=== PATIENT | female | born 1940 | race Caucasian/White ===

== ENCOUNTER 2017-12-31 09:00 | Outpatient (RCR) | payer MEDICARE, OTHER, SELFPAY ==
--- NOTE | 2017-12-23 11:29 | HP.PTEVAL ---
Patient's Visit Information LISBET RIVERA is a 77 year old F referred to Physical Therapy by Yung Woodall DPM with a diagnosis of R plantar fascitis. Date of Evaluation: 12/01/17 Physical Therapist: Peng Burdick - Visit Plan Frequency: 2x /Week Duration: 4 Weeks Plan: Start with US to plantar fascia, stretching of G/S complex, graston to plantar fascia and G/S complex. Aggressive stretching of G/S complex. - Subjective Subjective: Pt. is here today for her initial evaluation with diagnosis of R plantar fascitis. Pt. reports having pain on and off for a few years. Pt. was being treated in [place] as well, but was not having much relief. Pt. has trialed injections, and is currently using a CAM boot which has helped. Pt. is also using night splints. She has been doing her stretches x2 daily as indicated. Pt. reprots increased pain in AMs with her initial steps, and increased pain by the end of the day. She reports minimal pain in off loaded positions. She does have two heel spurs, but reports physician does not believe that they are involved with her current issue. Pt. denies N/T in her R foot, but has pain at bottom of her heel and throughout her arch. Pt. is able to sleep without issues. She is hopeful to reduce symptoms in order to get back to recreational walking activities without limitations. - Pain R heel Pain Intensity (Out of 10): 3 Pain Intensity Range: 2, 7 - Objective POSTURE: Pt. has normal posture in stance. Pt. has slight R foot equinus. Pt. has slight increased wt. shift to L side in stance. PALPATION: Pt. has increased tenderness throughotu achilles tendon, plantar surface of calcaneus, and throughout longitudinal arch, only on R side. NEURO- normal all intact. ROM: R ankle- DF 8deg, PF 48deg. INV 22deg, EVR 16deg. Pt. has normal knee ROM. L ankle- DF 15deg, PF 52deg, INV 20deg, EVER 20deg. Normal knee ROM. MMT- Pt. has normal BLE strength in knees and ankles except- R foot intrinsics 4/5 throughout, and post tib 4/5. GAIT: Pt. ambulates with decreased L step length, early heel off with RLE during stance phase. Pt. reports incerased pain with stance and heel off phases of gait and is antalgic during these two phases. Stairs: Pt. has increased difficulty/pain with descending, slight pain with loading phase of RLE with ascending. SPECIAL TESTING- possitive windlass test both when loaded and unloaded. - Goals Goal 1:: Pt. to be I with HEP. Goal Time Frame: 4-6 Weeks Goal 2:: Pt. to have icnerased R foot DF mobility to 15deg reducing stress on plantar fascia with walking and standing. Goal Time Frame: 4-6 Weeks Goal 3:: Pt. to ambulate unlimited distances with 0-2/10 pain in R foot. Goal Time Frame: 4-6 Weeks Goal 4:: Pt. to have increased foot intrinsic and post tib strength by 1/2 grade to increase stability at R ankle/foot. Goal Time Frame: 4-6 Weeks - Rehabilitation Potential Physical Therapy Diagnosis: Pt. has signs and symptoms consistent with R plantar fascitis and foot equinue. Pt. would benefit from PT to increase R ankle DF mobility/stretching, manual techniques to reduce tension on R plantar fascitis and modalities to reduce symptoms. Rehabilitation Potential: Good - Anticipated Interventions Patient/Client Instruction: Educate patient on: Condition, Plan of Care, Risk Factors, Benefits of Fitness Program For the Purpose of:: To improve safety, To improve health and function, To foster healthy habits, To improve decision making, To facilitate caregiver knowledge, To improve self management, To prevent re-injury Therapeutic Exercise to Include: Strength training, Power training, Balance training, Coordination, Body mechanics, Passive ROM, Active ROM For the Purpose of:: To decrease pain, To increase ROM, To improve nutrient delivery to tissue, To increase oxygenation perfusion, To improve muscle performance and motor function, To improve ability to perform ADL's, To improve gait and locomotor functions, To improve health of tissue, To decrease soft tissue restriction, To increase flexibility/ROM Manual Therapy Techniques to Include: Mobilization, Passive ROM, Functional dry needling, Soft tissue mobilization For the Purpose of:: To decrease pain, To increase ROM, To improve nutrient delivery to tissue, To increase oxygenation perfusion, To improve health of tissue, To decrease soft tissue restriction, To increase flexibility/ROM IF ES: Yes Cryotherapy (ice pack, ice massage): Yes Ultrasound (thermal/non thermal): Yes For the Purpose of:: To decrease pain, To decrease swelling/inflammation, To increase ROM, To improve nutrient delivery to tissue, To increase oxygenation perfusion, To improve muscle performance and motor function Thank you for the opportunity to evaluate your patient. For Medicare and Medicare HMO plans, please review the plan of care and approve it. It will need to be FAXED BACK to us at [phone] for Medicare purposes. Please let me know if there are questions or concerns regarding this plan of care. Physician Signature: Date:
--- NOTE | 2018-07-21 08:52 | HP.PT.NRP ---
HP - Discharge Summary (1) - Patient Information LISBET RIVERA was seen in my office for initial evaluation on 12/01/17. The following Plan of Care was established for this patient: Initial Frequency: 2x /Week Initial Duration: 4 Weeks - Anticipated Interventions Patient/Client Instruction: Educate patient on: Condition, Plan of Care, Risk Factors, Benefits of Fitness Program For the Purpose of:: To improve safety, To improve health and function, To foster healthy habits, To improve decision making, To facilitate caregiver knowledge, To improve self management, To prevent re-injury Therapeutic Exercise to Include: Strength training, Power training, Balance training, Coordination, Body mechanics, Passive ROM, Active ROM For the Purpose of:: To decrease pain, To increase ROM, To improve nutrient delivery to tissue, To increase oxygenation perfusion, To improve muscle performance and motor function, To improve ability to perform ADL's, To improve gait and locomotor functions, To improve health of tissue, To decrease soft tissue restriction, To increase flexibility/ROM Manual Therapy Techniques to Include: Mobilization, Passive ROM, Functional dry needling, Soft tissue mobilization For the Purpose of:: To decrease pain, To increase ROM, To improve nutrient delivery to tissue, To increase oxygenation perfusion, To improve health of tissue, To decrease soft tissue restriction, To increase flexibility/ROM IF ES: Yes Cryotherapy (ice pack, ice massage): Yes Ultrasound (thermal/non thermal): Yes For the Purpose of:: To decrease pain, To decrease swelling/inflammation, To increase ROM, To improve nutrient delivery to tissue, To increase oxygenation perfusion, To improve muscle performance and motor function This patient was last seen in our office 12/29/17. Pertinent comments regarding their Physical therapy will appear below: PT. was seen for her R plantar fasciatis. Pt. has not been seen in several months and will be DC from PT at this point intime. At this point I will be discontinuing this patient from physical therapy. I would be happy to see this patient again in the future if found appropriate by the physician. Thank you! NIKOS YeboahT
== END 2017-12-31 19:00 | disposition home or self-care (01) ==
LOC: PT 09:00
PROVIDERS: Family Provider Family Medicine; PCP Family Medicine; Visit Provider Podiatrist
DX: M72.2 Plantar fascial fibromatosis (principal); M79.671 Pain in right foot
CPT/HCPCS: 97035; 97110; 97161

== ENCOUNTER → 2018-01-26 09:42 | Outpatient (CLI) | payer MEDICARE, OTHER, SELFPAY ==
--- NOTE | 2018-01-26 10:00 | MRI_ITS ---
STUDY: MRI RIGHT REARFOOT WITHOUT CONTRAST REASON FOR EXAM: Female, 77 years old. Pain. Heel spur. Plantar fasciitis. Plantar fascial fibromatosis. TECHNIQUE: Standardized fat and water weighted pulse sequences were obtained in all 3 orthogonal planes. COMPARISON: None. FINDINGS: Normal subcutis adipose space. There is accessory navicular incorporated into the distal posterior tibialis tendon. Normal flexor digitorum longus tendon. Normal flexor hallucis longus tendon. Normal peroneus longus and brevis tendons. Normal tibialis anterior tendon. Normal extensor hallucis longus tendon. Normal extensor digitorum longus tendons. Normal Achilles tendon and teno-osseous insertion. There is a plantar fasciitis with plantar fascial thickening and fascial edema, but without a full-thickness tear. There is a plantar calcaneal spur, but without cancellous marrow edema. Normal intrinsic muscles of the rearfoot. Normal distal tibiofibular syndesmotic ligamentous complex. Normal lateral ligamentous complex. Normal subtalar ligaments and sinus tarsi. Normal deltoid ligamentous complexes. Normal plantar calcaneonavicular (spring) ligament. Normal tibiotalar articulation. Normal talar dome. Normal subtalar articulations. Normal talonavicular articulation. Normal calcaneocuboid articulation. Normal navicular-cuneiform articulations. MRI/Lower Ext/No Jt/w/o IMPRESSION: Plantar fasciitis with heel spur. Electronically Signed: Justin Ma MD at 11:40 EDT , Service support ,
== END ==
PROVIDERS: Family Provider Family Medicine; PCP Family Medicine; Visit Provider Podiatrist
DX: M72.2 Plantar fascial fibromatosis (principal); M77.31 Calcaneal spur, right foot; M79.671 Pain in right foot; M21.6X9 Other acquired deformities of unspecified foot
CPT/HCPCS: 73718

== ENCOUNTER → 2018-05-14 12:12 | Outpatient (CLI) | payer MEDICARE, OTHER, SELFPAY ==
[2014-12-04 18:11] VITALS: BMI 32.5
[2018-05-14 14:32] LABS: ALB/GLOB Ratio 1.1 RATIO (0.9-2.4); AST(SGOT) 63 U/L (15-37); Alanine Aminotransfer ALT/SGPT 119 U/L (13-56); Albumin, Serum 3.5 g/dL (3.2-5.0); Alkaline Phosphatase 252 U/L (45-117); Anion Gap 8 (5-15); BUN 12 mg/dL (7-18); BUN/Creat Ratio 13.1 RATIO (10-20); CPK Total, Creatine Kinase 47 U/L (26-192); CRP 5.79 mg/L (0.0-3.0); Calcium,Total 8.6 mg/dL (8.5-10.1); Chloride 109 mmol/L (98-107); Creatinine, Serum 0.92 mg/dL (0.55-1.02); EST Glomerular Filtration Rate 63 mL/min (>60); Est Glom Filt Rate - Afr Amer 76 mL/min (>60); Globulin 3.3 g/dL (2.2-4.2); Glucose 73 mg/dL (74-106); Potassium 3.9 mmol/L (3.5-5.1); Protein, Total 6.8 g/dL (6.4-8.2); Sodium Level 143 mmol/L (136-145); T4 Free Direct 1.09 ng/dL (0.76-1.46); Thyroid Stim Hormone (TSH) 0.85 uIU/mL (0.358-3.74)
[2018-05-14 14:35] LABS: Erythrocyte Sedimentation Rate 8 mm/hr (0-30)
== END ==
PROVIDERS: Family Provider Family Medicine; PCP Family Medicine; Referring Provider Family Medicine; Visit Provider Family Medicine
DX: R25.2 Cramp and spasm (principal); E03.9 Hypothyroidism, unspecified
CPT/HCPCS: 36415; 80053; 82550; 84439; 84443; 85652; 86140

== ENCOUNTER → 2018-11-24 11:38 | Outpatient (CLI) | payer MEDICARE, OTHER, SELFPAY ==
[2014-12-04 18:11] VITALS: BMI 32.5
[2018-11-24 15:45] LABS: Cholesterol 144 mg/dL (200); High Density Lipoprotein 36 mg/dL; Triglycerides 147 mg/dL; Very Low Density Lipoprotein 29 mg/dL (5-40)
== END ==
PROVIDERS: Family Provider Family Medicine; PCP Family Medicine; Visit Provider Family Medicine
DX: E78.5 Hyperlipidemia, unspecified (principal)
CPT/HCPCS: 36415; 80061

== ENCOUNTER → 2018-12-07 13:10 | Outpatient (CLI) | payer MEDICARE, OTHER, SELFPAY ==
[2014-12-04 18:11] VITALS: BMI 32.5
[2018-12-07 15:52] LABS: ALB/GLOB Ratio 1.1 RATIO (0.9-2.4); AST(SGOT) 33 U/L (15-37); Alanine Aminotransfer ALT/SGPT 64 U/L (13-56); Albumin, Serum 3.6 g/dL (3.2-5.0); Alkaline Phosphatase 78 U/L (45-117); Anion Gap 5 (5-15); BUN 21 mg/dL (7-18); BUN/Creat Ratio 19.4 RATIO (10-20); CPK Total, Creatine Kinase 34 U/L (26-192); Calcium,Total 8.9 mg/dL (8.5-10.1); Chloride 108 mmol/L (98-107); Creatinine, Serum 1.08 mg/dL (0.55-1.02); EST Glomerular Filtration Rate 52 mL/min (>60); Est Glom Filt Rate - Afr Amer 63 mL/min (>60); GGTP 36 U/L (5-55); Globulin 3.2 g/dL (2.2-4.2); Glucose 88 mg/dL (74-106); Potassium 4.6 mmol/L (3.5-5.1); Protein, Total 6.8 g/dL (6.4-8.2); Sodium Level 142 mmol/L (136-145)
[2018-12-08 09:41] LABS: Hepatitis C Antibody Non-Reactive (Nonreactive)
== END ==
PROVIDERS: Family Provider Family Medicine; PCP Family Medicine; Visit Provider Family Medicine
DX: R74.8 Abnormal levels of other serum enzymes (principal); M79.10 Myalgia, unspecified site; Z51.81 Encounter for therapeutic drug level monitoring
CPT/HCPCS: 36415; 80053; 82550; 82977; 86803

== ENCOUNTER → 2019-12-07 10:16 | Outpatient (CLI) | payer MEDICARE, OTHER, SELFPAY ==
[2019-12-07 09:45] VITALS: BMI 36.0
[2019-12-07 12:39] LABS: Absolute Lymphocyte Count 1.94 X10^3/uL (0.83-4.51); Absolute Neutrophil Count 3.5 X10^3/uL (2.0-7.7); Basophil# 0.03 X10^3/uL; Basophil% 0.5 % (0-1); Eosinophil# 0.14 X10^3/uL; Eosinophils% 2.3 % (0-5); Hematocrit 39.3 % (37-47); Hemoglobin 12.6 g/dL (12.0-15.0); Lymphocyte # 1.94 X10^3/ul (4.0); Lymphocyte % 31.5 % (19-41); Mean Corp Hgb Conc 32.1 g/dL (32-36); Mean Corpuscular Hgb 31.3 pg (27.0-32.0); Mean Corpuscular Volume 97.5 fL (81-99); Monocyte# 0.58 X10^3/uL; Monocyte% 9.4 % (0-10); NRBC Flagged by Analyzer 0 % (0-5); Neutrophil # 3.46 X10^3/uL (2.7-7.7); Neutrophil % 56.1 % (47-70); Platelet Count 224 K/mm3 (150-450); RBC Distribution Width CV 12.4 % (11.6-14.6); RBC Distribution Width SD 44.3 fl (35.1-43.9); Red Blood Count 4.03 M/mm3 (4.2-5.4); White Blood Count 6.2 K/mm3 (4.4-11.0)
[2019-12-07 12:48] LABS: ALB/GLOB Ratio 1.1 RATIO (0.9-2.4); AST(SGOT) 17 U/L (15-37); Alanine Aminotransfer ALT/SGPT 26 U/L (13-56); Albumin, Serum 3.3 g/dL (3.2-5.0); Alkaline Phosphatase 70 U/L (45-117); BUN 11 mg/dL (7-18); BUN/Creat Ratio 11.9 RATIO (10-20); Calcium,Total 8.3 mg/dL (8.5-10.1); Cholesterol 174 mg/dL (200); Creatinine, Serum 0.93 mg/dL (0.55-1.02); EST Glomerular Filtration Rate 62 mL/min (>60); Est Glom Filt Rate - Afr Amer 75 mL/min (>60); Glucose 74 mg/dL (74-106); Protein, Total 6.3 g/dL (6.4-8.2); Triglycerides 200 mg/dL
[2019-12-07 12:49] LABS: Anion Gap 3 (5-15); Chloride 113 mmol/L (98-107); High Density Lipoprotein 28 mg/dL; Potassium 3.9 mmol/L (3.5-5.1); Sodium Level 144 mmol/L (136-145); Very Low Density Lipoprotein 40 mg/dL (5-40)
== END ==
PROVIDERS: PCP Internal Medicine; Visit Provider Internal Medicine
DX: G47.10 Hypersomnia, unspecified (principal); E03.9 Hypothyroidism, unspecified; K21.9 Gastro-esophageal reflux disease without esophagitis; E78.5 Hyperlipidemia, unspecified
CPT/HCPCS: 36415; 80053; 80061; 85025

== ENCOUNTER → 2019-12-14 17:02 | Outpatient (CLI) | payer MEDICARE, OTHER, SELFPAY ==
[2019-12-07 09:45] VITALS: BMI 36.0
--- NOTE | 2019-12-14 17:08 | MRI_ITS ---
STUDY: MRI RIGHT REARFOOT WITHOUT CONTRAST REASON FOR EXAM: Female, 79 years old. RT FOOT PLANTAR FACIITIS, HEEL SPUR -- chronic arch pain, now has knee pain also, no recent injury, same sx as 2018 mri foot TECHNIQUE: Standardized fat and water weighted pulse sequences were obtained in all 3 orthogonal planes. COMPARISON: MRI of the right ankle dated January 26 2018. FINDINGS: Normal subcutis adipose space. Normal posterior tibialis tendon. Normal flexor digitorum longus tendon. Normal flexor hallucis longus tendon. Normal peroneus longus and brevis tendons. Normal tibialis anterior tendon. Normal extensor hallucis longus tendon. Normal extensor digitorum longus tendons. Normal Achilles tendon and teno-osseous insertion. Normal plantar fascia. A small plantar calcaneal spur is present and associated with minimal thickening of the medial band of plantar fascia immediately below the spur. The remaining aspects of the plantar fascia are normal. Normal intrinsic muscles of the rearfoot. Normal distal tibiofibular syndesmotic ligamentous complex. Normal lateral ligamentous complex. Normal subtalar ligaments and sinus tarsi. Normal deltoid ligamentous complexes. Normal plantar calcaneonavicular (spring) ligament. Normal tibiotalar articulation. Normal talar dome. Normal subtalar articulations. Normal talonavicular articulation. Normal calcaneocuboid articulation. Normal navicular-cuneiform articulations. MRI/Lower Ext/No Jt/w/o IMPRESSION: 1. Small plantar calcaneal spur associated with minimal thickening of the medial band of plantar fascia immediately below the spur. The remaining aspects of the plantar fascia are normal. Electronically Signed: Erwin Denson MD at 22:33 EDT , Service support ,
== END ==
PROVIDERS: PCP Internal Medicine; Referring Provider Podiatrist; Visit Provider Podiatrist
DX: M72.2 Plantar fascial fibromatosis (principal)
CPT/HCPCS: 73718

== ENCOUNTER → 2019-12-15 13:00 | Outpatient (CLI) | payer MEDICARE, OTHER, SELFPAY ==
[2019-12-07 09:45] VITALS: BMI 36.0
== END ==
PROVIDERS: PCP Internal Medicine; Referring Provider Internal Medicine; Visit Provider Internal Medicine
DX: G47.10 Hypersomnia, unspecified (principal)
CPT/HCPCS: 95806

== ENCOUNTER → 2020-01-10 20:29 | Outpatient (CLI) | payer MEDICARE, OTHER, SELFPAY ==
[2020-01-02 08:18] VITALS: BMI 36.0
[2020-01-05 16:29] VITALS: BMI 36.0
== END ==
PROVIDERS: PCP Internal Medicine; Visit Provider Nurse Practitioner Acute Care
DX: G47.33 Obstructive sleep apnea (adult) (pediatric) (principal)
CPT/HCPCS: 95811

== ENCOUNTER → 2020-02-02 09:00 | Outpatient (CLI) | payer MEDICARE, OTHER, SELFPAY ==
[2020-02-01 09:00] VITALS: BMI 34.9
== END ==
PROVIDERS: PCP Internal Medicine; Visit Provider Nurse Practitioner Acute Care
DX: G47.33 Obstructive sleep apnea (adult) (pediatric) (principal)
CPT/HCPCS: 98960; G0463

== ENCOUNTER → 2020-11-27 11:05 | Outpatient (CLI) | payer MEDICARE, OTHER, SELFPAY ==
[2020-11-07 05:48] VITALS: BMI 36.6
[2020-11-27 12:41] LABS: Anion Gap 6 (5-15); BNP,B-Type NATRIURETIC PEPTIDE 67.7 pg/mL (0-100); BUN 10 mg/dL (7-18); BUN/Creat Ratio 10.7 RATIO (10-20); Calcium,Total 8.3 mg/dL (8.5-10.1); Chloride 109 mmol/L (98-107); Creatinine, Serum 0.93 mg/dL (0.55-1.02); EST Glomerular Filtration Rate 61 mL/min (>60); Est Glom Filt Rate - Afr Amer 74 mL/min (>60); Glucose 85 mg/dL (74-106); Sodium Level 142 mmol/L (136-145)
== END ==
PROVIDERS: PCP Internal Medicine; Referring Provider Nurse Practitioner Acute Care; Visit Provider Nurse Practitioner Acute Care
DX: R06.00 Dyspnea, unspecified (principal)
CPT/HCPCS: 36415; 80048; 83880

== ENCOUNTER → 2020-12-03 10:37 | Outpatient (CLI) | payer MEDICARE, OTHER, SELFPAY ==
[2020-12-03 10:06] VITALS: BMI 36.2
--- NOTE | 2020-12-03 10:41 | RAD_ITS ---
STUDY: X-RAY - LEFT SHOULDER REASON FOR EXAM: Female, 80 years old. Left shoulder pain. TECHNIQUE: 2 view(s) of the shoulder on 4 images. COMPARISON: None. FINDINGS: Osteopenia. Mild arthrosis of the glenohumeral joint. Mild arthrosis of the AC joint. Normal acromion. Normal humeral head and visualized proximal humerus. The soft tissue structures are unremarkable. Normal visualized pulmonary apex. RAD/Shoulder min 2 Views IMPRESSION: Osteopenia with mild arthrosis of the humeral and acromioclavicular joints. No acute abnormality. Electronically Signed: Nick Dhillon MD at 12:54 EDT , Service support ,
== END ==
PROVIDERS: PCP Internal Medicine; Referring Provider Internal Medicine; Visit Provider Internal Medicine
DX: M19.012 Primary osteoarthritis, left shoulder (principal)
CPT/HCPCS: 73030

== ENCOUNTER → 2021-01-09 | Outpatient (CLI) | payer MEDICARE, OTHER, SELFPAY | END | disposition home or self-care (01) | LOC: LABSPEC 16:10 | PROVIDERS: PCP Internal Medicine; Referring Provider Nurse Practitioner Acute Care; Visit Provider Nurse Practitioner Acute Care | DX: J02.9 Acute pharyngitis, unspecified (principal) | CPT/HCPCS: 87635; U0005; U0003 ==

== ENCOUNTER 2021-01-10 12:58 | Observation (INO) | payer MEDICARE, OTHER, SELFPAY ==
[2021-01-10] VITALS (8 sets, daily range): BP systolic 152–154; BP diastolic 66–72; PULSE 68–87; RESP 12–18; TEMP 36.6–36.9; O2SAT 94–97; BMI 36.1
--- NOTE | 2021-01-10 12:58 | PCS.PANDOC ---
PANDEMIC DOCUMENTATION INITIATED: Date: 12/24/2020 Time: 190
[2021-01-10] MEDS: dexAMETHasone 4 MG/ML Vial 8 MG IV ×2 (14:39→21:42)
--- NOTE | 2021-01-10 17:15 | PCM.HP.STD ---
HPI - General General Date of Admission: 01/10/21 HPI Narrative LISBET RIVERA, is a 80 F who presents to ENT with sore throat. She had gone to an urgent care and was tested for Covid which was negative however she continued to have a sore throat and a fullness in her throat. Her ENT did a scope and noticed epiglottitis and recommended her to be admitted to the hospital. She denies any significant shortness of breath, she does feel like her voice is a little bit raspy and in the back of her throat is little bit full but denies any lightheadedness or dizziness. No fevers or chills at home. [facility] Medical History (Updated 01/10/21 @ 17:[address] Paul Muñiz MD) Arthritis Bilateral carotid artery stenosis Carpal tunnel syndrome Depression Dizziness Encounter for screening for COVID-19 Essential hypertension Gallstones GERD (gastroesophageal reflux disease) Hearing problem Hormone deficiency Hypothyroidism IBS (irritable bowel syndrome) Left shoulder pain Menieres disease Mixed hyperlipidemia Paroxysmal atrial fibrillation Paroxysmal supraventricular tachycardia Rosacea Seasonal allergies Sinus bradycardia URI (upper respiratory infection) Vertigo Home Medications calcium carbonate-vitamin D3 1 ea PO DAILY 12/04/14 [History Last Taken 01/09/21] estradiol 0.5 mg PO DAILY 12/04/14 [History Last Taken 01/09/21] lactase 1 tab PO PRN PRN 12/04/14 [History Last Taken Unknown] clindamycin phosphate 1 % topical gel 1 applic TOPICAL BID 11/29/19 [History Last Taken Unknown] meclizine 25 mg tablet 25 mg PO TID PRN 11/29/19 [History Last Taken 01/09/21] mometasone 0.1 % topical cream 1 applic TOPICAL BID PRN g 11/29/19 [History Last Taken Unknown] rabeprazole 20 mg tablet,delayed release 20 mg PO DAILY 11/29/19 [History Last Taken 01/09/21] albuterol sulfate 90 mcg/actuation aerosol inhaler 1 puff INHALATION Q6H PRN g 01/25/20 [History Last Taken Unknown] cholecalciferol (vitamin D3) 50 mcg (2,000 unit) tablet 50 mcg PO DAILY 01/25/20 [History Last Taken 01/09/21] metoprolol succinate 25 mg tablet,extended release 24 hr 25 mg PO DAILY #1 tab 01/25/20 [Rx Last Taken 01/09/21] azelastine 205.5 mcg (0.15 %) nasal spray 2 spray INTRANASAL DAILY PRN 04/17/20 [History Last Taken Unknown] levothyroxine 75 mcg tablet 88 mcg PO DAILY tab 10/11/20 [History Last Taken 01/09/21] montelukast 10 mg tablet 10 mg PO DAILY 10/11/20 [History Last Taken 01/09/21] rosuvastatin 20 mg tablet 20 mg PO DAILY 10/11/20 [History Last Taken 01/09/21] cetirizine 10 mg tablet 10 mg PO DAILY PRN 12/05/20 [History Last Taken 01/09/21] sertraline 100 mg tablet 100 mg PO DAILY tab 12/05/20 [History Last Taken Unknown] budesonide 1 mg/2 mL suspension for nebulization 1 mg INHALATION BID #60 ml 01/09/21 [Rx Last Taken Unknown] formoterol fumarate [Perforomist] 20 mcg INHALATION BID 01/10/21 [History Last Taken 01/09/21] Allergy/AdvReac Type Severity Reaction Status Date / Time adhesive tape Allergy Unknown unknown Verified 01/09/21 11:10 influenza virus vaccine, Allergy Unknown unknown Verified 01/09/21 11:10 specific neomycin Allergy Unknown unknown Verified 01/09/21 11:10 [From Neosporin ([id number])] bacitracin Allergy Rash Verified 01/09/21 11:10 [From Neosporin ([id number])] bacitracin zinc Allergy Rash Verified 01/09/21 11:10 [From Neosporin ([id number])] neomycin sulfate Allergy Rash Verified 01/09/21 11:10 [From Neosporin ([id number])] polymyxin B Allergy Rash Verified 01/09/21 11:10 [From Neosporin ([id number])] aspirin AdvReac Other Verified 01/09/21 11:10 codeine AdvReac Other Verified 01/09/21 11:10 feathers AdvReac swelling, Verified 01/09/21 11:11 itching morphine AdvReac Other Verified 01/09/21 11:10 Family History Father Alcoholism CVA (cerebral vascular accident) Mother CVA (cerebral vascular accident) Brother CVA (cerebral vascular accident) Sister CVA (cerebral vascular accident) Thyroid disorder Kidney disease Surgical History H/O: hysterectomy History of bunionectomy History of cardiac catheterization (~07/08/19) History of cholecystectomy History of laminectomy Social History Smoking Status: Never smoker alcohol intake: current Alcohol type: beer and hard liquor substance use type: does not use caffeine: No what type of physical activity do you participate in: none ROS Constitutional Constitutional: Denies chills, fatigue, fever(s) or malaise Eyes Eyes: Denies blurry vision ENT HEENT: Reports sore throat; Denies headache(s) or nasal discharge Cardiovascular Cardiovascular: Denies chest pain, dyspnea on exertion or syncope Respiratory/Chest Respiratory/Chest: Denies cough, shortness of breath at rest or shortness of breath with exertion Gastrointestinal Gastrointestinal: Denies constipation, diarrhea, nausea or vomiting Genitourinary Genitourinary: Denies dysuria Neurologic Neurologic: Denies focal weakness, numbness or tremor(s) Psychiatric Psychiatric: Denies anxiety or depression Vital Signs Vital Signs Vital Signs: 01/10/21 12:58 01/10/21 13:28 01/10/21 13:34 Temperature 98.4 F Temperature Source Oral Pulse Rate 72 73 Respiratory Rate 12 Respiratory Effort Normal Non-Labored Short of Breath Respiratory Depth Normal Respiratory Pattern Normal Blood Pressure 153/66 H Blood Pressure Mean 95 Blood Pressure Source Monitor Blood Pressure Position Semi-Fowlers Blood Pressure Location Right Forearm Pulse Ox 96 Oxygen Delivery Method Nasal Cannula Room Air 01/10/21 14:52 01/10/21 15:44 Temperature 98.5 F Temperature Source Oral Pulse Rate 68 72 Respiratory Rate 18 Respiratory Effort Respiratory Depth Respiratory Pattern Blood Pressure 152/72 H Blood Pressure Mean 98 Blood Pressure Source Blood Pressure Position Blood Pressure Location Pulse Ox 97 Oxygen Delivery Method Room Air Weight Weight: 191 lb 2 oz Body Mass Index (BMI) 36.1 Physical Exam Const alert, oriented x3 and no apparent distress General Appearance: cooperative HEENT normocephalic and moist oral mucous membranes Eyes PERRL, EOMs intact bilaterally and conjunctivae normal Neck supple and no JVD Resp normal respiratory effort, no retractions, no use of accessory muscles and clear to auscultation bilaterally Auscultation: Negative for crackles, rales, rhonchi or wheezes Cardio regular rate, regular rhythm, S1 normal heart sound, S2 normal heart sound and no murmurs GI soft to palpation, non-tender and non-distended; Negative for hepatosplenomegaly Extremity no clubbing, cyanosis or edema Skin no rashes or lesions noted Neuro no focal motor deficits and no sensory deficits noted Psych affect normal Appearance: appropriate Assessment & Plan Assessment/Plan (1) Epiglottitis: PLAN: 1. Epiglottitis -We will continue with Unasyn and Decadron -We will need to do 3 doses of the Decadron, and then hopefully will be able to discharge on p.o. antibiotics -Continue monitoring oxygen saturations and if she does worsen we will need to consult ENT for intubation 2. Paroxysmal A. fib/HLD/hypothyroidism/GERD/anxiety/depression -These are chronic medical problems which do complicate her care. -Once her medications are finalized, can restart her home meds DVT: Ambulation Charges/Coding Visit Charges OBSV E&M: [id number] Initial observation care L2
[2021-01-10] MEDS: 0.9% Saline Lock 10 ML Syringe IV ×2 (21:43→23:36)
[2021-01-11 02:53] VITALS: BP 127/57; PULSE 77; RESP 16; TEMP 36.1; O2SAT 97
[2021-01-11 03:57] VITALS: PULSE 78
[2021-01-11] MEDS: dexAMETHasone 4 MG/ML Vial 8 MG IV (05:11)
[2021-01-11] MEDS: 0.9% Saline Lock 10 ML Syringe IV (05:12)
[2021-01-11 05:29] LABS: Absolute Lymphocyte Count 0.92 X10^3/uL (0.83-4.51); Absolute Neutrophil Count 15.1 X10^3/uL (2.0-7.7); Basophil# 0.01 X10^3/uL; Basophil% 0.1 % (0-1); Hematocrit 38.4 % (37-47); Hemoglobin 12.7 g/dL (12.0-15.0); Lymphocyte # 0.92 X10^3/ul (0.83-4.51); Lymphocyte % 5.6 % (19-41); Mean Corp Hgb Conc 33.1 g/dL (32-36); Mean Corpuscular Volume 93.7 fL (81-99); Mean Platelet Vol. 9.7 fl (6.2-12.0); Monocyte# 0.15 X10^3/uL; Monocyte% 0.9 % (0-10); NRBC Flagged by Analyzer 0 % (0-5); Neutrophil # 15.05 X10^3/uL (2.7-7.7); Neutrophil % 92.4 % (47-70); Platelet Count 199 K/mm3 (150-450); RBC Distribution Width CV 12.3 % (11.6-14.6); RBC Distribution Width SD 42.7 fl (35.1-43.9); White Blood Count 16.3 K/mm3 (4.4-11.0)
[2021-01-11 06:05] LABS: Anion Gap 8 (5-15); BUN 11 mg/dL (7-18); BUN/Creat Ratio 14.4 RATIO (10-20); Calcium,Total 8.6 mg/dL (8.5-10.1); Chloride 107 mmol/L (98-107); Creatinine, Serum 0.76 mg/dL (0.55-1.02); EST Glomerular Filtration Rate 77 mL/min (>60); Est Glom Filt Rate - Afr Amer 93 mL/min (>60); Estimated Creatinine Clearance 33.29 ml/min; Glucose 153 mg/dL (74-106); Potassium 3.8 mmol/L (3.5-5.1); Sodium Level 139 mmol/L (136-145)
[2021-01-11 07:20] VITALS: PULSE 77
[2021-01-11 09:35] VITALS: BP 144/71; PULSE 88; RESP 16; TEMP 36.6; O2SAT 97
--- NOTE | 2021-01-11 09:58 | PCM.DC ---
Discharge Instructions Diet Discharge Diet: Low fat / Low cholesterol Activity Discharge Activity: Return to Normal Activity Dressing / Incision Call your doctor if you observe: Fever of 101 or Higher, Shortness of breath, Dizziness, Swelling in the ankles, Chest pain and Increased palpitations (irregular heartbeat) Follow Up Care Test Results: Test results from this visit will be discussed in further detail at your follow-up appointment, if applicable. Discharge Plan Admission Admit Date/Time: 01/10/21 12:26 Attending Provider: Paul Muñiz Primary Care Provider: Lindy Fonseca Discharge Orders/Prescriptions Prescriptions: New amoxicillin-pot clavulanate [Augmentin] 875-125 mg tablet 1 tab PO Q12H Qty: 14 RF: 0 Continued albuterol sulfate [Ventolin HFA] 90 mcg/actuation HFA aerosol inhaler 1 puff INHALATION Q6H PRN (Reason: breathing) RF: 0 meclizine 25 mg tablet 25 mg PO TID PRN (Reason: dizziness) RF: 0 rabeprazole 20 mg tablet,delayed release (DR/EC) 20 mg PO DAILY RF: 0 mometasone 0.1 % cream 1 applic TOPICAL BID PRN (Reason: rosacea) RF: 0 clindamycin phosphate 1 % gel 1 applic TOPICAL BID RF: 0 levothyroxine [Synthroid] 75 mcg tablet 88 mcg PO DAILY RF: 0 sertraline 100 mg tablet 100 mg PO DAILY RF: 0 cholecalciferol (vitamin D3) 50 mcg (2,000 unit) tablet 50 mcg PO DAILY RF: 0 metoprolol succinate 25 mg tablet extended release 24 hr 25 mg PO DAILY Qty: 1 RF: 0 Hold Instructions: Order Changed azelastine 0.15 % (205.5 mcg) spray,non-aerosol 2 spray INTRANASAL DAILY PRN (Reason: breathing) RF: 0 cetirizine 10 mg tablet 10 mg PO DAILY PRN (Reason: allergies\) RF: 0 rosuvastatin 20 mg tablet 20 mg PO DAILY RF: 0 montelukast [Singulair] 10 mg tablet 10 mg PO DAILY RF: 0 budesonide 1 mg/2 mL suspension for nebulization 1 mg inhalation BID Qty: 60 RF: 6 lactase 3,000 UNIT tablet 1 tab PO PRN PRN (Reason: unk) RF: 0 estradiol 0.5 MG tablet 0.5 mg PO DAILY RF: 0 calcium carbonate-vitamin D3 1 EACH tablet 1 ea PO DAILY RF: 0 formoterol fumarate [Perforomist] 20 mcg/2 mL solution for nebulization 20 mcg INHALATION BID RF: 0 Referrals / Follow Up: Lindy Fonseca MD [Primary Care Provider] - Within 1 Week Shiva Cunningham MD [STAFF PHYSICIAN] - Within 1 Week Disposition Disposition (needs filled in before D/C Order can be placed): Home, Self Care
--- NOTE | 2021-01-11 13:11 | PCM.DC.SUM ---
Providers Date of Admission: 01/10/21 Primary Care Physician: Dr. Lindy Fonseca MD Reason For Visit: EPIGLOTTITIS Diagnosis Discharge Diagnosis (1) Epiglottitis: Status: Acute Code(s): J05.10 - Acute epiglottitis without obstruction Medications at Discharge Home Medications calcium carbonate-vitamin D3 1 ea PO DAILY 12/04/14 estradiol 0.5 mg PO DAILY 12/04/14 lactase 1 tab PO PRN PRN 12/04/14 clindamycin phosphate 1 % topical gel 1 applic TOPICAL BID 11/29/19 meclizine 25 mg tablet 25 mg PO TID PRN 11/29/19 mometasone 0.1 % topical cream 1 applic TOPICAL BID PRN g 11/29/19 rabeprazole 20 mg tablet,delayed release 20 mg PO DAILY 11/29/19 albuterol sulfate 90 mcg/actuation aerosol inhaler 1 puff INHALATION Q6H PRN g 01/25/20 cholecalciferol (vitamin D3) 50 mcg (2,000 unit) tablet 50 mcg PO DAILY 01/25/20 metoprolol succinate 25 mg tablet,extended release 24 hr 25 mg PO DAILY #1 tab 01/25/20 azelastine 205.5 mcg (0.15 %) nasal spray 2 spray INTRANASAL DAILY PRN 04/17/20 levothyroxine 75 mcg tablet 88 mcg PO DAILY tab 10/11/20 montelukast 10 mg tablet 10 mg PO DAILY 10/11/20 rosuvastatin 20 mg tablet 20 mg PO DAILY 10/11/20 cetirizine 10 mg tablet 10 mg PO DAILY PRN 12/05/20 sertraline 100 mg tablet 100 mg PO DAILY tab 12/05/20 budesonide 1 mg/2 mL suspension for nebulization 1 mg INHALATION BID #60 ml 01/09/21 formoterol fumarate [Perforomist] 20 mcg INHALATION BID 01/10/21 amoxicillin-pot clavulanate [Augmentin] 1 tab PO Q12H #14 tab 01/11/21 Hospital Course Operations None Procedures None Summary of Care Provided Minutes Spent on Discharge: 37 Hospital Course: Per HPI: LISBET RIVERA, is a 80 F who presents to ENT with sore throat. She had gone to an urgent care and was tested for Covid which was negative however she continued to have a sore throat and a fullness in her throat. Her ENT did a scope and noticed epiglottitis and recommended her to be admitted to the hospital. She denies any significant shortness of breath, she does feel like her voice is a little bit raspy and in the back of her throat is little bit full but denies any lightheadedness or dizziness. No fevers or chills at home. Hospital Course: 1. [id number] female who presented from her ENTs office with epiglottitis. There is no significant concern for airway collapse however he wanted to get her treated quickly. She was given Decadron 8 mg IV for 3 doses and also started on IV Unasyn. Today she says that her swelling feels less and that she is breathing a little bit better and she still has a sore throat but swallows little bit easier as well. I discussed with her the possibility of staying if she felt like she needed to or going home with oral antibiotics and outpatient follow-up. She decided she would like to go home today. I did discuss with her the risk and benefits of discharge today and she expressed understanding. She did have an elevated white count today which is likely going to be partially reactive and secondary to epiglottitis. She will follow up with her PCP in 3 to 5 days as well. 2. Paroxysmal A. fib, hyperlipidemia, hypothyroidism, GERD, anxiety, depression all chronic medical conditions which complicate her care. Her home medications were continued were appropriate Physical Exam Const alert, oriented x3 and no apparent distress General Appearance: cooperative HEENT normocephalic and moist oral mucous membranes Eyes PERRL, EOMs intact bilaterally and conjunctivae normal Neck supple and no JVD Resp normal respiratory effort, no retractions, no use of accessory muscles and clear to auscultation bilaterally Auscultation: Negative for crackles, rales, rhonchi or wheezes Cardio regular rate, regular rhythm, S1 normal heart sound, S2 normal heart sound and no murmurs GI soft to palpation, non-tender and non-distended; Negative for hepatosplenomegaly Extremity no clubbing, cyanosis or edema Skin no rashes or lesions noted Neuro no focal motor deficits and no sensory deficits noted Psych affect normal Appearance: appropriate Weight / BMI Weight Weight: 191 lb 2 oz Body Mass Index (BMI) 36.1 ABG / Lab / Microbiology Data Result Diagrams: 01/11/21 04:50 01/11/21 04:50 Laboratory: Laboratory Results - last 24 hr 01/11/21 04:50: WBC 16.3 H, RBC 4.10 L, Hgb 12.7, Hct 38.4, MCV 93.7, MCH 31.0, MCHC 33.1, RDW Std Deviation 42.7, RDW Coeff of María 12.3, Plt Count 199, MPV 9.7, Immature Gran % (Auto) 1.000 H, Neut % (Auto) 92.4 H, Lymph % (Auto) 5.6 L, [place] % (Auto) 0.9, Eos % (Auto) 0.0, Baso % (Auto) 0.1, Absolute Neuts (auto) 15.1 H, Absolute Lymphs (auto) 0.92, Nucleated RBC % 0 01/11/21 04:50: Sodium 139, Potassium 3.8, Chloride 107, Carbon Dioxide 24.0, Anion Gap 8, BUN 11, Creatinine 0.76, Estim Creat Clear Calc 33.29, Est GFR (MDRD) Af Amer 93, Est GFR (MDRD) Non-Af 77, BUN/Creatinine Ratio 14.4, Glucose 153 H, Calcium 8.6 D/C Instructions Discharge Diet: Low fat / Low cholesterol Call your doctor if you observe: Fever of 101 or Higher, Shortness of breath, Dizziness, Swelling in the ankles, Chest pain and Increased palpitations (irregular heartbeat) Meaningful Use Info Meaningful Use Diagnoses (Choose all that apply): None applicable Discharge Plan Admission Admit Date/Time: 01/10/21 12:26 Attending Provider: Paul Muñiz Primary Care Provider: Lindy Fonseca Discharge Orders/Prescriptions Prescriptions: New amoxicillin-pot clavulanate [Augmentin] 875-125 mg tablet 1 tab PO Q12H Qty: 14 RF: 0 Continued albuterol sulfate [Ventolin HFA] 90 mcg/actuation HFA aerosol inhaler 1 puff INHALATION Q6H PRN (Reason: breathing) RF: 0 meclizine 25 mg tablet 25 mg PO TID PRN (Reason: dizziness) RF: 0 rabeprazole 20 mg tablet,delayed release (DR/EC) 20 mg PO DAILY RF: 0 mometasone 0.1 % cream 1 applic TOPICAL BID PRN (Reason: rosacea) RF: 0 clindamycin phosphate 1 % gel 1 applic TOPICAL BID RF: 0 levothyroxine [Synthroid] 75 mcg tablet 88 mcg PO DAILY RF: 0 sertraline 100 mg tablet 100 mg PO DAILY RF: 0 cholecalciferol (vitamin D3) 50 mcg (2,000 unit) tablet 50 mcg PO DAILY RF: 0 metoprolol succinate 25 mg tablet extended release 24 hr 25 mg PO DAILY Qty: 1 RF: 0 Hold Instructions: Order Changed azelastine 0.15 % (205.5 mcg) spray,non-aerosol 2 spray INTRANASAL DAILY PRN (Reason: breathing) RF: 0 cetirizine 10 mg tablet 10 mg PO DAILY PRN (Reason: allergies\) RF: 0 rosuvastatin 20 mg tablet 20 mg PO DAILY RF: 0 montelukast [Singulair] 10 mg tablet 10 mg PO DAILY RF: 0 budesonide 1 mg/2 mL suspension for nebulization 1 mg inhalation BID Qty: 60 RF: 6 lactase 3,000 UNIT tablet 1 tab PO PRN PRN (Reason: unk) RF: 0 estradiol 0.5 MG tablet 0.5 mg PO DAILY RF: 0 calcium carbonate-vitamin D3 1 EACH tablet 1 ea PO DAILY RF: 0 formoterol fumarate [Perforomist] 20 mcg/2 mL solution for nebulization 20 mcg INHALATION BID RF: 0 Referrals / Follow Up: Lindy Fonseca MD [Primary Care Provider] - Within 1 Week Shiva Cunningham MD [STAFF PHYSICIAN] - Within 1 Week Disposition Disposition (needs filled in before D/C Order can be placed): Home, Self Care Charges/Coding Visit Charges OBSV E&M: 54694 Observation care discharge
== END 2021-01-11 10:11 | disposition home or self-care (01) ==
PROVIDERS: Admitting Provider Family Medicine; PCP Internal Medicine; Visit Provider Family Medicine
DX: J05.10 Acute epiglottitis without obstruction (principal); M19.90 Unspecified osteoarthritis, unspecified site; F32.9 Major depressive disorder, single episode, unspecified; I10 Essential (primary) hypertension; K21.9 Gastro-esophageal reflux disease without esophagitis; E03.9 Hypothyroidism, unspecified; E78.2 Mixed hyperlipidemia; I48.0 Paroxysmal atrial fibrillation; K58.9 Irritable bowel syndrome, unspecified; I47.1 Supraventricular tachycardia; F41.9 Anxiety disorder, unspecified
CPT/HCPCS: 36415; 80048; 85025; 96365; 96366; 96375; 96376; 99218; J7050; A4216; G0378; G0379; J0295

== ENCOUNTER 2021-01-13 11:34 | Emergency (ER) | payer MEDICARE, OTHER, SELFPAY ==
[2021-01-13 11:35] VITALS: BP 130/45; PULSE 71; RESP 19; TEMP 35.7; O2SAT 97; BMI 36.2
--- NOTE | 2021-01-13 12:59 | EX.ED.DYSGE1 ---
HPI History of Present Illness Chief Complaint: Sore Throat Informant: patient Narrative Narrative: Patient is an 80-year-old female that was really discharged from the hospital for epiglottitis. She is on a course of steroids and antibiotics. She is currently still on Augmentin. She is presenting with worsening throat pain. She states she has painful swallowing and it feels like a burning sensation. She denies any drooling or difficulty breathing. She notes her neck does feel a little bit irritated and swollen. She spoke to her ENT doctor, Dr. Gonzalez, who thought she had thrush and recommend she come to the emergency room to be evaluated further. Patient has a history of thrush. She denies any other complaints at this time. [facility] Medical History Arthritis Bilateral carotid artery stenosis Carpal tunnel syndrome Depression Dizziness Encounter for screening for COVID-19 Essential hypertension Gallstones GERD (gastroesophageal reflux disease) Hearing problem Hormone deficiency Hypothyroidism IBS (irritable bowel syndrome) Left shoulder pain Menieres disease Mixed hyperlipidemia Paroxysmal atrial fibrillation Paroxysmal supraventricular tachycardia Rosacea Seasonal allergies Sinus bradycardia URI (upper respiratory infection) Vertigo Home Medications calcium carbonate-vitamin D3 1 ea PO DAILY 12/04/14 [History Last Taken 01/09/21] estradiol 0.5 mg PO DAILY 12/04/14 [History Last Taken 01/09/21] lactase 1 tab PO PRN PRN 12/04/14 [History Last Taken Unknown] clindamycin phosphate 1 % topical gel 1 applic TOPICAL BID 11/29/19 [History Last Taken Unknown] meclizine 25 mg tablet 25 mg PO TID PRN 11/29/19 [History Last Taken 01/09/21] mometasone 0.1 % topical cream 1 applic TOPICAL BID PRN g 11/29/19 [History Last Taken Unknown] rabeprazole 20 mg tablet,delayed release 20 mg PO DAILY 11/29/19 [History Last Taken 01/09/21] albuterol sulfate 90 mcg/actuation aerosol inhaler 1 puff INHALATION Q6H PRN g 01/25/20 [History Last Taken Unknown] cholecalciferol (vitamin D3) 50 mcg (2,000 unit) tablet 50 mcg PO DAILY 01/25/20 [History Last Taken 01/09/21] azelastine 205.5 mcg (0.15 %) nasal spray 2 spray INTRANASAL DAILY PRN 04/17/20 [History Last Taken Unknown] levothyroxine 75 mcg tablet 88 mcg PO DAILY tab 10/11/20 [History Last Taken 01/09/21] montelukast 10 mg tablet 10 mg PO DAILY 10/11/20 [History Last Taken 01/09/21] rosuvastatin 20 mg tablet 20 mg PO DAILY 10/11/20 [History Last Taken 01/09/21] cetirizine 10 mg tablet 10 mg PO DAILY PRN 12/05/20 [History Last Taken 01/09/21] sertraline 100 mg tablet 100 mg PO DAILY tab 12/05/20 [History Last Taken Unknown] budesonide 1 mg/2 mL suspension for nebulization 1 mg INHALATION BID #60 ml 01/09/21 [Rx Last Taken Unknown] formoterol fumarate [Perforomist] 20 mcg INHALATION BID 01/10/21 [History Last Taken 01/09/21] amoxicillin-pot clavulanate [Augmentin] 1 tab PO Q12H #14 tab 01/11/21 [Rx Last Taken Unknown] lidocaine HCl [Lidocaine Viscous] 5 ml MUCOUS MEMBRANE Q6H PRN #100 ml 01/13/21 [Rx Last Taken Unknown] nystatin 500,000 unit PO Q6H 7 Days #140 ml 01/13/21 [Rx Last Taken Unknown] Allergy/AdvReac Type Severity Reaction Status Date / Time adhesive tape Allergy Unknown unknown Verified 01/13/21 11:38 influenza virus vaccine, Allergy Unknown unknown Verified 01/13/21 11:38 specific neomycin Allergy Unknown unknown Verified 01/13/21 11:38 [From Neosporin ([id number])] bacitracin Allergy Rash Verified 01/13/21 11:38 [From Neosporin ([id number])] bacitracin zinc Allergy Rash Verified 01/13/21 11:38 [From Neosporin ([id number])] neomycin sulfate Allergy Rash Verified 01/13/21 11:38 [From Neosporin ([id number])] polymyxin B Allergy Rash Verified 01/13/21 11:38 [From Neosporin ([id number])] aspirin AdvReac Other Verified 01/13/21 11:38 codeine AdvReac Other Verified 01/13/21 11:38 feathers AdvReac swelling, Verified 01/13/21 11:38 itching morphine AdvReac Other Verified 01/13/21 11:38 Family History Father Alcoholism CVA (cerebral vascular accident) Mother CVA (cerebral vascular accident) Brother CVA (cerebral vascular accident) Sister CVA (cerebral vascular accident) Thyroid disorder Kidney disease Surgical History H/O: hysterectomy History of bunionectomy History of cardiac catheterization (~07/08/19) History of cholecystectomy History of laminectomy Social History Smoking Status: Never smoker alcohol intake: current Alcohol type: beer and hard liquor substance use type: does not use caffeine: No what type of physical activity do you participate in: none ROS ROS ED Constitutional Constitutional ED: Denies chills or fever(s) Eyes Eyes: Denies blurry vision or change in vision ENT ENT ED: Reports sore throat; Denies ear pain or rhinorrhea Cardiovascular Cardiovascular: Denies chest pain Respiratory/Chest Respiratory/Chest: Denies cough or dyspnea Gastrointestinal Gastrointestinal: Denies abdominal pain, nausea or vomiting Musculoskeletal Musculoskeletal: Denies myalgias Integumentary Denies rash Neurologic Neurologic: Denies headache(s) EXAM Physical Exam Const Vital Signs: 01/13/21 11:35 Temperature 96.2 F L Temperature Source Temporal Pulse Rate 71 Respiratory Rate 19 H Blood Pressure 130/45 H Blood Pressure Mean 73 Pulse Ox 97 Oxygen Delivery Method Room Air Positive well nourished and well developed General Appearance ED: well developed HEENT Reports TM's clear and moist mucous membranes HEENT Narrative: Erythema of the hard palate and pharynx with white spots present. No edema of the oropharynx appreciated. Uvula is midline. Normal phonation. Tympanic Membrane ED: Yes TM's clear Eyes PERRL and EOMs intact bilaterally Neck no lymphadenopathy and supple General: Negative for tenderness Chest Wall inspection of chest normal Resp normal respiratory effort and clear to auscultation bilaterally Cardio regular rate and regular rhythm Extremity normal to inspection Neuro oriented x3 and CN's II-XII intact bilaterally Sensorium / Orientation: alert Psych mental status grossly normal Skin no rashes or lesions noted MDM MDM MDM Narrative Medical decision making narrative: Patient is presenting with sore throat. Physical exam is consistent with thrush. This is likely caused by recent steroids and antibiotics for epiglottitis. She is given viscous lidocaine in the ER for pain control and a prescription for nystatin as well as viscous lidocaine. She instructed to take ibuprofen as needed for pain. She not appear to have any airway compromise. Will follow up with ENT. Counseled return precautions. Discharge Plan Triage Chief Complaint: Sore Throat Other Complaint: Other, Pain/Inj ED Provider: Lynda Mane Dx/Rx/DC Orders Clinical Impression: Candidiasis of mouth Instructions: Dasha Infection: Thrush Prescriptions: New nystatin 100,000 unit/mL suspension 500,000 unit PO Q6H 7 Days Qty: 140 RF: 0 lidocaine HCl [Lidocaine Viscous] 2 % solution 5 ml mucous membrane Q6H PRN (Reason: pain) Qty: 100 RF: 0 No Action albuterol sulfate [Ventolin HFA] 90 mcg/actuation HFA aerosol inhaler 1 puff INHALATION Q6H PRN (Reason: breathing) RF: 0 meclizine 25 mg tablet 25 mg PO TID PRN (Reason: dizziness) RF: 0 rabeprazole 20 mg tablet,delayed release (DR/EC) 20 mg PO DAILY RF: 0 mometasone 0.1 % cream 1 applic TOPICAL BID PRN (Reason: rosacea) RF: 0 clindamycin phosphate 1 % gel 1 applic TOPICAL BID RF: 0 levothyroxine [Synthroid] 75 mcg tablet 88 mcg PO DAILY RF: 0 sertraline 100 mg tablet 100 mg PO DAILY RF: 0 cholecalciferol (vitamin D3) 50 mcg (2,000 unit) tablet 50 mcg PO DAILY RF: 0 azelastine 0.15 % (205.5 mcg) spray,non-aerosol 2 spray INTRANASAL DAILY PRN (Reason: breathing) RF: 0 cetirizine 10 mg tablet 10 mg PO DAILY PRN (Reason: allergies\) RF: 0 rosuvastatin 20 mg tablet 20 mg PO DAILY RF: 0 montelukast [Singulair] 10 mg tablet 10 mg PO DAILY RF: 0 budesonide 1 mg/2 mL suspension for nebulization 1 mg inhalation BID Qty: 60 RF: 6 lactase 3,000 UNIT tablet 1 tab PO PRN PRN (Reason: unk) RF: 0 estradiol 0.5 MG tablet 0.5 mg PO DAILY RF: 0 calcium carbonate-vitamin D3 1 EACH tablet 1 ea PO DAILY RF: 0 formoterol fumarate [Perforomist] 20 mcg/2 mL solution for nebulization 20 mcg INHALATION BID RF: 0 amoxicillin-pot clavulanate [Augmentin] 875-125 mg tablet 1 tab PO Q12H Qty: 14 RF: 0 Primary Care Provider: Lindy Fonseca Referrals: Lindy Fonseca MD [Primary Care Provider] - Shiva Cunningham MD [STAFF PHYSICIAN] - 1-2 Days if not improving Disposition Disposition: Home, Self Care Discharge Date/Time: 01/13/21 13:17
== END 2021-01-13 13:17 | disposition home or self-care (01) ==
PROVIDERS: Emergency Provider Emergency Medicine; PCP Internal Medicine
DX: B37.0 Candidal stomatitis (principal); E03.9 Hypothyroidism, unspecified; E78.2 Mixed hyperlipidemia; Z79.899 Other long term (current) drug therapy
CPT/HCPCS: 99283

== ENCOUNTER 2021-01-25 13:00 | Outpatient (RCR) | payer MEDICARE, OTHER, SELFPAY ==
[2020-12-03 10:06] VITALS: BMI 36.2
[2020-12-05 15:49] VITALS: BMI 36.1
--- NOTE | 2020-12-18 15:38 | HP.PTEVAL_ITS ---
Patient's Visit Information LISBET RIVERA is a 80 year old F referred to Physical Therapy by Dr. Lindy Fonseca MD with a diagnosis of LEFT SHOULDER PAIN. Date of Evaluation: 12/18/20 Physical Therapist: Adria Cartwright, PT, Cert MDT, OCS - Visit Plan Frequency: 2x /Week Duration: 4 Weeks Plan: PT INTERVENTIIONS RTC/SCAPULAR STRENGTHENING,POSTURAL EX'S .MANUAL THERAP G-H JOINT GR 2-3,PROM,AAROM AND MODALTIES - Subjective This 80 y/o female presents to physical therapy with right shoulder pain. Patient has had shoulder pain ~ 8 weeks . Patient putting up pole for flag caused left shoulder pain. Patient pain described as sharp pain and ache. Location of pain located anterior and lateral deltoid. Aggravating factors lifting, OH with affecting self hygine and function. reaching behind back. Left shoulder pain affects sleeping. Denies paresthesia/tingling. Patient seen massage therapist and chiropractor didn't help. Patient did x-ray-. Patient was provided with flexural and prednisone. Patient pain affects quality of live and function. Pain level increase 9/10. VOCATION: retired. SOCIAL: - Pain Left Shoulder Pain Intensity (Out of 10): 7 Pain Intensity Range: 10 - Objective POSTURE: rounded shoulders head forward. PALAPTION: tender bicep long head. NEURO: intact, denies paresthesia/tingling. AROM: shoulder flexion 110 degrees, abduction 95 ,ER 80 degrees IR L1. PROM: shoulder flexion 140 degrees, abduction 135 degrees, ER 85 degrees. CAPSULAR RESTRICTION: mild tight all planes. MMT: infraspinatus 4-/5,supraspinatous 4-/5,subscapularis 4/5,deltoid 4-/5 mild pain - Special Tests L Shoulder External Rotation Lag Test - RC Tear: Negative L Shoulder Supine Impingement Test - RC Tear: Negative L Shoulder Lift Off Test - Subscapular Tear: Negative L Shoulder Drop Sign - IS Test: Positive L Shoulder Empty Can - SS: Positive L Shoulder Belly Press - SupScap: Negative L Shoulder Neer - Impingement: Positive L Shoulder Maldonado Franki - Impingement: Positive L Shoulder Apprehension/Relocaton - SLAP: Negative L Shoulder Shrug Sign - OA/Adhesive Capsulitis: Negative - Balance/Special Test Scores Quick DASH Score: 52.2725 - Goals Goal 1:: I with HEP Goal 2:: Patient decrease left shoulder pain by 50% or> to improve function and ADLS' Goal Time Frame: 4-6 Weeks Goal 3:: Patient increase AROM shoulder flexion 145 degrees, abduction 140 in scapation, ER 90 to improve vfunction with ADLS Goal Time Frame: 4-6 Weeks Goal 4:: Patient to increase strength RTC 4/5 and deltoid 4/5 to improve function with ADL's Goal Time Frame: 4-6 Weeks Goal 5:: Patient to improve quick dash by 5 points or > to improve function Goal Time Frame: 4-6 Weeks - Rehabilitation Potential Physical Therapy Diagnosis: This left shoulder pain with impingement syndrome with tendinosis along with capsular restriction with decrease ROM ,strength impairs function and houswork tasks thus benefit from skilled PT Rehabilitation Potential: Good - Anticipated Interventions Patient/Client Instruction: Educate patient on: Condition For the Purpose of:: To decrease pain, To increase ROM, To improve muscle performance and motor function, To improve ability to perform ADL's, To increase tolerance to activity/condition/position, To improve performance and independence with ADL's, To improve ability of physical actions for home/community/work/leisure, To improve health of tissue, To decrease soft tissue restriction, To increase flexibility/ROM, To assume or resume ADL's, To reduce risk of recurrence, To improve health and function, To improve tolerance to ADL's Therapeutic Exercise to Include: Strength training, Postural training, Passive ROM, Active ROM, Scapular Strength/Stabilization Comment: RTC For the Purpose of:: To decrease pain, To increase ROM, To improve muscle performance and motor function, To improve ability to perform ADL's, To increase tolerance to activity/condition/position, To improve ability of physical actions for home/community/work/leisure, To improve health of tissue, To decrease soft tissue restriction, To increase flexibility/ROM, To reduce risk of recurrence, To prevent re-injury, To improve ability to perform tasks related to life ma nagement Manual Therapy Techniques to Include: Mobilization, Passive ROM Comment: G-H For the Purpose of:: To decrease pain, To increase ROM, To improve health of tissue, To decrease soft tissue restriction, To increase flexibility/ROM TENS: Yes IF ES: Yes Cryotherapy (ice pack, ice massage): Yes Thermo therapy (hot pack): Yes Ultrasound (thermal/non thermal): Yes For the Purpose of:: To decrease pain, To increase ROM, To improve muscle performance and motor function, To increase tolerance to activity/condition/position, To improve performance and independence with ADL's, To improve ability of physical actions for home/community/work/leisure, To improve health of tissue, To decrease soft tissue restriction, To increase flexibility/ROM, To reduce risk of recurrence, To improve health and function, To improve tolerance to ADL's Thank you for the opportunity to evaluate your patient. For Medicare and Medicare HMO plans, please review the plan of care and approve it. It will need to be FAXED BACK to us at [phone] for Medicare purposes. For Medicare only, by signing this I certify the plan of care. Please let me know if there are questions or concerns regarding this plan of care. Physician Signature: Date:
--- NOTE | 2021-01-25 13:29 | HP.PTDCSUM ---
It has been my pleasure to treat LISBET RIVERA referred by Dr. Lindy Fonseca MD, with the diagnosis of LEFT SHOULDER PAIN for a total of 7 visit(s). Discharge Date: 01/25/21 Please see the following information for a summary of their discharge status. Subjective: Doing well .. no pain Left Shoulder Pain Intensity (Out of 10): 0 % Improvement: 100 Objective/Function: POSTURE: WFL. AROM: FLEXION 150 DEGREES,ABDUCTION 160 DEGRRES,ER 90 IR T9. MMT:4/5 RTC,DELTOID 4/5 Goal 1:: I with HEP Goal Progress: Goal Met Goal 2:: Patient decrease left shoulder pain by 50% or> to improve function and ADLS' Goal Progress: Goal Met Goal 3:: Patient increase AROM shoulder flexion 145 degrees, abduction 140 in scapation, ER 90 to improve vfunction with ADLS Goal Progress: Goal Met Goal 4:: Patient to increase strength RTC 4/5 and deltoid 4/5 to improve function with ADL's Goal Progress: Goal Met Goal 5:: Patient to improve quick dash by 5 points or > to improve function Goal Progress: Goal Met Plan: D/C TO HEP If there are questions or concerns regarding this patient's physical therapy, please feel free to call me at [phone]. Thank you for the referral of this patient. Sincerely, Adria Cartwright PT, Cert MDT, OCS Balance/Gait/Functional tests - Balance/Special Test Scores Quick DASH Score: 2.2725
== END 2021-01-25 19:00 | disposition home or self-care (01) ==
LOC: PT 13:00
PROVIDERS: PCP Internal Medicine; Referring Provider Internal Medicine; Visit Provider Internal Medicine
DX: M25.512 Pain in left shoulder (principal)
CPT/HCPCS: 97110; 97162

== ENCOUNTER 2021-11-28 12:00 | Outpatient (RCR) | payer MEDICARE, OTHER, SELFPAY ==
--- NOTE | 2021-10-31 13:11 | HP.PTEVAL_ITS ---
Patient's Visit Information LISBET RIVERA is a 81 year old F referred to Physical Therapy by FER Weeks with a diagnosis of LOW BACK PAIN RIGHT LEG RADICULOPATHY. Date of Evaluation: 10/31/21 Physical Therapist: Adria Cartwright, PT, Cert MDT, OCS - Visit Plan Frequency: 2x /Week Duration: 6 Weeks Plan: PT INTERVETIONS GRADED DLS ,POSTURAL EX'S, LE FLEXABLITY , ACTIVITY MODIFICATIONAND MODALTIES PRN - Subjective This 81 y/o female presents to physical therapy with low back pain with right leg radiculopathy. Patient has had low back pain several years but back pain has been getting worse . 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 Patient plans to have surgery Feb 2022 in [place]. Patient has tried pain management with 2 injections which did not help. Patient did do therapy with back in [place]. Patient located symmetrical lumbar L > R and lateral leg with sharp /burning pain. Patient c/o paresthesia/tingling . Patient was provided extra strength teylonal. Aggravating standing/walking ~ 5 mins, shopping use riding cart scooter, bending, lifting difficulty . Alleviating teylonal. Coughing/sneezing + Bowel/bladder-. Patient has difficulty sleeping. Patient pain affects QOL and function . Patient lives in [place] Feb -October . Patient cervical surgery August 19 2021. SOCIAL: . VOCATION: retired - Pain Bilateral Back Pain Intensity (Out of 10): 8 Pain Intensity Range: 10 Right Lower Extremity Pain Intensity (Out of 10): 5 Pain Intensity Range: 10 - Objective POSTURE: mild forward posture. SYMMTRIES: symmetries. GAIT: reciprocal pattern. PALPATION: tender SI /LS. NEURO: c/o paresthesia/tingling and burning in leg , reflexes L3-4,L4-L5,L5-S1 1/3. MMT: quads/hams 4/5 ,hip flexion 4- /5,ankle 4/5. LUMBAR ROM: flexion mod loss ,extension mod loss, side glides min/mod - Special Tests L/S Slump test left side: Negative L/S Slump test right side: Negative L/S Left Straight Leg Raise: Negative L/S Right Straight Leg Raise: Negative Lumbar Standing: Flexion - Mechanical Response: No effect Lumbar Standing: Flexion - Symptoms During Testing: Increases Lumbar Standing: Flexion - Symptoms After Testing: No worse Lumbar Standing: Extension - Mechanical Response: No effect Lumbar Standing: Extension - Symptoms During Testing: Increases Lumbar Standing: Extension - Symptoms After Testing: No worse Lumbar Standing: Right Side Glides - Mechanical Response: No effect Lumbar Standing: Right Side [place] - Symptoms During Testing: Increases Lumbar Standing: Right Side [place] - Symptoms After Testing: No worse Lumbar Standing: Left Side [place] - Mechanical Response: No effect Lumbar Standing: Left Side [place] - Symptoms During Testing: Increases Lumbar Standing: Left Side [place] - Symptoms After Testing: No worse - Balance/Special Test Scores Oswestry Low Back Score: 29 - Goals Goal 1:: This patient to be I with HEP Goal Time Frame: 4-6 Weeks Goal 2:: Patient to improve posture for ADLS' Goal Time Frame: 4-6 Weeks Goal 3:: Patient to demonstrate 40% improvement with decrease pain improve function. Goal Time Frame: 4-6 Weeks Goal 4:: Patient to improve lumbar ROM for function of recovery to tie shoes Goal Time Frame: 4-6 Weeks Goal 5:: Patient to improve back oswestry score by 5 points to improve QOL and function Goal Time Frame: 4-6 Weeks - Rehabilitation Potential Physical Therapy Diagnosis: This patient has low back pain with radicular symptoms right leg due to stenosis and HNP per patient with pain with position, motion testing ,. worse with bending and unable to lift due to pain ,patient has some weakness in hip thus will benefit from skilled PT Rehabilitation Potential: Good - Anticipated Interventions Patient/Client Instruction: Educate patient on: Condition, Plan of Care For the Purpose of:: To decrease pain, To increase ROM, To improve muscle performance and motor function, To improve ability to perform ADL's, To increase tolerance to activity/condition/position, To improve ability of physical actions for home/community/work/leisure, To improve health of tissue, To decrease soft tissue restriction, To increase flexibility/ROM, To prevent re-injury, To improve tolerance to ADL's Therapeutic Exercise to Include: Strength training, Body mechanics, Postural training, Flexibilty training, Dynamic Lumbar Stabilization, Ai Exercises For the Purpose of:: To decrease pain, To increase ROM, To improve muscle performance and motor function, To improve ability to perform ADL's, To increase tolerance to activity/condition/position, To improve ability of physical actions for home/community/work/leisure, To improve health of tissue, To prevent re- injury TENS: Yes IF ES: Yes Cryotherapy (ice pack, ice massage): Yes Thermo therapy (hot pack): Yes Ultrasound (thermal/non thermal): Yes For the Purpose of:: To decrease pain, To increase ROM, To improve nutrient delivery to tissue, To increase oxygenation perfusion, To improve health of tissue, To decrease soft tissue restriction Thank you for the opportunity to evaluate your patient. For Medicare and Medicare HMO plans, please review the plan of care and approve it. It will need to be FAXED BACK to us at [phone] for Medicare purposes. For Medicare only, by signing this I certify the plan of care. Please let me know if there are questions or concerns regarding this plan of care. Physician Signature: Date:
--- NOTE | 2021-11-28 12:16 | HP.PTDCSUM ---
It has been my pleasure to treat LISBET RIVERA referred by FER Weeks, with the diagnosis of LOW BACK PAIN RIGHT LEG RADICULOPATHY for a total of 8 visit(s). Discharge Date: 11/28/21 Please see the following information for a summary of their discharge status. Subjective: Patient is doing better ..able to do ex's. Plan to see DR angely Boyd for 2nd opinion. Standing can be aggravating factors ,bending and then lifting. ` Bilateral Back Pain Intensity (Out of 10): 4 Right Lower Extremity Pain Intensity (Out of 10): 4 % Improvement: 70 Objective/Function: POSTURE: mild forward. GAIT: reciprocal pattern mild forward posture. MMT: 4/5 quads/hams ,4-/5 hip flexion and ankle 5/5. LUMBAR ROM: MOD LOSS ,MOD LOSS EXTENSION Goal 1:: This patient to be I with HEP Goal Progress: Goal Met Goal 2:: Patient to improve posture for ADLS' Goal Progress: Goal Met Goal 3:: Patient to demonstrate 40% improvement with decrease pain improve function. Goal 4:: Patient to improve lumbar ROM for function of recovery to tie shoes Goal Progress: Progressing Goal 5:: Patient to improve back oswestry score by 5 points to improve QOL and function Goal Progress: Goal Met Plan: D/C HEP Discharge Comments: HEP If there are questions or concerns regarding this patient's physical therapy, please feel free to call me at [phone]. Thank you for the referral of this patient. Sincerely, Adria Cartwright, PT, Cert MDT, OCS Balance/Gait/Functional tests - Balance/Special Test Scores Oswestry Low Back Score: 16
== END 2021-11-28 19:00 | disposition home or self-care (01) ==
LOC: PT 12:00
PROVIDERS: PCP Internal Medicine; Visit Provider Physician Assistant
DX: M54.50 Low back pain, unspecified (principal); M54.10 Radiculopathy, site unspecified
CPT/HCPCS: 97110; 97162; 97530

== ENCOUNTER → 2022-12-10 | Outpatient (CLI) | payer MEDICARE, SELFPAY | END | disposition home or self-care (01) | PROVIDERS: PCP Internal Medicine; Referring Provider Otolaryngology Otolaryngology/Facial Plastic Surgery; Visit Provider Otolaryngology Otolaryngology/Facial Plastic Surgery | DX: J02.9 Acute pharyngitis, unspecified (principal) | CPT/HCPCS: 87070 ==

== ENCOUNTER → 2023-09-16 | Outpatient (CLI) | payer MEDICARE, SELFPAY ==
[2023-09-16 15:09] LABS: Absolute Lymphocyte Count 2.01 X10^3/uL (0.83-4.51); Absolute Neutrophil Count 7.2 X10^3/uL (2.0-7.7); Basophil# 0.03 X10^3/uL; Basophil% 0.3 % (0-1); Eosinophil# 0.11 X10^3/uL; Eosinophils% 1.1 % (0-5); Hematocrit 41.9 % (37-47); Hemoglobin 13.4 g/dL (12.0-15.0); Lymphocyte # 2.01 X10^3/ul (0.83-4.51); Mean Corpuscular Hgb 29.9 pg (27.0-32.0); Mean Corpuscular Volume 93.5 fL (81-99); Mean Platelet Vol. 9.2 fl (6.2-12.0); Monocyte# 0.61 X10^3/uL; Monocyte% 6.1 % (0-10); NRBC Flagged by Analyzer 0 % (0-5); Neutrophil # 7.24 X10^3/uL (2.7-7.7); Neutrophil % 71.9 % (47-70); Platelet Count 305 K/mm3 (150-450); RBC Distribution Width CV 13.2 % (11.6-14.6); RBC Distribution Width SD 45.4 fl (35.1-43.9); Red Blood Count 4.48 M/mm3 (4.2-5.4); White Blood Count 10.1 K/mm3 (4.4-11.0)
[2023-09-16 15:56] LABS: ALB/GLOB Ratio 1.1 RATIO (0.9-2.4); AST(SGOT) 21 U/L (15-37); Alanine Aminotransfer ALT/SGPT 27 U/L (13-56); Albumin, Serum 3.4 g/dL (3.2-5.0); Alkaline Phosphatase 59 U/L (45-117); Anion Gap 4 (5-15); BUN 21 mg/dL (7-18); BUN/Creat Ratio 18.4 RATIO (10-20); Calcium,Total 9.1 mg/dL (8.5-10.1); Chloride 106 mmol/L (98-107); Creatinine, Serum 1.14 mg/dL (0.55-1.02); EST Glomerular Filtration Rate 48 mL/min (>60); Est Glom Filt Rate - Afr Amer 58 mL/min (>60); Globulin 3.1 g/dL (2.2-4.2); Glucose 116 mg/dL (74-106); Potassium 4.7 mmol/L (3.5-5.1); Protein, Total 6.5 g/dL (6.4-8.2); Sodium Level 138 mmol/L (136-145)
== END | disposition home or self-care (01) ==
LOC: BIMLAB 13:29
PROVIDERS: PCP Internal Medicine; Visit Provider Internal Medicine
DX: I10 Essential (primary) hypertension (principal); E03.9 Hypothyroidism, unspecified
CPT/HCPCS: 36415; 80053; 85025

== ENCOUNTER → 2023-09-17 | Outpatient (CLI) | payer MEDICARE, SELFPAY ==
--- NOTE | 2023-09-17 11:23 | RAD_ITS ---
STUDY: X-RAY CHEST REASON FOR EXAM: Female, 83 years old. Cough. TECHNIQUE: Frontal and lateral views of the chest. COMPARISON: December 04, 2014 FINDINGS: Stable mild hyperinflation. There is no demonstrated pleural abnormality. Normal size heart. Normal mediastinum and lyle. Normal visualized pulmonary arteries. Normal visualized aortic arch and descending thoracic aorta. Thoracic scoliosis unchanged. Normal visualized ribs, clavicles, and shoulders. No abnormality of the visualized soft tissue structures of the upper abdomen. RAD/Chest PA and Lateral IMPRESSION: Stable chest with no acute or active cardiopulmonary disease. Electronically Signed: Nick Dhillon MD at 11:44 EDT ,
== END | disposition home or self-care (01) ==
LOC: MTRAD 11:23
PROVIDERS: PCP Internal Medicine; Referring Provider Internal Medicine; Visit Provider Internal Medicine
DX: R05.9 Cough, unspecified (principal)
CPT/HCPCS: 71046

== ENCOUNTER → 2023-10-08 | Outpatient (CLI) | payer MEDICARE, SELFPAY ==
--- NOTE | 2023-10-08 12:46 | ART_ITS ---
Reason For Study: PAD Procedure A bilateral lower extremity continuous wave Doppler with analog waveform analysis and ankle brachial indexes. Left Segmental Pressures Left brachial= 131mmHg. Left posterior tibial artery = 181mmHg. Left dorsalis pedis artery = 161mmHg. Left digit = 87 mmHg. Right Segmental Pressures Right brachial= 133mmHg. Right posterior tibial artery = 145mmHg. Right dorsalis pedis artery = 153mmHg. Right digit = 92 mmHg. Indices The right ankle brachial index by the posterior tibial artery is 1.09. The right ankle brachial index by the dorsalis pedis is 1.15. The right digital-brachial index is 0.69. The left ankle brachial index by the posterior tibial artery is 1.36. The left ankle brachial index by the dorsalis pedis is 1.21. The left digital-brachial index is 0.65. VL/Ankle Brachial Index Interpretation Summary Right GRIS 1.15, normal. Doppler/PVR waveforms of the right ankle normal at rest . TBI diminished, pedal/digit disease vs spasm. Left GRIS 1.36, normal. Doppler/PVR waveforms of the left ankle normal at rest. TBI diminished, pedal/Digi disease vs spasm. Ordering Physician: Lindy Fonseca Referring Physician: Lindy Fonseca Performed By: Brad Castellanos RVT and Student
== END | disposition home or self-care (01) ==
PROVIDERS: PCP Internal Medicine; Referring Provider Internal Medicine; Visit Provider Internal Medicine
DX: I73.9 Peripheral vascular disease, unspecified (principal)
CPT/HCPCS: 93922

== ENCOUNTER → 2023-10-19 | Outpatient (CLI) | payer MEDICARE, SELFPAY ==
--- NOTE | 2023-10-19 12:30 | MRI_ITS ---
STUDY: MRI LUMBAR SPINE WITHOUT CONTRAST REASON FOR EXAM: Female, 83 years old. Pain, L lower back. TECHNIQUE: Standardized fat and water weighted pulse sequences were obtained in the sagittal and axial planes. COMPARISON: Lumbar spine radiographs 10/08/2023. FINDINGS: T10-T11: (Sagittal only). Normal endplates. Minimal disc space height narrowing. No ventral extradural defect. Normal central canal and bilateral intervertebral neural foramina. T11-T12: Normal endplates. Normal disc height, hydration and morphology. Normal facet joints. Normal central canal and bilateral lateral recesses. Normal bilateral intervertebral neural foramina. T12-L1: Normal endplates. Normal disc height, hydration and morphology. Normal bilateral facet joints. Normal central canal and bilateral lateral recesses. Normal bilateral intervertebral neural foramina. Normal lumbar lordosis. Moderate dextroscoliosis of the lumbar spine. Normal conus medullaris that terminates at the upper L1 vertebral body level. L1-2: Normal endplates. Right metallic rods and right L2 pedicular screw causing signal distortion artifacts. Normal disc height. No ventral extradural defect. No significant facet arthropathy. Mild dorsal epidural lipomatosis. Normal central canal and bilateral lateral recesses. Normal bilateral intervertebral neural foramina. L2-3: Normal endplates. Mild disc space height narrowing. Right metallic rods and right pedicular screws causing signal distortion artifacts. Mild disc space height narrowing. Mild ventral extradural defect is suspicious for small posterior midline and caudal disc protrusion. Normal central canal. Mild stenosis of the left lateral recess. Normal right lateral recess. Normal bilateral intervertebral neural foramina. L3-4: Moderate type II degenerative vertebral marrow fat infiltration underneath the vertebral endplates. Pronounced disc space height narrowing. Right metallic mani and right pedicular screw causing signal distortion artifacts. Metallic rods and L4 pedicular screws causing signal distortion artifacts. Right hemilaminectomy causing posterior bulging of the thecal sac. Normal central canal and bilateral lateral recesses. Mild stenosis of the left intervertebral neural foramen. Normal right intervertebral neural foramen. L4-5: Disc implant inside the disc space. Metallic rods and pedicular screws causing signal distortion artifacts. Postsurgical absence of the spinous processes and lamina. Normal central canal and bilateral lateral recesses. Right intervertebral neural foramen is obscured by signal distortion artifacts. Normal left intervertebral neural foramen. L5-S1: Normal endplates. Normal disc height. Metallic rods and pedicular screws causing signal distortion artifacts. Postsurgical absence of the spinous processes and lamina. Normal central canal and bilateral lateral recesses. Normal bilateral intervertebral neural foramina. Normal visualized sacral ala. Normal visualized paraspinous soft tissue structures. MRI/Spine Lumbar (Routine) IMPRESSION: 1. Midline ventral extradural defect at L2-L3 disc space level is suspicious for small posterior midline and caudal disc protrusion. No associated central canal stenosis or nerve root displacement. 2. No MRI evidence of suspicious lumbar disc protrusion or nerve root displacement. Electronically Signed: Crow Jacobson MD at 13:41 EDT ,
== END | disposition home or self-care (01) ==
PROVIDERS: PCP Internal Medicine; Referring Provider Orthopaedic Surgery Orthopaedic Surgery of the Spine; Visit Provider Orthopaedic Surgery Orthopaedic Surgery of the Spine
DX: M54.50 Low back pain, unspecified (principal)
CPT/HCPCS: 72148

== ENCOUNTER → 2023-11-10 | Outpatient (CLI) | payer MEDICARE, SELFPAY ==
--- NOTE | 2023-11-10 18:36 | CT_ITS ---
INDICATION: Pain EXAMINATION: CT LUMBAR SPINE - CT Spine Lumbar W/O Contrast Injection TECHNIQUE: Helically acquired images were obtained of the lumbar spine. 2D reformats were reviewed. A radiation dose optimization technique was used for this scan. The protocol utilizes one or more of the following dose reduction techniques: automated exposure control, adjustment of mA and/or kV according to patient size,and/or use of iterative reconstruction technique. IV Contrast dosage and agent: None. RADIATION DOSAGE (If Supplied By Facility): CTDIvol = ( 21.19 ) mGy, DLP = ( 764.25 ) mGycm COMPARISON: MR Lumbar Spine, Oct 19 2023 FINDINGS: VERTEBRAE: There is fusion extending from L2 to S1. There is loosening of the right pedicle screw at L2 . Broken screws are seen bilaterally at L5. 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 There is dextroscoliosis of the angle measures 20 degrees. DISCS and SPINAL CANAL: There is mild to moderate spinal canal narrowing at L2-3 and L3-4. There is bilateral laminectomy at L4 and L5. There is moderate narrowing of the neuroforamina bilaterally at L3-4. There is moderate narrowing of the left neural foramen at L2-3 . VISUALIZED ABDOMEN: Visualized abdominal aorta is not dilated. There is no retroperitoneal adenopathy. CT/Spine Lumbar without Contrast IMPRESSION: There is mild to moderate spinal canal narrowing at L2-3 and L3-4. There is loosening of the right pedicle screw at L2. Electronically Signed: Gareth Hernandez MD at 8:20 EDT ,
== END | disposition home or self-care (01) ==
LOC: CT 18:36
PROVIDERS: PCP Internal Medicine; Referring Provider Orthopaedic Surgery Orthopaedic Surgery of the Spine; Visit Provider Orthopaedic Surgery Orthopaedic Surgery of the Spine
DX: S32.009K Unspecified fracture of unspecified lumbar vertebra, subsequent encounter for fracture with nonunion (principal)
CPT/HCPCS: 72131

== ENCOUNTER 2023-11-11 14:00 | Outpatient (RCR) | payer MEDICARE, SELFPAY ==
--- NOTE | 2023-10-14 19:12 | HP.PTEVAL_ITS ---
Patient's Visit Information Visit Information Visit Information: LISBET RIVERA is a 83 year old F referred to Physical Therapy by Dr. Trey Cortez MD with a diagnosis of Lumbar Radic. Date of Evaluation: 10/14/23 Physical Therapist: MIKEL Sepulveda Visit Plan Frequency: 2x /Week Duration: 2 Months Plan: 2X/ week for 4 weeks for neutral spine core stability, trunk stretches, gait training with HEP HEP: gentle RFIS, LTR and PT Subjective Subjective: Pt reports that she has scoliosis and she thinks that it is pinching a nerve. When she moves different ways and she does not know which way she will get pinching pain. She went to pain management yesterday and she had a shot and it is making her sweat. It has helped but has not made it go away. They did x- rays. The MRI is next week. She has pain in her lower back and over to her L side. She has some pain sitting here (5/10) and describes it is an ache and going from standing to sitting makes it worse. This has been over a month now. She us able to sleep ok at night and laying down will help relieve the pain. Standing and sitting are the worst. Once she finds a comfortable position she just wants to sit there. She takes meloxicam for arthritis. She had a fusion L4-S1 in 2001 and then the two above that was fused as well. Pain back pain: Pain Intensity (Out of 10): 5 Objective Objective: Gait: walks with flexed posture with decrease stride length and increase antalgic gait. Had pt walk with a rollator and she was able to walk much better with less pain Trunk AROM: flex 50%, Ext not even to neutral, SB B 20 LE MMT B hip flex, knee ext, knee flex all 4/5 Pt had increase pain with LTR to the R but eased the more we did Pt had increase pain with a bridge but got a little easier the more she did RFIS X 10 felt a good stretch Balance/Special Test Scores Oswestry Low Back Score: 24 Goals Goal 1:: I HEP Goal Time Frame: 6-8 Weeks Goal 2:: Decrease back pain to 2/10 with ADL's Goal Time Frame: 6-8 Weeks Goal 3:: Be able to walk with increase stride and not as much pain Goal Time Frame: 6-8 Weeks Goal 4:: Increase trunk AROM Goal Time Frame: 6-8 Weeks Rehabilitation Potential Rehabilitation Potential: Good Anticipated Interventions Patient/Client Instruction: Educate patient on: Condition and Plan of Care For the Purpose of:: To decrease pain, To increase ROM, To improve nutrient delivery to tissue, To improve muscle performance and motor function, To improve ability to perform ADL's, To increase tolerance to activity/condition/position, To improve performance and independence with ADL's, To decrease level of supervision to perform tasks, To improve ability of physical actions for home/community/work/leisure, To improve gait and locomotor functions, To improve health of tissue, To decrease soft tissue restriction and To increase flexibility/ROM Therapeutic Exercise to Include: Strength training, Body mechanics, Postural training, Flexibilty training, Gait and locomotor training, Neuromotor development, Active ROM, Dynamic Lumbar Stabilization and Scapular Strength/Stabilization For the Purpose of:: To decrease pain, To decrease swelling/inflammation, To increase ROM, To improve nutrient delivery to tissue, To improve muscle performance and motor function, To improve ability to perform ADL's, To improve performance and independence with ADL's, To decrease level of supervision to perform tasks, To improve ability of physical actions for home/community/work/leisure, To improve gait and locomotor functions, To improve health of tissue, To decrease soft tissue restriction and To increase flexibility/ROM Functional Training to Include: Gait training For the Purpose of:: To improve gait and locomotor functions and To improve safety with gait Text: Thank you for the opportunity to evaluate your patient. For Medicare and Medicare HMO plans, please review the plan of care and approve it. It will need to be FAXED BACK to us at [phone] for Medicare purposes. For Medicare only, by signing this I certify the plan of care. Please let me know if there are questions or concerns regarding this plan of care. Physician Signature: Date:
--- NOTE | 2023-11-11 14:19 | HP.PTDCSUM ---
Discharge Summary D/C summary: It has been my pleasure to treat LISBET RIVERA referred by Dr. Trey Cortez MD, with the diagnosis of Lumbar Radic for a total of 6 visit(s). Discharge Date: 11/11/23 Please see the following information for a summary of their discharge status. Subjective Subjective: Pt had a CATSCAN and Dr Cortez is going to operate at some point. Therapy is not helping. She is woozy today and she is on Vicodin and Tylenol. She has a bone density scan Thursday. She sees pain management on the . Pain back pain: Pain Intensity (Out of 10): 7 Overall Improvement % Improvement: 0 Objective Objective/Function: Pt is not able to walk with much longer strides and not able to bend any more than what she was. Goals Goal 1:: I HEP Goal Progress: Goal Met Goal 2:: Decrease back pain to 2/10 with ADL's Goal Progress: Not Progressing Goal 3:: Be able to walk with increase stride and not as much pain Goal Progress: Not Progressing Goal 4:: Increase trunk AROM Goal Progress: Not Progressing Plan Plan: DC PT back to . Pt is not helping much at this point. D/C Information Discharge Comments: DC PT back to d/elroy sentence: If there are questions or concerns regarding this patient's physical therapy, please feel free to call me at [phone]. Thank you for the referral of this patient. Sincerely, Barbara Torres, MPT Balance/Gait/Functional tests Balance/Special Test Scores Oswestry Low Back Score: 28 Improvement % Improvement: 0
== END 2023-11-11 19:00 | disposition home or self-care (01) ==
LOC: PT 14:00
PROVIDERS: PCP Internal Medicine; Referring Provider Orthopaedic Surgery Orthopaedic Surgery of the Spine; Visit Provider Orthopaedic Surgery Orthopaedic Surgery of the Spine
DX: M54.16 Radiculopathy, lumbar region (principal)
CPT/HCPCS: 97110; 97161; 97530

== ENCOUNTER → 2023-11-18 | Outpatient (CLI) | payer MEDICARE, SELFPAY ==
--- NOTE | 2023-11-18 15:57 | BD_ITS ---
STUDY: DUAL ENERGY X-RAY ABSORPTIOMETRY / DXA REASON FOR EXAM: Female, 83 years old. Pain TECHNIQUE: Bone Mineral Density (BMD) measurements of the left forearm and bilateral hips were obtained. COMPARISON: None. FINDINGS: Left Femur Total: g/cm2 (0.956) / T-score (0.1) / Z-score (2.4) Left Femoral Neck: g/cm2 (0.711) / T-score (-1.2) / Z-score (1.3) Right Femur Total: g/cm2 (0.974) / T-score (0.3) / Z-score (2.6) Right Femoral Neck: g/cm2 (0.734) / T-score (-1.0) / Z-score (1.5) Left Forearm: g/cm2 (0.578) / T-score (0.0) / Z-score (3.5) BD/Dexa Bone Density Study IMPRESSION: The patient is considered osteopenic as outlined below according to World [employer] Organization (WHO) criteria with a low fracture risk. Reference Information: The T-score is the number of standard deviations above or below the standard which is normal for young adults at their peak bone mineral density. The World Health Organization (WHO) interprets the T-scores as follows: Above -1 Normal bone density Between -1 and -2.5 Osteopenia Equal to / or below -2.5 Osteoporosis As a practical clinical guideline, osteopenia may be graded as follows: Mild -1 through -1.5 Moderate -1.6 through -2.0 Severe -2.1 through -2.4 The Z-score is the number of standard deviations above or below age-matched controls. A Z-score of less than -1.5 would be considered abnormal. References: 1. NIH Osteoporosis and Related Bone Diseases www osteo.org 2. International Society for Clinical Densitometry www iscd.org 3. National Osteoporosis Foundation www nof.org Electronically Signed: Josias Gamez MD at 14:03 EDT ,
== END | disposition home or self-care (01) ==
PROVIDERS: PCP Internal Medicine; Referring Provider Orthopaedic Surgery Orthopaedic Surgery of the Spine; Visit Provider Orthopaedic Surgery Orthopaedic Surgery of the Spine
DX: M81.0 Age-related osteoporosis without current pathological fracture (principal)
CPT/HCPCS: 77080

== ENCOUNTER → 2023-12-10 | Outpatient (CLI) | payer MEDICARE, SELFPAY ==
[2023-12-10 13:01] LABS: Amphetamine Urine VISTA NEGATIVE (<1000 ng/mL); Barbiturate Urine VISTA NEGATIVE (< 200 ng/mL); Benzodiazepine Urine VISTA POSITIVE (< 200 ng/mL); Cocaine Urine VISTA NEGATIVE (< 300 ng/mL); Ecstacy Urine VISTA NEGATIVE (< 500 ng/mL); Methadone Urine VISTA NEGATIVE (< 300 ng/mL); PCP Urine VISTA NEGATIVE (< 25 ng/mL); THC Urine VISTA NEGATIVE (< 50 ng/mL); Vista UDS pH Range 6
== END | disposition home or self-care (01) ==
PROVIDERS: PCP Internal Medicine; Referring Provider Anesthesiology Pain Medicine; Visit Provider Anesthesiology Pain Medicine
DX: F11.20 Opioid dependence, uncomplicated (principal)
CPT/HCPCS: 80307

== ENCOUNTER → 2023-12-18 | Outpatient (CLI) | payer MEDICARE, SELFPAY ==
[2023-12-18 16:46] LABS: Absolute Neutrophil Count 4.8 X10^3/uL (2.0-7.7); Basophil# 0.03 X10^3/uL; Basophil% 0.4 % (0-1); Eosinophil# 0.05 X10^3/uL; Eosinophils% 0.7 % (0-5); Hematocrit 38.1 % (37-47); Hemoglobin 12.4 g/dL (12.0-15.0); Lymphocyte % 23.8 % (19-41); Mean Corp Hgb Conc 32.5 g/dL (32-36); Mean Corpuscular Hgb 30.8 pg (27.0-32.0); Mean Corpuscular Volume 94.8 fL (81-99); Mean Platelet Vol. 9.5 fl (6.2-12.0); Monocyte# 0.57 X10^3/uL; NRBC Flagged by Analyzer 0 % (0-5); Neutrophil # 4.78 X10^3/uL (2.7-7.7); Neutrophil % 66.8 % (47-70); Platelet Count 221 K/mm3 (150-450); RBC Distribution Width CV 13.9 % (11.6-14.6); RBC Distribution Width SD 48.9 fl (35.1-43.9); Red Blood Count 4.02 M/mm3 (4.2-5.4); White Blood Count 7.2 K/mm3 (4.4-11.0)
[2023-12-18 17:07] LABS: ALB/GLOB Ratio 1.1 RATIO (0.9-2.4); AST(SGOT) 20 U/L (15-37); Alanine Aminotransfer ALT/SGPT 25 U/L (13-56); Albumin, Serum 3.5 g/dL (3.2-5.0); Alkaline Phosphatase 63 U/L (45-117); Anion Gap 5 (5-15); BUN 16 mg/dL (7-18); BUN/Creat Ratio 15.8 RATIO (10-20); Calcium,Total 8.5 mg/dL (8.5-10.1); Chloride 109 mmol/L (98-107); Creatinine, Serum 1.01 mg/dL (0.55-1.02); EST Glomerular Filtration Rate 55 mL/min (>60); Est Glom Filt Rate - Afr Amer 67 mL/min (>60); Globulin 3.1 g/dL (2.2-4.2); Glucose 91 mg/dL (74-106); Potassium 3.9 mmol/L (3.5-5.1); Protein, Total 6.6 g/dL (6.4-8.2); Sodium Level 141 mmol/L (136-145); Thyroid Stim Hormone (TSH) 0.54 uIU/mL (0.358-3.74)
== END | disposition home or self-care (01) ==
LOC: BIMLAB 15:05
PROVIDERS: PCP Internal Medicine; Referring Provider Internal Medicine; Visit Provider Internal Medicine
DX: I10 Essential (primary) hypertension (principal); E03.9 Hypothyroidism, unspecified
CPT/HCPCS: 36415; 80053; 84443; 85025

== ENCOUNTER 2024-01-18 16:39 | Inpatient (IN) | payer MEDICARE, SELFPAY ==
--- NOTE | 2024-01-04 12:08 | EKG12_ITS ---
Test Reason : PRE OP Blood Pressure : / mmHG Vent. Rate : 075 BPM Atrial Rate : 075 BPM P-R Int : 166 ms QRS Dur : 070 ms QT Int : 398 ms P-R-T Axes : 050 045 047 degrees QTc Int : 444 ms Sinus rhythm with Premature atrial complexes Otherwise normal ECG When compared with ECG of 05-DEC-2014 04:51, Premature atrial complexes are now Present Confirmed by Yung Nicole ([id number]), school photograph editor EDWIN GORDON ([id number]) on 01/04/2024 1:53:49 PM Referred By: Trey Cortez Confirmed By:Yung Nicole
[2024-01-04 13:18] LABS: Magnesium 2.1 mg/dL (1.6-2.6)
[2024-01-04 14:01] LABS: HIV - WCH Non-Reactive (Nonreactive); Hepatitis B Surface Antibody Non-Reactive; Hepatitis C Antibody Non-Reactive (Nonreactive)
[2024-01-06 05:07] LABS: Hepatitis A AB, Total Positive (Negative)
[2024-01-18] VITALS (15 sets, daily range): BP systolic 97–179; BP diastolic 35–131; PULSE 65–95; RESP 16–70; TEMP 35.8–36.6; O2SAT 94–100; BMI 32.8
[2024-01-18] MEDS: Lactated Ringers 1,000 ML 15 ML IV (06:07)
[2024-01-18] MEDS: Acetaminophen 500 MG Tablet 1000 MG PO ×2 (06:08→21:34)
[2024-01-18] MEDS: Magnesium 1 GM over 15 mins IV (06:08)
[2024-01-18 06:18] LABS: Bedside Glucose 168 mg/dL (74-106)
--- NOTE | 2024-01-18 06:34 | PCM.PRE.AN2 ---
ASA Classification* ASA Classification ASA Classification: 3 Assessment & Plan Anesthesia* Anesthesia Assessment Anesthesia Assessment: Discussed sedation and/or anesthesia options, risks, benefits, and alternatives with patient/parents/legal guardian/POA. Questions invited. The patient/parents/legal guardian/POA seems to understand and agrees to proceed with anesthesia plan. Reviewed the physical assessment, medical history, allergy history and patient home medications list prior to surgery/procedure/anesthetic and documented any changes. Performed airway and anesthesia risk assessments. Anesthesia Type Anesthesia Type: General (no Morphine due to allergy) Anesthesia Focused Assessment* Temperature: 97 F Pulse Rate: 80 Blood Pressure: 147/77 Respiratory Rate: 18 Pulse Ox: 97 Airway Assessment Mouth opens: >3 cm Mallampati Score: II Focused Labs Anesthesia Preop lab: CBC WBC 7.2 K/mm3 (4.4-11.0) 12/18/23 15:05 RBC 4.02 M/mm3 (4.2-5.4) L 12/18/23 15:05 Hgb 12.4 g/dL (12.0-15.0) 12/18/23 15:05 Hct 38.1 % (37-47) 12/18/23 15:05 Plt Count 221 K/mm3 (150-450) 12/18/23 15:05 CHEMISTRY Potassium 3.9 mmol/L (3.5-5.1) 12/18/23 15:05 Sodium 141 mmol/L (136-145) 12/18/23 15:05 Magnesium 2.1 mg/dL (1.6-2.6) 01/04/24 12:35 Phosphorus 3.0 mg/dL (2.5-4.9) 12/19/15 12:05 BUN 16 mg/dL (7-18) 12/18/23 15:05 Creatinine 1.01 mg/dL (0.55-1.02) 12/18/23 15:05 Glucose 91 mg/dL (74-106) 12/18/23 15:05 POC Glucose 168 mg/dL (74-106) H 01/18/24 05:49 TSH 0.54 uIU/mL (0.358-3.74) 12/18/23 15:05 COAG PT 13.8 SECONDS (11.7-14.9) 12/04/14 15:35 Pre-Assessment Diagnosis/Proposed Procedure Planned Operative Procedure(s): ANTERIOR LUMBAR FUSION L2-3 L3-4 REVISION POSTERIOR FUSION L2-3 L3-4 L4-5 L5-S1 POSS EXTENSION TO L1 AND OR PELVIS REMOVAL OF PREVIOUS HARDWARE Anesthesia History Anesthesia History - medical doctor md: Anesthesia History - medical doctor md Hx Hospitalization No 12/30/23 14:09 Any Problems With Anesthesia No 12/30/23 14:09 Cholinesterase deficiency No 12/30/23 14:09 You/Your Family Experience No 12/30/23 14:09 fever (hyperthermia) with Relationship Recent Exposure to Contagious No 01/18/24 06:09 Disease Does patient have nerve No 12/30/23 14:09 stimulator Patient instructed to have device shut off --Does patient have Pacemaker No 01/18/24 06:09 or ICD? When Was Last Pacemaker Check QUESTION #4 FULL TEXT: You/Your Family Experience fever (hyperthermia) with Anesthesia Last Oral Intake Last Oral intake: Last Oral Intake NPO since 00:00 01/18/24 06:09 Meds taken in AM with sips of Yes 01/18/24 06:09 water? Meds patient instructed to take am of surgery PONV PONV - medical doctor md: PONV - medical doctor md Female Yes 12/30/23 14:09 HX of Motion Sickness No 12/30/23 14:09 HX of N/V After Surgery No 12/30/23 14:09 Non-Smoker Yes 12/30/23 14:09 Duration of Surgery greater Yes 12/30/23 14:09 than 60 minutes Number of Risk Factors 3 12/30/23 14:09 PONV Score Moderate Risk 12/30/23 14:09 Height & Weight Height & Weight: Anesthesia: Height & Weight Height 5 ft 1 in 01/18/24 06:09 Weight: 78.653 kg 01/18/24 06:09 Body Mass Index (BMI) 32.8 01/18/24 06:09 Respiratory Assessment Respiratory Assessment - medical doctor md: Respiratory Tract Infection Hx - medical doctor md Hx Respiratory Tract Infection No 12/30/23 14:09 STOP Sleep Apnea STOP Sleep Apnea - medical doctor md: STOP Sleep Apnea - medical doctor md Hx Hypertension No 12/30/23 14:09 Hx Sleep Apnea Yes 12/30/23 14:09 CPAP Yes 12/30/23 14:09 BIPAP No 12/30/23 14:09 Do you snore loudly (louder than talking or can be heard Do you often feel tired/ fatigued/ sleepy during daytime? Has anyone observed you stop breathing during sleep? STOP Results Positive 12/30/23 14:09 QUESTION #5 FULL TEXT : Do you snore loudly (louder than talking or can be heard through closed doors)? 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 Specify any problems Hx of Preganancy in last 3 No 12/30/23 14:09 Months Nurse Filling Out Transfusion DSCHRIBER 12/30/23 14:09 & Questions: Date: 12/30/23 12/30/23 14:09 Time: 14:11 12/30/23 14:09 Patient unable to answer at this time (ie. confused, unrespo /Reproduction History /Reproductive History - medical doctor md: /Reproductive Hx- medical doctor md Hx Now No 12/30/23 14:09 Gestational Age (in weeks): EDC: Hx Hx Para Hx Section SAB No 12/30/23 14:09 Active Medications Active Medications: Current Medications Generic Name Dose Route Start Last Admin Trade Name Freq PRN Reason Stop Dose Admin Acetaminophen 1,000 mg 01/18/24 07:30 01/18/24 06:08 Acetaminophen 500 Mg Tablet PO 01/18/24 07:31 1,000 mg X1 ONE Administration Cefazolin Sodium 2 gm/ Sodium 110 mls @ 150 mls/hr 01/18/24 07:30 Chloride IV 01/18/24 08:13 PREOP ONE Magnesium Sulfate 1 gm/ 102 mls @ 408 mls/hr 01/18/24 07:30 01/18/24 06:08 Dextrose IV 01/18/24 07:44 408 mls/hr X1 ONE Administration Lactated Ringer's 1,000 mls @ 15 mls/hr 01/18/24 05:45 01/18/24 06:07 IV 15 mls/hr .Q48H GABE Administration Insulin Human Lispro 1 - 6 unit 01/18/24 07:30 Insulin Lispro 100 Unit/Ml Insuln.Pen SC 01/18/24 18:00 Q4H PRN PRN BG>/= 180, SEE PROTOCOL Protocol Sodium Chloride 5 - 15 ml 01/18/24 07:30 0.9% Nacl Peripheral Flush Adult/Peds IV UD PRN SALINE FLUSH PFSH Medical History Wears hearing aid Post-menopausal Alcohol use Arthritis Anemia High cholesterol Restless legs Back pain History of IBS Gastric reflux Non-smoker CPAP (continuous positive airway pressure) dependence Leg cramps History of pain when walking History of stress test Cardiology follow-up encounter Acute otitis externa of left ear Foreign body in right auditory canal Anxiety and depression Preoperative evaluation to rule out surgical contraindication Scabies Peripheral arterial disease Left flank pain Cough Maxillary sinusitis, acute Right shoulder pain Flu vaccine need Right knee pain Encounter for screening for COVID-19 URI (upper respiratory infection) Left shoulder pain Paroxysmal supraventricular tachycardia Sinus bradycardia Mixed hyperlipidemia Bilateral carotid artery stenosis Essential hypertension Paroxysmal atrial fibrillation Vertigo Rosacea Depression Hormone deficiency IBS (irritable bowel syndrome) Arthritis Seasonal allergies GERD (gastroesophageal reflux disease) Hypothyroidism Menieres disease Home Medications ?Medication ?Instructions ?Recorded ?Last Taken ?Type calcium carbonate 600 mg-vitamin 1 ea PO DAILY SUPPELEMENT 12/04/14 01/09/21 History D3 20 mcg (800 unit) tablet estradiol 0.5 mg tablet 0.5 mg PO DAILY HORMONE 12/04/14 01/17/24 History lactase 3,000 unit tablet 1 tab PO PRN PRN unk 12/04/14 Unknown History clindamycin phosphate 1 % topical 1 applic topical BID PRN ROSECA 11/29/19 Unknown History gel cholecalciferol (vitamin D3) 50 50 mcg PO DAILY SUPPLEMENT 01/25/20 01/16/24 History mcg (2,000 unit) tablet azelastine 205.5 mcg (0.15 %) 2 spray intranasal DAILY PRN 04/17/20 01/15/24 History nasal spray breathing levothyroxine 75 mcg tablet 88 mcg PO DAILY THYROID 10/11/20 01/18/24 History (Synthroid) rosuvastatin 20 mg tablet 20 mg PO DAILY CHOLESTEROL 10/11/20 01/16/24 History cetirizine 10 mg tablet 10 mg PO DAILY PRN allergies\ 12/05/20 01/09/21 History pantoprazole 40 mg tablet,delayed 40 mg PO DAILY GERD 10/30/22 01/18/24 History release sertraline 100 mg tablet 100 mg PO QDAY DEPRESSION 09/16/23 01/18/24 History cyclobenzaprine 5 mg tablet 5 mg PO TID PRN muscle spasm 12/01/23 01/16/24 History hydrocodone-acetaminophen 5-325mg 1 tab PO BID PRN pain 12/01/23 01/17/24 History 5mg-325mg meclizine 25 mg tablet 25 mg PO TID PRN dizziness 12/18/23 01/18/24 History acetaminophen 650 mg 650 mg PO Q12H PRN pain 12/30/23 01/17/24 History tablet,extended release (Tylenol Arthritis Pain) Allergy/AdvReac Type Severity Reaction Status Date / Time adhesive tape Allergy Unknown unknown Verified 01/18/24 06:04 influenza virus vaccine, Allergy Unknown unknown Verified 01/18/24 06:04 specific neomycin (From Neosporin Allergy Unknown unknown Verified 01/18/24 06:04 ([id number])) bacitracin (From Neosporin Allergy Rash Verified 01/18/24 06:04 ([id number])) bacitracin zinc (From Allergy Rash Verified 01/18/24 06:04 Neosporin (vog-ezt-[id number])) neomycin sulfate (From Allergy Rash Verified 01/18/24 06:04 Neosporin (rnu-[id number])) polymyxin B (From Neosporin Allergy Rash Verified 01/18/24 06:04 ([id number]-[id number])) aspirin AdvReac Other Verified 01/18/24 06:04 codeine AdvReac Other Verified 01/18/24 06:04 feathers AdvReac swelling, Verified 01/18/24 06:04 itching morphine AdvReac Other Verified 01/18/24 06:04 Family History Father Alcoholism CVA (cerebral vascular accident) Mother CVA (cerebral vascular accident) Brother CVA (cerebral vascular accident) Sister CVA (cerebral vascular accident) Thyroid disorder Kidney disease Surgical History Hx of right cataract extraction Hx of left cataract extraction History of esophagogastroduodenoscopy (EGD) Hx of colonoscopy History of lumbar fusion Hx of fusion of cervical spine History of cardiac catheterization (~07/08/19) History of bunionectomy History of laminectomy History of cholecystectomy H/O: hysterectomy Social History Smoking Status: Never smoker alcohol intake: current Alcohol type: beer and hard liquor substance use type: does not use caffeine: No what type of physical activity do you participate in: none Review of Systems (Anesthesia) ROS Narrative System reviewed and no additional complaints, except as documented.
--- NOTE | 2024-01-18 07:29 | HP.PCM_ITS ---
History and Physical Date of Admission: 01/18/24 MR#: [id number] Acct: [id number] Name: LISBET RIVERA Rep #: [id number] : 1940 Provider: Dr. Trey Cortez MD Age/Sex: 83/F Location: [facility] – [place] Status: Signed Intake Vital Signs 10/07/2408:49 12/21/2415:20 Height 5 ft 1 in 5 ft 1 in Intake Visit Reasons: lumbar spine Chief Complaint: pre-op Accompanied by: Allergies adhesive tape Allergy (Unknown, Verified 01/08/24 12:58) unknown influenza virus vaccine, specific Allergy (Unknown, Verified 01/08/24 12:58) unknown neomycin (From Neosporin (msh-tiw-maamd)) Allergy (Unknown, Verified 01/08/24 12:58) unknown bacitracin (From Neosporin (cht-edn-dbaho)) Allergy (Verified 01/08/24 12:58) Rashbacitracin zinc (From Neosporin (fqe-vac-wniio)) Allergy (Verified 01/08/24 12:58) Rashneomycin sulfate (From Neosporin (jvs-gwo-ccdqd)) Allergy (Verified 01/08/24 12:58) Rashpolymyxin B (From Neosporin (wtz-kdh-bbfat)) Allergy (Verified 01/08/24 12:58) Rashaspirin Adverse Reaction (Verified 01/08/24 12:58) Othercodeine Adverse Reaction (Verified 01/08/24 12:58) Otherfeathers Adverse Reaction (Verified 01/08/24 12:58) swelling, itchingmorphine Adverse Reaction (Verified 01/08/24 12:58) Other Medications ?Medication ?Instructions ?Recorded ?Confirmed ?Type calcium carbonate 600 mg-vitamin 1 ea PO DAILY SUPPELEMENT 12/04/14 01/08/24 History D3 20 mcg (800 unit) tablet estradiol 0.5 mg tablet 0.5 mg PO DAILY HORMONE 12/04/14 01/08/24 History lactase 3,000 unit tablet 1 tab PO PRN PRN unk 12/04/14 01/08/24 History clindamycin phosphate 1 % topical 1 applic topical BID PRN ROSECA 11/29/19 01/08/24 History gel cholecalciferol (vitamin D3) 50 50 mcg PO DAILY SUPPLEMENT 01/25/20 01/08/24 History mcg (2,000 unit) tablet azelastine 205.5 mcg (0.15 %) 2 spray intranasal DAILY PRN 04/17/20 01/08/24 History nasal spray breathing levothyroxine 75 mcg tablet 88 mcg PO DAILY THYROID 10/11/20 01/08/24 History (Synthroid) rosuvastatin 20 mg tablet 20 mg PO DAILY CHOLESTEROL 10/11/20 01/08/24 History cetirizine 10 mg tablet 10 mg PO DAILY PRN allergies\ 12/05/20 01/08/24 History pantoprazole 40 mg tablet,delayed 40 mg PO DAILY GERD 10/30/22 01/08/24 History release sertraline 100 mg tablet 100 mg PO QDAY DEPRESSION 09/16/23 01/08/24 History cyclobenzaprine 5 mg tablet 5 mg PO TID PRN muscle spasm 12/01/23 01/08/24 History hydrocodone-acetaminophen 5-325mg 1 tab PO BID PRN pain 12/01/23 01/08/24 History 5mg-325mg meclizine 25 mg tablet 25 mg PO TID PRN dizziness 12/18/23 01/08/24 History acetaminophen 650 mg 650 mg PO Q12H PRN pain 12/30/23 01/08/24 History tablet,extended release (Tylenol Arthritis Pain) Have you fallen in the past year?: No PFSH Medical History Wears hearing aid Post-menopausal Alcohol use Arthritis Anemia High cholesterol Restless legs Back pain History of IBS Gastric reflux Non-smoker CPAP (continuous positive airway pressure) dependence Leg cramps History of pain when walking History of stress test Cardiology follow-up encounter Acute otitis externa of left ear Foreign body in right auditory canal Anxiety and depression Preoperative evaluation to rule out surgical contraindication Scabies Peripheral arterial disease Left flank pain Cough Maxillary sinusitis, acute Right shoulder pain Flu vaccine need Right knee pain Encounter for screening for COVID-19 URI (upper respiratory infection) Left shoulder pain Paroxysmal supraventricular tachycardia Sinus bradycardia Mixed hyperlipidemia Bilateral carotid artery stenosis Essential hypertension Paroxysmal atrial fibrillation Vertigo Rosacea Depression Hormone deficiency IBS (irritable bowel syndrome) Arthritis Seasonal allergies GERD (gastroesophageal reflux disease) Hypothyroidism Menieres disease Surgical History Hx of right cataract extraction Hx of left cataract extraction History of esophagogastroduodenoscopy (EGD) Hx of colonoscopy History of lumbar fusion Hx of fusion of cervical spine History of cardiac catheterization (~07/08/19) History of bunionectomy History of laminectomy History of cholecystectomy H/O: hysterectomy Family History Father Alcoholism CVA (cerebral vascular accident)Mother CVA (cerebral vascular accident)Brother CVA (cerebral vascular accident)Sister CVA (cerebral vascular accident) Thyroid disorder Kidney disease Social History Smoking Status: Never smoker alcohol intake: current Alcohol type: beer and hard liquor substance use type: does not use caffeine: No what type of physical activity do you participate in: none HPI lumbar spine Details: This documentation accurately reflects the service provided and the decisions made by me, Dr. Trey Cortez MD 01/08/24 1253. Part of today?s visit was documented by Vandana CASTELLON, acting as scribe. LISBET RIVERA is a 83 year old F here today for pre-op appointment DOS 01/18/24. Patient denies any changes today. She says that she has chest congestion that she has been dealing with and taking Mucinex. 12/01/23: LISBET RIVERA is a 83 year old F here today for follow up from CT scan of lumbar spine on 11-10-23. She would like to discuss results and next steps. Lisbet continues to have low back pain near the upper part of the incision radiating down to the lower extremities. Following is a previous history.: 10/28/23: LISBET RIVERA is a 83 year old F here today for MRI review of the lumbar spine. Patient rates her pain a 8/10 today. Patient comes in today wearing a back brace/support. Patient states that her lumbar spine pain has gotten worse since the last time she was seen. Patient states she did have an injection about 2 weeks ago and she is scheduled for another one tomorrow with Dr. Bryan. She states the one 2 weeks ago did not give her any relief. Patient states she takes arthritis strength Tylenol for the pain. She has started physical therapy and has also had 1 epidural injection which did not seem to give her much relief. She continues to have lower back pain which is paraspinal worse on the left. She has a right lateral thigh radiation today. She says the lateral thigh radiation on the right has been there since the surgery 2 years ago. She wears a lumbar soft belt for comfort now. Following is a previous history: 10/08/23: LISBET RIVERA is a 83 year old F here today for Lumbar Pain. Patient states that her back has bothered her for 3 weeks, with the last 2 weeks being worse. Patient has had no injury to her back she did have 2 surgery in her lower back (2022). Patient denies any numbness or tingling going down her legs and no pain down the legs. Patient states the pain does go into her right hip and the side. Patient has tried ice and heat and that doesn't help. Patient has been using the lidocaine patches and they help a little more. Patient states the y help the most. Patient has had 1 steroid injection in her back before her back surgery in 2003. Patient states it didn't help her. Patient is taking Extra Strength Tylenol for her pain. Patient is also taking Mobic and Cyclobenzaprine for her pain. Patient hasn't had any Physical therapy recently or any Chiropractor appt. Lisbet spends wade here and goes to [place] in the winter. She has a spine surgeon in [place] who has done her recent surgeries. She underwent likely an L4-S1 fusion back in 2003 for symptoms of severe back pain and possible leg pain. This improved her symptoms. About 2 years ago she started having neck pain radiating to the upper extremity for which she underwent a possible ACDF 2 years ago. 6 months later, she underwent another lumbar surgery which was extension of her fusion up to L2, based on imaging and her memory. She says that she was doing great after the last surgery. She saw her surgeon a few months after the surgery and everything was looking good. About 2 to 3 weeks ago, she started having severe left sided back pain in the midportion of her incision likely mid lumbar spine going towards the left flank into the left lateral and anterior hip and groin. The anterior thigh. She denies any symptoms below the knee. She has not had any physical therapy or injections in the lower back recently. She has had epidural steroid injections in the past. She is nondiabetic. Ortho Exam General General: Yes no acute distress Neurologic: Yes alert and Yes oriented x3 Spine SPINE TESTING CERVICAL THORACIC LUMBAR Musculoskeletal Strength 0=absent - 5=normal Details: Examination the back shows prior midline incision scar well-healed. There is midline and left paraspinal tenderness in the mid lumbar region. Neurologic evaluation of lower extremity shows 5 x 5 power normal shows normal sensations in all dermatomes. Right knee reflexes brisk. She walks without any ambulatory aid with a cautious antalgic gait. Coding Level of Care Code Off vis,est,level 4 Diagnoses Pseudoarthrosis of lumbar spine S32.009K Leg length discrepancy M21.70 Fusion of lumbar spine M43.26 Time Spent (min) 35 Assessment and Plan Assessment and Plan (1) Pseudoarthrosis of lumbar spine: Status: Acute (2) Leg length discrepancy: Status: Acute (3) Fusion of lumbar spine: Status: Acute Plan I again reviewed x-rays done previously and MRI done recently of her lumbar spine. I also reviewed her DEXA scan as well as recently done CT. These show prior stable L4-S1 fusion with bilateral instrumentation, with extension of fusion to L2 with only right-sided pedicle screw instrumentation. L2 pedicle screw appears loose and has a halo around it suggestive of possible pseudoarthrosis at the send L2-3 level. There is a degenerative scoliosis with asymmetric collapse at L2-3 and L3-4 discs. Patient has limb length discrepancy with left longer than right. No dynamic instability with flexion-extension views. MRI shows degenerative mild stenosis at L2-3 and L3-[address] shows halo around right L2 screw with L2-3 and L3-4 pseudoarthrosis. DEXA scan shows osteopenia. Discussed in detail the surgical procedure today with the patient and her . Reviewed the benefits and risks of surgery. Risks of surgery include bleeding, infection, visceral injury, ileus, hardware failure, pseudoarthrosis, adjacent segment degeneration, pneumonia, DVT, pulmonary embolism, atelectasis, gait abnormality, persistent pain, stretch injuries of nerve root, chance for future surgeries. Patient understands and agrees to proceed with surgery. Discussed post surgery restrictions such as no bending, lifting, or twisting. Answered all questions that she had today in preparation for the surgery. Patient agrees and wishes to proceed with the surgery. Consent was signed.
[2024-01-18] MEDS: Cefazolin 2 GM in 0.9% Normal Saline (100mL Bag) 100 ML IV ×4 (07:51→20:21)
--- NOTE | 2024-01-18 09:00 | RAD_ITS ---
PROCEDURE: Intraoperative fluoroscopic services. DATE OF EXAMINATION: January 18, 2024. INDICATION: Female, 83 years old. Lumbar fusion. FLUOROSCOPY TIME (if supplied): (3 minutes and 49 seconds) minutes/seconds. 28 fluoroscopic images were submitted. RAD/Lumbar Spine 2 or 3 Views IMPRESSION: Intraoperative imaging provided for multilevel intraoperative fusion. Electronically Signed: Josias Gamez MD at 13:19 EDT ,
[2024-01-18] MEDS: Ropivacaine 0.5% 30 ML Vial (16:07)
--- NOTE | 2024-01-18 16:07 | OP.PCM_ITS ---
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 L2-3 anterolateral spinal fusion 86573 ? L3-4 anterolateral fusion 66255/51 ? L2-3 insertion of cage 05077 ? L3-4 insertion of cage 91302/51 . Exploration of previous fusion ? Bone graft aspirate left iliac crest separate incision ? Allograft cancellous chips with Medtronic Infuse sponge Attending Surgeon: Dr. Trey Cortez Estimated blood loss: 100 mL Anesthesia: General Complications: None Indications: Patient is a 83-year-old pleasant lady who has had a long history of low back pain and left-sided radiation into the flank and anterior groin and thigh with difficulty walking distances. Xrays, CT & MRI revealed Degenerative lumbar scoliosis, prior L2-S1 fusion with L2-4 pseudoarthrosis, L2- 4 disc degeneration, foraminal stenosis stenosis with neurogenic claudication. There was obvious screw loosening of right L2 pedicle screw. No left-sided hardware was placed in previous surgery on the left side and L2 and L3. After undergoing a prolonged period of nonoperative treatment, the patient elected to undergo surgical decompression & fusion. All surgical options were discussed with the patient including anterior and posterior approaches. All risks and benefits associated with the procedure were explained to the patient. The risks include but are not limited to infection, bleeding, injury to nerves and vessels including major vessels like IVC and aorta, persistent paresthesia, persistent pain, dural tear, need for further procedures, adjacent segment degeneration, pseudoarthrosis, hardware failure, retrograde ejaculation, paralytic ileus, etc. Procedure: The patient was identified in the preoperative holding suite using Unique patient identifiers. Skin was marked, consent was reviewed, and all questions were answered. The patient was then brought back to the operative room. A surgical timeout was performed to make sure correct procedure was being done on the correct patient and all operative room staff were on the same page. General endotracheal anesthesia was then given to the patient. Gomes catheter was inserted. The patient was then carefully positioned in right lateral decubitus position with the left side up on a regular OR table. Axillary roll was placed and all bony prominences were well- padded. Hip positioners were placed in the posterior buttocks and anterior sternal area. The surgical area was prepped and draped in usual fashion. Preoperative antibiotic was injected IV as preoperative antibiotic. A final timeout was then again done just before starting the procedure. A 2 inch incision oblique was taken in the left lower quadrant of the abdomen 2 fingerbreadths away from the iliac crest and the lower ribs. Sharp dissection with Bovie was carried out up to the fascia covering the external oblique. The external oblique, internal oblique and transversus abdominis muscles were split along the muscle fibers and retroperitoneal space was entered. Sponge sticks were utilized to move the bowel and peritoneum [id number]-ek-[id number]-way and psoas muscle was exposed staying within the retroperitoneal plane. [employer] retractor system was positioned and the retractor blade was applied onto the psoas. The interval between psoas and midline structures was developed and appropriate retractors were placed. Once adequate interval was cleared, a disc space was identified and a marker x-ray was taken. This identified the L3-4 disc level. The prepsoas interval was then traced superiorly to expose the L2-3 disc. Annulotomy was done with a long handled knife starting at L2-3. pituitary was used to remove disc material. Curettes were used to prepare the endplates. Disc space spreaders were utilized to distract and increase the disc height. Near complete discectomy was performed. Trials of serially increasing sizes were used. A Jamshidi needle was used to aspirate bone marrow from the left anterior iliac crest through a separate incision and this aspirate was mixed with the allograft bone chips. A small kit of Medtronic BMP infuse was opened. A Depuy [place] cage of size of the 18 x 45 x 12 mm with 15 degrees lordosis was packed with corticocancellous allograft bone chips mixed with bone marrow aspirate wrapped in BMP Medtronic infuse sponge. This was inserted into the L2-3 disc space. The retractors were then repositioned to expose the L3-4 disc and the procedure was repeated with complete discectomy and endplate preparation. Smaller disc distractors were also used to bluntly perform a contralateral annulotomy at both levels. Cage size was 18 x 50 x 12 mm at L3-4. Significant sclerosis was noticed at the L3-4 endplates. AP and lateral C-arm pictures were taken to confirm good position of the cage. Some bone chips were also packed around the cages. Screw with washer was placed into the lower L2 and L3 body with a washer partially covering the cage at L2-3 and L3-4 respectively. No fusion was observed at L2-3 and L3-4 segments from the prior surgeries. L4-5 seem to show solid fusion anteriorly. Hemostasis was confirmed. The retractor blades were removed. Closure was done in layers with a continuous strand of # 1 Vicryl in all muscle layers. 2-0 Vicryl was used for subcutaneous tissue and 4-0 for Monocryl for the skin. Steri-Strips were applied and 4 x 4 gauze and Tegaderm were applied. Surgeon: Trye Cortez featheredger and reducer machine: Melissa Gamboa Admit VTE Documentation VTE Mechan Device Prophylaxis: SCD's Procedures Musculoskeletal [id number]: Other Procedure See Report
--- NOTE | 2024-01-18 16:20 | OP.PCM_ITS ---
Report of Operation Date of Procedure: 01/18/24 Description of Surgical Findings:: Preoperative diagnosis: Degenerative lumbar scoliosis, prior L2-S1 fusion with L2-4 pseudoarthrosis, L2-4 disc degeneration, foraminal stenosis stenosis with neurogenic claudication Postoperative diagnosis: Same Name of procedures: L2-4 revision posterior percutaneous pedicle screw instrumented fusion with cement augmentation, removal of previous right L2, right L3, bilateral L4 screws, prone: ? L2-3 posterior spinal fusion 24066 ? L2-4 posterior pedicle screw instrumentation 84372 ? L3-4 posterior fusion /51 -L2-4 posterior removal of instrumentation - Posterior exploration of fusion ? Allograft cancellous chips Attending Surgeon: Dr. Trey Cortez Estimated blood loss: 100 mL (total for entire case) Anesthesia: General Complications: None Description of procedure: After the anterior procedure was complete, the patient was then turned supine. The patient was then transferred to Frankie table in prone position. Back was prepped and draped in usual fashion. C-arm AP view was then taken. C-arm was positioned in a way that L2 was centralized and superior endplate of was parallel to the beam. Spinous process was centered between the pedicles. Midline was marked with skin marker and lateral borders of the pedicles were also marked. Skin marker was also utilized to noe transversely across the middle of the pedicles at L2. 2 transverse paramedian incisions of 1 inch were placed. The fascia was incised vertically. Finger dissection was utilized to palpate the transverse process and facet joint. Viper Prime screws with towers were inserted and docked onto the transverse processes on the left side. This was then slowly moved medially to reach the superior articular process of L2. This was then confirmed on C-arm and then a mallet was utilized to drive the trocar into the pedicle going up to the medial wall of the pedicle on AP view. C-arm lateral view confirmed that the tip of the trocar was in the vertebral body, and the screw was advanced into the pedicle and vertebral body. Serial dilators were utilized to expose the right L2 screw using a tubular retractor. Soft tissue over the previous right L2 screw was removed. Setscrew was removed. Percutaneous pedicle screw was placed similarly at L3 on the left. Using tubular retractor, such over L3 was also removed. [id number]-rh-[id number] connector between the L2-4 fixation and the previous L4-S1 fixation on the right side was then exposed using tubular retractors. Setscrews over the cytocide connector was then removed. The right L2-4 previous mani was then removed using percutaneous instrumentation. Right L2 and right L3 pedicle screws were then removed. Both of these were found to be loose. Evidence of pseudoarthrosis were noticed when exploration of fusion was performed with the facets posteriorly at L2-3 and L3-4 levels. L4-5 showed adequate fusion. Previous pedicle screw holes were utilized for right L2 and L3 to start the screw however this was directed inferiorly to have better purchase into the inferior vertebral body anteriorly as there was a large screw in especially at L2 on the right. Adequate purchase was obtained although it was still felt that the patient's bone was osteopenic. Previous L4 pedicle screws were then exposed from tubular retractors. Setscrews were removed. Previous hardware had set up of 2 set screws. Both of these were removed on the right side. The mani was cut below the L4 screws bilaterally using a metal cutting bur through the tubular dilators and metal debris was adequately irrigated and removed. Right L4 screw had difficulty with external or outer setscrew. Helicopter technique was also unsuccessful on the right L4 screw. Eventually the screw came out using screw removal instrumentation. The left L4 screw had both setscrews easily come out. The mani was then cut below the L4 screw using metal cutting bur. The pedicle screw at L4 on the left had stripped head and this did not come out easily. Reverse threading screw removal set was then utilized to remove the screw. The tulip saddle came off and the screw was half removed. A vice glue machine operator was then utilized to remove the remainder of the screw. New DePuy Viper prime L4 pedicle screws were then placed into the previous screw holes. Screw sizes were 7 x 50 mm at L2, L3 and L4 bilaterally. Purchase was decent but not strong due to osteopenic bone. Decision was made to perform cement augmentation. Utilizing DePBox Upon a Time system cement was then injected through the fenestrated screws under C-arm guidance. Mild anterior extravasation was noticed but this was felt to be acceptable. 90 mm precontoured titanium 5.5 mm lordotic mani on the right and 75 mm on the left were then passed through the screw extensions and reduced down to the screws with the help of DepOpen[employer]ine[employer] instrumentation system on both sides. AP and lateral view of the C-arm showed good positioning of the screws and cages. Final tightening with the torque screwdriver was then completed. Hoa was utilized to roughen the facet joint at L2-3 and L3-4 on the right side. Cancellous allograft bone chips mixed with bone marrow aspirate were then placed over this decorticated area. Hemostasis was achieved. Closure was done in layers with 0 Vicryls for the fascia, 2-0 Vicryls for the subcutaneous tissue, and Monocryl for the skin. Dermabond was applied. Dressings were applied covered with Tegaderm. The patient was then turned supine onto a hospital bed. The patient was extubated and taken to PACU in stable condition. The patient tolerated the procedure well and no complications occurred. [employer] (formerly [employer]) [place] cage & Viper Prime minimally invasive pedicle screw instrumentation system was utilized in this case. No dural tear was identified intraoperatively. I was present for the entirety of the case and performed the surgery. Surgeon: Trey Cortez pelt inspector: Melissa Gamoba Procedures Musculoskeletal [id number]: Other Procedure See Report
--- NOTE | 2024-01-18 16:49 | PCM.POST.ANE ---
Anesthesia: Postop Eval I Current Vital Signs Temperature: 96.6 F Pulse Rate: 70 Blood Pressure: 102/71 Respiratory Rate: 70 Pulse Ox: 98 Oxygen Delivery Method: Room Air Assessment Airway patent: Yes Spontaneous unlabored respirations: Yes Mental status: Awake and Calm nausea: No Vomiting: No Anesthesia Complication: No Fluid Hydration Crystalloid volume administer (ml): 2,000 Total IV fluid infused: 2,000 Progress Note Anesthesia document: Postop Eval 1 completed: Yes
--- NOTE | 2024-01-18 17:17 | POSTOPAN2_ITS ---
Anesthesia Postop Eval I Sum Postop Eval Completion status Anesthesia document: Postop Eval 1 completed: Yes Anesthesia Postop Eval I Summary Anesthesia Postop Eval I Summary: Anesthesia Postop Eval I: Assessment Summary Airway patent Yes 01/18/24 16:51 [email or web address] Spontaneous unlabored Yes 01/18/24 16:51 [email or web address] respirations Mental status Awake,Calm 01/18/24 16:51 [email or web address] nausea No 01/18/24 16:51 [email or web address] Vomiting No 01/18/24 16:51 [email or web address] Anesthesia Postop Eval I: Fluid Summary Crystalloid volume administer 2,000 01/18/24 16:51 [email or web address] (ml) Colloids volume administered ( ml) Blood Product volume administered (ml) Total IV fluid infused 2,000 01/18/24 16:51 [email or web address] Anesthesia Postop Eval I: Summary Notes Anesthesia Complication No 01/18/24 16:51 [email or web address] Anesthesia Complication Comment: Post-operative progress note Anesthesia: Postop Eval II Evaluation Mental status: Awake and Calm Pain Level: 1 nausea: No Vomiting: No Complications Anesthesia Complication: No
--- NOTE | 2024-01-18 17:17 | PCM.POSTANE2 ---
Anesthesia Postop Eval I Sum Postop Eval Completion status Anesthesia document: Postop Eval 1 completed: Yes Anesthesia Postop Eval I Summary Anesthesia Postop Eval I Summary: Anesthesia Postop Eval I: Assessment Summary Airway patent Yes 01/18/24 16:51 [email or web address] Spontaneous unlabored Yes 01/18/24 16:51 [email or web address] respirations Mental status Awake,Calm 01/18/24 16:51 [email or web address] nausea No 01/18/24 16:51 [email or web address] Vomiting No 01/18/24 16:51 [email or web address] Anesthesia Postop Eval I: Fluid Summary Crystalloid volume administer 2,000 01/18/24 16:51 [email or web address] (ml) Colloids volume administered ( ml) Blood Product volume administered (ml) Total IV fluid infused 2,000 01/18/24 16:51 [email or web address] Anesthesia Postop Eval I: Summary Notes Anesthesia Complication No 01/18/24 16:51 [email or web address] Anesthesia Complication Comment: Post-operative progress note Anesthesia: Postop Eval II Evaluation Mental status: Awake and Calm Pain Level: 1 nausea: No Vomiting: No Complications Anesthesia Complication: No
[2024-01-18] MEDS: Ketorolac 15 MG/ML Vial IV (19:05)
--- NOTE | 2024-01-18 19:08 | CON.PCM.HO_ITS ---
Assessment & Plan Assessment/Plan (1) Essential hypertension: (2) Hyperlipidemia: QUALIFIERS: Hyperlipidemia type: unspecified Qualified Code(s): E78.5 - Hyperlipidemia, unspecified (3) Hypothyroid: QUALIFIERS: Hypothyroidism type: unspecified Qualified Code(s): E03.9 - Hypothyroidism, unspecified (4) Obesity (BMI 30.0-34.9): PLAN: Plan 1. Third Lumbar Fusion; POD #0 in the setting of known OA; with history of low back pain and pseudoarthrosis of the lumbar spine with history of lumbar & cervical fusion (2001) and 2nd Lumbar Fusion (2021) who was admitted to the orthopedic service of Dr. Cortez - Continue supportive care previously ordered by orthopedics and monitor for improvement. 2. Essential hypertension - Resume current regimen plus give prn IV Hydralazine for systolic blood pressure > 160 mmHg. 3. Hyperlipidemia - Continue statin. 4. Hypothyroidism - Resume Synthroid at current dose and check TSH. 5. Obesity; with BMI of 32.8 this admission - Weight loss will be recommended. 6. CHARLENE; on CPAP - Continue CPAP as previous. 7. History of PAF (2020); not previously on anticoagulation with history of cardiac radiofrequency ablation - NOted. 8. History of PSVT - Noted. 9. History of bilateral carotid stenosis - Stable. 10. PAD - Stable. 11. History of COVID-19 - Noted. 12. RLS - Continue current treatment. 13. Chronic anemia - Apparently stable. Check CBC to follow trend. 14. Rosacea - Noted. 15. History of Meniere's disease with vertigo; on Meclizine TID prn - Maintain PRN Meclizine as previous. 16. Histotry of cholecystectomy (1991) - Noted. 17. Remote history of hysterectomy (1971) - Noted. 18. Depression with anxiety - Resume current regimen. 19. IBS - Stable. 20. GERD - Continue PPI. 21. DVT prophylaxis - As per orthopedic team. Total time: Approximately 45 minutes. HPI Consult Data Date of Consult: 01/19/24 HPI Narrative Reason for Consultation: Medical Management after Lumbar Fusion. HPI Narrative: LISBET SHAIKH, is a 83 F with a past medical history of essential hypertension, hyperlipidemia, hypothyroidism, obesity; with BMI of 32.8 this admission, CHARLENE; on CPAP, history of PAF (2020); not previously on anticoagulation with history of cardiac radiofrequency ablation, history of PSVT, history of bilateral carotid stenosis, PAD, history of COVID-19, RLS, chronic anemia, rosacea, history of Meniere's disease with vertigo; on Meclizine TID prn, history of cholecystectomy (1991), remote history of hysterectomy (1971), depression with anxiety, IBS, GERD and OA; with history of low back pain and pseudoarthrosis of the lumbar spine with history of lumbar & cervical fusion (2001) and repeat lumbar fusion (2021) who was admitted to the orthopedic service of Dr. Cortez to undergo her 3rd Lumbar Fusion with patient POD #0 with consult then subsequently placed for medical management by the hospitalist service. Ms. Shaikh is somnolent but she does admit to severe pain in her back and leg. Her beloved was at the bedside and he informed me he was warned her pain would likely be severe since this is her 3rd lumbar fusion. Her records were reviewed and I spoke to her RN about her case. Thank you for allowing us to participate in the care of your patient. [facility] Medical History Wears hearing aid Post-menopausal Alcohol use Arthritis Anemia High cholesterol Restless legs Back pain History of IBS Gastric reflux Non-smoker CPAP (continuous positive airway pressure) dependence Leg cramps History of pain when walking History of stress test Cardiology follow-up encounter Acute otitis externa of left ear Foreign body in right auditory canal Anxiety and depression Preoperative evaluation to rule out surgical contraindication Scabies Peripheral arterial disease Left flank pain Cough Maxillary sinusitis, acute Right shoulder pain Flu vaccine need Right knee pain Encounter for screening for COVID-19 URI (upper respiratory infection) Left shoulder pain Paroxysmal supraventricular tachycardia Sinus bradycardia Mixed hyperlipidemia Bilateral carotid artery stenosis Essential hypertension Paroxysmal atrial fibrillation Vertigo Rosacea Depression Hormone deficiency IBS (irritable bowel syndrome) Arthritis Seasonal allergies GERD (gastroesophageal reflux disease) Hypothyroidism Menieres disease Home Medications ?Medication ?Instructions ?Recorded ?Last Taken ?Type calcium carbonate 600 mg-vitamin 1 ea PO DAILY SUPPELEMENT 12/04/14 01/09/21 History D3 20 mcg (800 unit) tablet estradiol 0.5 mg tablet 0.5 mg PO DAILY HORMONE 12/04/14 01/17/24 History lactase 3,000 unit tablet 1 tab PO PRN PRN unk 12/04/14 Unknown History clindamycin phosphate 1 % topical 1 applic topical BID PRN ROSECA 11/29/19 Unknown History gel cholecalciferol (vitamin D3) 50 50 mcg PO DAILY SUPPLEMENT 01/25/20 01/16/24 History mcg (2,000 unit) tablet azelastine 205.5 mcg (0.15 %) 2 spray intranasal DAILY PRN 04/17/20 01/15/24 History nasal spray breathing levothyroxine 75 mcg tablet 88 mcg PO DAILY THYROID 10/11/20 01/18/24 History (Synthroid) rosuvastatin 20 mg tablet 20 mg PO DAILY CHOLESTEROL 10/11/20 01/16/24 History cetirizine 10 mg tablet 10 mg PO DAILY PRN allergies\ 12/05/20 01/09/21 History pantoprazole 40 mg tablet,delayed 40 mg PO DAILY GERD 10/30/22 01/18/24 History release sertraline 100 mg tablet 100 mg PO QDAY DEPRESSION 09/16/23 01/18/24 History cyclobenzaprine 5 mg tablet 5 mg PO TID PRN muscle spasm 12/01/23 01/16/24 History hydrocodone-acetaminophen 5-325mg 1 tab PO BID PRN pain 12/01/23 01/17/24 Hist ory 5mg-325mg meclizine 25 mg tablet 25 mg PO TID PRN dizziness 12/18/23 01/18/24 History acetaminophen 650 mg 650 mg PO Q12H PRN pain 12/30/23 01/17/24 History tablet,extended release (Tylenol Arthritis Pain) Allergy/AdvReac Type Severity Reaction Status Date / Time adhesive tape Allergy Unknown unknown Verified 01/18/24 06:04 influenza virus vaccine, Allergy Unknown unknown Verified 01/18/24 06:04 specific neomycin (From Neosporin Allergy Unknown unknown Verified 01/18/24 06:04 ([id number])) bacitracin (From Neosporin Allergy Rash Verified 01/18/24 06:04 ([id number])) bacitracin zinc (From Allergy Rash Verified 01/18/24 06:04 Neosporin ([id number])) neomycin sulfate (From Allergy Rash Verified 01/18/24 06:04 Neosporin ([id number])) polymyxin B (From Neosporin Allergy Rash Verified 01/18/24 06:04 ([id number])) aspirin AdvReac Other Verified 01/18/24 06:04 codeine AdvReac Other Verified 01/18/24 06:04 feathers AdvReac swelling, Verified 01/18/24 06:04 itching morphine AdvReac Other Verified 01/18/24 06:04 Family History Father Alcoholism CVA (cerebral vascular accident) Mother CVA (cerebral vascular accident) Brother CVA (cerebral vascular accident) Sister CVA (cerebral vascular accident) Thyroid disorder Kidney disease Surgical History Hx of right cataract extraction Hx of left cataract extraction History of esophagogastroduodenoscopy (EGD) Hx of colonoscopy History of lumbar fusion Hx of fusion of cervical spine History of cardiac catheterization (~07/08/19) History of bunionectomy History of laminectomy History of cholecystectomy H/O: hysterectomy Social History Smoking Status: Never smoker alcohol intake: current Alcohol type: beer and hard liquor substance use type: does not use caffeine: No what type of physical activity do you participate in: none ROS ROS Narrative Full review of systems was not possible at this time due to patient still having sedating effects of anesthesia with severe pain. Physical Exam Const alert Constitutional Narrative: Obese and slightly lethargic with anesthesia wearing off and patient complaining of pain. General Appearance: cooperative Orientation / Consciousness: lethargic HEENT normocephalic, head/scalp atraumatic, hearing grossly normal bilaterally and moist oral mucous membranes Eyes PERRL and EOMs intact bilaterally Neck no lymphadenopathy and supple Resp normal respiratory effort, no retractions, no use of accessory muscles and clear to auscultation bilaterally Cardio regular rate and regular rhythm GI normal to inspection, nondistended, normoactive bowel sounds, soft to palpation, non-tender and non-distended Extremity normal to inspection and full ROM Skin Skin Narrative: Patient has no evidence of rash, abscess, wound or jaundice. Neuro oriented x3, CN's II-XII intact bilaterally, moves all extremities and no focal motor deficits Sensorium / Orientation: awake, alert, oriented to person, oriented to place and oriented to time Speech: speech normal Psych Psych Narrative: Patient is somnolent and appears to be in [id number] distress. Medical Records Data Attestation: I reviewed the patient's medical records Lab / Micro Data Attestation: I reviewed the patient's lab results. Labs: Laboratory Results - last 24 hr 01/18/24 05:49: POC Glucose 168 H Charges/Coding Visit Charges Inpatient E&M: 26226 Init Hosp L1
[2024-01-18] MEDS: 0.9% Saline Lock 10 ML Syringe IV (19:52)
[2024-01-18] MEDS: Morphine 2 MG/ML Syringe IV (19:52)
[2024-01-18] MEDS: 0.9% NaCl Peripheral Flush Adult/Peds IV (20:20)
[2024-01-18] MEDS: Senna/Docusate Sodium 1 Tablet 2 TABLET PO (21:34)
[2024-01-18] MEDS: Atorvastatin Calcium 40 MG Tablet PO (21:34)
[2024-01-18] MEDS: Methocarbamol 500 MG Tablet 1000 MG PO (21:34)
[2024-01-19] VITALS (7 sets, daily range): BP systolic 108–141; BP diastolic 37–55; PULSE 77–102; RESP 16–18; TEMP 35.5–37.6; O2SAT 95–100
[2024-01-19] MEDS: Ketorolac 15 MG/ML Vial IV ×2 (00:16→06:06)
[2024-01-19] MEDS: 0.9% NaCl Peripheral Flush Adult/Peds IV ×2 (00:17→06:06)
[2024-01-19] MEDS: Methocarbamol 500 MG Tablet 1000 MG PO ×4 (03:12→21:33)
[2024-01-19] MEDS: Cefazolin 2 GM in 0.9% Normal Saline (100mL Bag) 100 ML IV (04:21)
[2024-01-19] MEDS: oxyCODONE 5 MG Tablet PO ×4 (04:25→22:00)
[2024-01-19] MEDS: Acetaminophen 500 MG Tablet 1000 MG PO ×3 (06:06→21:33)
[2024-01-19] MEDS: Levothyroxine 88 MCG Tablet PO (06:07)
[2024-01-19 06:52] LABS: Hematocrit 25.9 % (37-47); Hemoglobin 8.5 g/dL (12.0-15.0); Mean Corp Hgb Conc 32.8 g/dL (32-36); Mean Corpuscular Hgb 31.3 pg (27.0-32.0); Mean Corpuscular Volume 95.2 fL (81-99); Mean Platelet Vol. 9.3 fl (6.2-12.0); Platelet Count 189 K/mm3 (150-450); RBC Distribution Width SD 44.5 fl (35.1-43.9); Red Blood Count 2.72 M/mm3 (4.2-5.4); White Blood Count 10.6 K/mm3 (4.4-11.0)
--- NOTE | 2024-01-19 07:00 | RAD_ITS ---
STUDY: X-RAY - LUMBAR SPINE REASON FOR EXAM: Female, 83 years old. S/p lumbar fusion TECHNIQUE: 2 view(s) of the lumbar spine were obtained. COMPARISON: Comparison is made with prior study October 08, 2023. FINDINGS: Normal lumbar lordosis. There is a mild dextroscoliosis of the lumbar spine. There is a normal alignment of the vertebrae. The patient is status post multilevel laminectomy and interpedicular screw fixation at the L3-L4, L4-L5 and L5-S1 levels. There is evidence of prior vertebroplasty of the L2 vertebrae. There is multi-level degenerative disc disease with multi-level disc space narrowing. There is mild atherosclerotic calcification of the abdominal aorta without a demonstrated aneurysm. RAD/Lumbar Spine 2 or 3 Views IMPRESSION: Degenerative changes of the spine, as detailed above. Status post screw and mani fixation at the L2-L3, L3-L4, L4-L5 and L5-S1 levels. Prior vertebroplasty of the L2 vertebrae. Electronically Signed: Josias Gamez MD at 14:09 EDT ,
[2024-01-19 07:19] LABS: Anion Gap 5 (5-15); BUN 15 mg/dL (7-18); Calcium,Total 7.8 mg/dL (8.5-10.1); Chloride 105 mmol/L (98-107); Creatinine, Serum 0.94 mg/dL (0.55-1.02); EST Glomerular Filtration Rate 61 mL/min (>60); Est Glom Filt Rate - Afr Amer 73 mL/min (>60); Glucose 107 mg/dL (74-106); Sodium Level 134 mmol/L (136-145)
[2024-01-19] MEDS: Bisacodyl 5 MG Tablet 10 MG PO (08:30)
[2024-01-19] MEDS: Calcium Carb/Vitamin D 1 TABLET Tablet PO (08:31)
[2024-01-19] MEDS: Pantoprazole Sodium 40 MG Tablet PO (10:58)
[2024-01-19] MEDS: Cholecalciferol (VIT D3) 25 MCG TABLET (1,000 UNITS) 50 MCG PO (10:58)
[2024-01-19] MEDS: Estradiol 0.5 MG Tablet PO (10:58)
[2024-01-19] MEDS: Senna/Docusate Sodium 1 Tablet 2 TABLET PO (10:59)
[2024-01-19] MEDS: Sertraline 100 MG Tablet PO (10:59)
--- NOTE | 2024-01-19 12:25 | PCM.PN.ORT ---
Subjective Subjective Seen with Dr. Cortez. Patient was laying supine in bed with the head elevated upon arrival. Last night she had increased pain however currently she is doing well. According to patient and family she has passed flatus. She has ambulated with PT and was able to do the stairs in therapy. She has also been able to walk to the bathroom with the standard walker. Plan is to return home tomorrow. Objective Data Objective Data Vital Signs: Vital Signs Temp Pulse Resp BP Pulse Ox O2 Del Method O2 Flow Rate 98.3 F 85 16 108/46 L 97 Room Air 4 01/19/24 08:06 01/19/24 08:06 01/19/24 08:06 01/19/24 08:06 01/19/24 08:06 01/19/24 09:45 01/18/24 18:23 Oxygen Flow Rate (L/min) 4 Oxygen Delivery Method Room Air Weight: 173 lb 6.4 oz Body Mass Index (BMI) 32.8 Intake & Output: Intake and Output for Last 24 Hours 01/17/24 01/18/24 01/19/24 23:59 23:59 23:59 Intake Total 755.5 / 755.5 560 / 560 Output Total 450 / 450 Balance 305.5 / 305.5 560 / 560 Lab / Micro Data 01/19/24 06:37 01/19/24 06:37 Labs: Laboratory Results - last 24 hr 01/19/24 06:37: WBC 10.6, RBC 2.72 L, Hgb 8.5 L, Hct 25.9 L, MCV 95.2, MCH 31.3, MCHC 32.8, RDW Std Deviation 44.5 H, RDW Coeff of María 13.0, Plt Count 189, MPV 9.3, Sodium 134 L, Potassium 4.0, Chloride 105, Carbon Dioxide 24.0, Anion Gap 5, BUN 15, Creatinine 0.94, Estim Creat Clear Calc 42.30, Est GFR (MDRD) Af Amer 73, Est GFR (MDRD) Non-Af 61, BUN/Creatinine Ratio 16.0, Glucose 107 H, Calcium 7.8 L Micro: Microbiology 01/04/24 12:36 Swab (Method) Nasal Screen MRSA/MSSA - Final Physical Exam Narrative Tegaderm and gauze are intact over belly and back incisions. Neurological exam of the lower extremities shows 5x5 power. Normal sensations across all dermatomes. Const alert, oriented x3 and no apparent distress General Appearance: cooperative Assessment & Plan Assessment/Plan (1) S/P lumbar fusion: PLAN: Plan Plan is for patient to stay another night for pain management. Encouraged patient to increase time between doses to make her return home easier. She has good balance and safety and has walked with PT and encouraged her to move as much as possible to help with pain and healing. PT recommends that the patient is safe for discharge home with assistance. Has been ambulating with a walker and has a walker at home. She has passed flatus and so she will be advanced to a regular diet. Expected discharge tomorrow morning. Patient and family is in agreement.
--- NOTE | 2024-01-19 14:07 | CASEMGMT ---
KATHERINE MORRISON Assessment Face to Face with patient for initial transition planning/care coordination assessment. KATHERINE MORRISON introduced self and role at [facility], pt voices understanding. Pt is A&Ox4 and is resting comfortably in the chair and is calm. Care providers, pharmacy, and demographics verified. JOHNY Strata: 1 PCP: Raymundo Specialists: Diego (Ortho) Preferred Pharmacy: [facility] Insurance: [facility] Prescription Benefit:Yes LNOK: Darryl Shaikh (H), Diego Multani (Son) Living Arrangements: Pt lives with her in a single story condo with one small step to enter ADLs/IADLs: Ind Transportation: Self, DME: CPAP @ HS with no additional oxygen. FWW. Walk in shower with grab bars. Denies further needs HHC/SNF: Denies Hx or needs Pt?s goal: Home Plan: Home with pt . Pt did well with PT and OT and denies further concerns regarding discharge planning. Pt states that she does not need HHC or OP Tx. Pt states that she plans to walk often at home once she returns. Pt denies further questions or concerns at this time. Sachin Dia RN, CM
--- NOTE | 2024-01-19 17:24 | PN.HOSP_ITS ---
Reason for Visit Reason for Visit: Diagnoses Hypothyroidism, unspecified (01/18/24) Obesity, unspecified (01/18/24) Hyperlipidemia, unspecified (01/18/24) Essential (primary) hypertension (01/18/24) Encounter for other preprocedural examination (01/18/24) Arthrodesis status (01/18/24) Subjective Subjective Patient had some difficulty sitting in the chair due to it being uncomfortable but otherwise no new or acute complaints Objective Data Objective Data Vital Signs: Vital Signs Temp Pulse Resp BP Pulse Ox O2 Del Method O2 Flow Rate 97.7 F L 77 17 108/37 L 98 Room Air 4 01/19/24 13:42 01/19/24 13:42 01/19/24 13:42 01/19/24 13:42 01/19/24 13:42 01/19/24 13:42 01/18/24 18:23 Oxygen Flow Rate (L/min) 4 Oxygen Delivery Method Room Air Weight: 78.653 kg Body Mass Index (BMI) 32.8 Intake & Output: Intake and Output for Last 24 Hours 01/17/24 01/18/24 01/19/24 23:59 23:59 23:59 Intake Total 755.5 / 755.5 1160 / 1160 Output Total 450 / 450 Balance 305.5 / 305.5 1160 / 1160 Lab / Micro Data 01/19/24 06:37 01/19/24 06:37 Labs: Laboratory Results - last 24 hr 01/19/24 06:37: WBC 10.6, RBC 2.72 L, Hgb 8.5 L, Hct 25.9 L, MCV 95.2, MCH 31.3, MCHC 32.8, RDW Std Deviation 44.5 H, RDW Coeff of María 13.0, Plt Count 189, MPV 9.3, Sodium 134 L, Potassium 4.0, Chloride 105, Carbon Dioxide 24.0, Anion Gap 5, BUN 15, Creatinine 0.94, Estim Creat Clear Calc 42.30, Est GFR (MDRD) Af Amer 73, Est GFR (MDRD) Non-Af 61, BUN/Creatinine Ratio 16.0, Glucose 107 H, Calcium 7.8 L Micro: Microbiology 01/04/24 12:36 Swab (Method) Nasal Screen MRSA/MSSA - Final Radiography Diagnostic Testing: Radiology Impression Lumbar Spine X-Ray 01/19/24 07:00 IMPRESSION: Degenerative changes of the spine, as detailed above. Status post screw and mani fixation at the L2-L3, L3-L4, L4-L5 and L5-S1 levels. Prior vertebroplasty of the L2 vertebrae. Electronically Signed: Josias Gamez MD at 14:09 EDT , Physical Exam Narrative General: Alert, oriented, no apparent distress HEENT: Atraumatic, normocephalic Eyes: extraocular movements grossly intact Neck: Supple Respiratory: normal respiratory effort Cardiovascular: no edema appreciated GI: nondistended Extremities: Moving all extremities Neuro: No overt focal neurological deficits Psych: Cooperative Assessment & Plan Assessment/Plan (1) Essential hypertension: (2) Hyperlipidemia: QUALIFIERS: Hyperlipidemia type: unspecified Qualified Code(s): E 78.5 - Hyperlipidemia, unspecified (3) Hypothyroid: QUALIFIERS: Hypothyroidism type: unspecified Qualified Code(s): E 03.9 - Hypothyroidism, unspecified (4) Obesity (BMI 30.0-34.9): PLAN: Plan # Third lumbar fusion - history of low back pain and pseudoarthrosis of the lumbar spine with history of lumbar & cervical fusion (2001) and 2nd Lumbar Fusion (2021) -Admitted 01/17 for third lumbar fusion with Dr. Cortez -Management per primary -PT/OT #GERD -Continue PPI #CHARLENE -Continue home NIPPV if patient desires or if patient will have prolonged hospitalization # History of paroxysmal A-fib -With previous ablation, not on rate control or anticoagulation -In normal sinus rhythm #Hypothyroidism -Continue Synthroid #DVT ppx: Timing per Ortho Prabha Diaz MD Charges/Coding Visit Charges Inpatient E&M: 49982 Subs Hosp L1
[2024-01-19] MEDS: Atorvastatin Calcium 40 MG Tablet PO (21:32)
[2024-01-20] MEDS: Methocarbamol 500 MG Tablet 1000 MG PO ×3 (02:54→13:44)
[2024-01-20] MEDS: oxyCODONE 5 MG Tablet PO ×3 (02:54→13:43)
[2024-01-20 02:58] VITALS: BP 109/53; PULSE 100; RESP 16; TEMP 36.8; O2SAT 100
[2024-01-20] MEDS: Levothyroxine 88 MCG Tablet PO (04:24)
[2024-01-20] MEDS: Acetaminophen 500 MG Tablet 1000 MG PO ×2 (04:24→13:44)
[2024-01-20] MEDS: Meloxicam 15 MG Tablet PO (04:26)
[2024-01-20 06:59] LABS: Hemoglobin 7.9 g/dL (12.0-15.0); Mean Corp Hgb Conc 32.9 g/dL (32-36); Mean Corpuscular Hgb 31.5 pg (27.0-32.0); Mean Corpuscular Volume 95.6 fL (81-99); Mean Platelet Vol. 9.4 fl (6.2-12.0); Platelet Count 133 K/mm3 (150-450); RBC Distribution Width CV 12.9 % (11.6-14.6); RBC Distribution Width SD 45.2 fl (35.1-43.9); Red Blood Count 2.51 M/mm3 (4.2-5.4); White Blood Count 7.1 K/mm3 (4.4-11.0)
[2024-01-20] MEDS: 0.9% NaCl Peripheral Flush Adult/Peds IV (08:46)
[2024-01-20] MEDS: Sodium Ferric Gluconat/Sucrose 250 MG in 0.9% Normal Saline (250mL Bag) 250 ML 135 MG IV (08:47)
[2024-01-20] MEDS: Sertraline 100 MG Tablet PO (08:48)
[2024-01-20] MEDS: Calcium Carb/Vitamin D 1 TABLET Tablet PO (08:48)
[2024-01-20] MEDS: Ascorbic Acid 500 MG Tablet 1000 MG PO (08:48)
[2024-01-20] MEDS: Pantoprazole Sodium 40 MG Tablet PO (08:48)
[2024-01-20] MEDS: Estradiol 0.5 MG Tablet PO (08:48)
[2024-01-20] MEDS: Cholecalciferol (VIT D3) 25 MCG TABLET (1,000 UNITS) 50 MCG PO (08:48)
[2024-01-20 09:00] VITALS: BP 115/44; PULSE 88; RESP 16; TEMP 36.5; O2SAT 94
[2024-01-20] MEDS: Ensure Surgery 237 ML LIQUID PO (09:11)
[2024-01-20] MEDS: 0.9% Saline Lock 10 ML Syringe IV ×2 (09:12→14:38)
[2024-01-20] MEDS: Iron Polysaccharide Complex 150 MG CAPSULE PO (09:15)
[2024-01-20 10:14] VITALS: O2SAT 93
--- NOTE | 2024-01-20 13:10 | PN.HOSP_ITS ---
Reason for Visit Reason for Visit: Diagnoses Hypothyroidism, unspecified (01/18/24) Obesity, unspecified (01/18/24) Hyperlipidemia, unspecified (01/18/24) Essential (primary) hypertension (01/18/24) Encounter for other preprocedural examination (01/18/24) Arthrodesis status (01/18/24) Subjective Subjective Patient overall feeling well today, no shortness of breath or chest pain, still some back stiffness but has been up and moving around. Presently not feeling any lightheadedness, no blood in stool, no abdominal pain, no nausea or vomiting Objective Data Objective Data Vital Signs: Vital Signs Temp Pulse Resp BP Pulse Ox O2 Del Method O2 Flow Rate 97.7 F L 88 16 115/44 L 93 Room Air 4 01/20/24 09:00 01/20/24 09:00 01/20/24 09:00 01/20/24 09:00 01/20/24 10:14 01/20/24 10:14 01/18/24 18:23 Oxygen Flow Rate (L/min) 4 Oxygen Delivery Method Room Air Weight: 78.653 kg Body Mass Index (BMI) 32.8 Intake & Output: Intake and Output for Last 24 Hours 01/18/24 01/19/24 01/20/24 23:59 23:59 23:59 Intake Total 755.5 / 755.5 1510 / 1510 270 / 270 Output Total 450 / 450 Balance 305.5 / 305.5 1510 / 1510 270 / 270 Lab / Micro Data 01/20/24 06:17 01/19/24 06:37 Labs: Laboratory Results - last 24 hr 01/20/24 06:17: WBC 7.1, RBC 2.51 L, Hgb 7.9 L, Hct 24.0 L, MCV 95.6, MCH 31.5, MCHC 32.9, RDW Std Deviation 45.2 H, RDW Coeff of María 12.9, Plt Count 133 L, MPV 9.4 Micro: Microbiology 01/04/24 12:36 Swab (Method) Nasal Screen MRSA/MSSA - Final Radiography Diagnostic Testing: Radiology Impression Lumbar Spine X-Ray 01/19/24 07:00 IMPRESSION: Degenerative changes of the spine, as detailed above. Status post screw and mani fixation at the L2-L3, L3-L4, L4-L5 and L5-S1 levels. Prior vertebroplasty of the L2 vertebrae. Electronically Signed: Josias Gamez MD at 14:09 EDT , Physical Exam Narrative General: Alert, oriented, no apparent distress HEENT: Atraumatic, normocephalic Eyes: Anicteric, normal conjunctiva, extraocular movements grossly intact Neck: Supple Respiratory: Clear to auscultation bilaterally, normal respiratory effort Cardiovascular: Regular rate and rhythm GI: Soft, nontender, nondistended Extremities: No edema Musculoskeletal: Moving all extremities Neuro: No overt focal neurological deficits Skin: No rashes appreciated Psych: Cooperative Assessment & Plan Assessment/Plan (1) Essential hypertension: (2) Hyperlipidemia: QUALIFIERS: Hyperlipidemia type: unspecified Qualified Code(s): E 78.5 - Hyperlipidemia, unspecified (3) Hypothyroid: QUALIFIERS: Hypothyroidism type: unspecified Qualified Code(s): E 03.9 - Hypothyroidism, unspecified (4) Obesity (BMI 30.0-34.9): PLAN: Plan # Anemia postoperatively -Hemoglobin 8.5, previously in the 12 range -No evidence of active or ongoing blood loss -Repeat in the a.m. -01/19: Hemoglobin 7.9, patient asymptomatic, no active bleeding noted and no new complaints. Transfusion threshold for patient would be 7. Will give iron transfusion and start on p.o. iron, given no active/ongoing blood loss noted and patient asymptomatic feel it is reasonable to discharge patient from a medical standpoint on p.o. iron with instructions to follow-up with PCP and have them recheck hemoglobin in 3 to 4 days. # Third lumbar fusion - history of low back pain and pseudoarthrosis of the lumbar spine with history of lumbar & cervical fusion (2001) and 2nd Lumbar Fusion (2021) -Admitted 01/17 for third lumbar fusion with Dr. Cortez -Management per primary -PT/OT -01/19: Management per primary Chronic medical problems: #GERD -Continue PPI #CHARLENE -Continue home NIPPV if patient desires or if patient will have prolonged hospitalization # History of paroxysmal A-fib -With previous ablation, not on rate control or anticoagulation -In normal sinus rhythm #Hypothyroidism -Continue Synthroid #DVT ppx: Timing per Ortho Prabha Diaz MD Charges/Coding Visit Charges Inpatient E&M: 03473 Subs Hosp L1
[2024-01-20] MEDS: Morphine 2 MG/ML Syringe IV (14:37)
[2024-01-20 15:00] VITALS: BP 114/41; PULSE 87; RESP 16; TEMP 37.1; O2SAT 97
--- NOTE | 2024-01-20 16:03 | PHA.DC.MR.R ---
Pharmacy [place] Med Reconciliation Pharmacy Service has performed discharge medication reconciliation for this patient. Medication education papers prepared, patient discharged when counseling attempted. Medications reviewed. The patient's discharge medication list was reviewed for discrepancies and discrepancies were resolved. Medications at Discharge Home Medications calcium carbonate 600 mg-vitamin D3 20 mcg (800 unit) tablet 1 ea PO DAILY SUPPELEMENT 12/04/14 estradiol 0.5 mg tablet 0.5 mg PO DAILY HORMONE 12/04/14 lactase 3,000 unit tablet 1 tab PO PRN PRN unk 12/04/14 clindamycin phosphate 1 % topical gel 1 applic topical BID PRN ROSECA 11/29/19 cholecalciferol (vitamin D3) 50 mcg (2,000 unit) tablet 50 mcg PO DAILY SUPPLEMENT 01/25/20 azelastine 205.5 mcg (0.15 %) nasal spray 2 spray intranasal DAILY PRN breathing 04/17/20 levothyroxine 75 mcg tablet (Synthroid) 88 mcg PO DAILY THYROID 10/11/20 rosuvastatin 20 mg tablet 20 mg PO DAILY CHOLESTEROL 10/11/20 cetirizine 10 mg tablet 10 mg PO DAILY PRN allergies\ 12/05/20 pantoprazole 40 mg tablet,delayed release 40 mg PO DAILY GERD 10/30/22 sertraline 100 mg tablet 100 mg PO QDAY DEPRESSION 09/16/23 meclizine 25 mg tablet 25 mg PO TID PRN dizziness 12/18/23 acetaminophen 500 mg tablet 500 mg PO Q6H #30 tabs 01/20/24 meloxicam 15 mg tablet 15 mg PO DAILY #30 tabs 01/20/24 methocarbamol 500 mg tablet 750 mg (1.5 x 500 mg) PO TID PRN pain/spasms #30 tabs 01/20/24 oxycodone 5 mg tablet 2.5 - 5 mg (0.5 - 1 x 5 mg) PO Q6H PRN pain 7 days #28 tabs 01/20/24 sennosides 8.6 mg-docusate sodium 50 mg tablet (Stimulant Laxative Plus) 2 tab PO BID PRN constipation #30 tabs 01/20/24
== END 2024-01-20 15:50 | disposition home or self-care (01) | DRG 454 ==
PROVIDERS: Anesthesiology; Internal Medicine; Student in an Organized Health Care Education/Training Program; Admitting Provider Orthopaedic Surgery Orthopaedic Surgery of the Spine; PCP Internal Medicine; Referring Provider Orthopaedic Surgery Orthopaedic Surgery of the Spine; Visit Provider Orthopaedic Surgery Orthopaedic Surgery of the Spine
PROC: 0SG10K1 Fusion of 2 or more Lumbar Vertebral Joints with Nonautologous Tissue Substitute, Posterior Approach, Posterior Column, Open Approach (ICD-10-PCS; principal; 2024-01-18 07:00)
DX: M48.062 Spinal stenosis, lumbar region with neurogenic claudication (principal); M48.56XA Collapsed vertebra, not elsewhere classified, lumbar region, initial encounter for fracture; T84.498A Other mechanical complication of other internal orthopedic devices, implants and grafts, initial encounter; M96.0 Pseudarthrosis after fusion or arthrodesis; E03.9 Hypothyroidism, unspecified; I73.9 Peripheral vascular disease, unspecified; I10 Essential (primary) hypertension; Z68.32 Body mass index [BMI] 32.0-32.9, adult; M51.36 Other intervertebral disc degeneration, lumbar region; E78.2 Mixed hyperlipidemia; K58.9 Irritable bowel syndrome, unspecified; G47.33 Obstructive sleep apnea (adult) (pediatric); K21.9 Gastro-esophageal reflux disease without esophagitis; F41.8 Other specified anxiety disorders; M41.9 Scoliosis, unspecified; L71.9 Rosacea, unspecified; Z79.890 Hormone replacement therapy; Z86.16 Personal history of COVID-19; E66.9 Obesity, unspecified; Z98.1 Arthrodesis status; Z79.899 Other long term (current) drug therapy; Y79.2 Prosthetic and other implants, materials and accessory orthopedic devices associated with adverse incidents
CPT/HCPCS: 36415; 72100; 76000; 80048; 82962; 83735; 85027; 86703; 86706; 86708; 86803; 86850; 86900; 86901; 87081; 93005; 94668; 97162; 97166; 97530; 97535; C1713; J7050; J7120; A4216; J2405; J2916; J3475

== ENCOUNTER → 2024-01-22 | Outpatient (CLI) | payer MEDICARE, SELFPAY ==
--- NOTE | 2024-01-22 09:46 | VDLE_ITS ---
Reason For Study: Bilateral leg swelling RIGHT LEFT GSV is normal. GSV is normal. CFV is compressible, spontaneous, phasic, CFV is compressible, spontaneous, phasic, competent and demonstrates normal competent, and demonstrates normal augmentation. augmentation. FV is compressible, spontaneous, phasic, FV is compressible, spontaneous, phasic, competent and demonstrates normal competent and demonstrates normal augmentation. augmentation. POP V is compressible, spontaneous, phasic, POP V is compressible, spontaneous, phasic, competent and demonstrates normal competent and demonstrates normal augmentation. augmentation. T/P Trunk is compressible. T/P Trunk is compressible. PTV is compressible. PTV is compressible. RT PerV is compressible. LT PerV is compressible. Procedure This is a venous duplex using B-mode, color flow and spectral Doppler. Exam performed in department. A preliminary report was called and/or faxed to Dr. Cortez. VL/Venous Duplex US - Chase Extrem Interpretation Summary Deep veins of the bilateral lower extremities are patent and compressible segme ntally. There is no evidence of bilateral lower extremity deep vein thrombosis. The bilateral great saphenous veins appear patent and compressible segmentally. Ordering Physician: Trey Cortez Referring Physician: Lindy Fonseca Performed By: Rica Escalante RVT
== END | disposition home or self-care (01) ==
LOC: CVS 09:40
PROVIDERS: PCP Internal Medicine; Referring Provider Orthopaedic Surgery Orthopaedic Surgery of the Spine; Visit Provider Orthopaedic Surgery Orthopaedic Surgery of the Spine
DX: R22.43 Localized swelling, mass and lump, lower limb, bilateral (principal); Z98.1 Arthrodesis status
CPT/HCPCS: 93970

== ENCOUNTER 2024-02-02 08:27 | Emergency (ER) | payer MEDICARE, SELFPAY ==
[2024-02-02 08:27] VITALS: BP 155/81; PULSE 77; RESP 22; TEMP 36.4; O2SAT 97; BMI 33.2
--- NOTE | 2024-02-02 08:44 | EKG12_ITS ---
Test Reason : EDEMA Blood Pressure : / mmHG Vent. Rate : 070 BPM Atrial Rate : 070 BPM P-R Int : 166 ms QRS Dur : 070 ms QT Int : 408 ms P-R-T Axes : 054 044 036 degrees QTc Int : 440 ms Normal sinus rhythm Normal ECG Confirmed by Yung Nicole [id number]), desk editor MEHNAZ ARENAS ([id number]) on 02/03/2024 10:25:45 AM Referred By: Confirmed By:Yung Nicole
--- NOTE | 2024-02-02 08:44 | VDLE_ITS ---
Reason For Study: LLE Swelling RIGHT LEFT CFV is compressible, spontaneous, phasic, GSV is normal. competent and demonstrates normal CFV is compressible, spontaneous, phasic, augmentation. competent, and demonstrates normal Procedure augmentation. This is a venous duplex using B-mode, color FV is compressible, spontaneous, phasic, flow and spectral Doppler. competent and demonstrates normal Exam performed portable in ED. augmentation. The exam was diagnostic. POP V is compressible, spontaneous, phasic, A preliminary report was called and/or faxed competent and demonstrates normal to Dr. Barrow. augmentation. T/P Trunk is compressible. PTV is compressible. LT PerV is compressible. VL/Venous Duplex US, Unilateral Interpretation Summary Deep veins of the left lower extremity are patent and compressible segmentally. There is no evidence of left lower extremity deep vein thrombosis. Valvular competence appears intac t within the proximal deep venous system on the left . The left great saphenous vein appears patent a nd compressible segmentally. The right common femoral vein is patent and compressible . Ordering Physician: Jhoan Barrow Referring Physician: Lindy Fonseca Performed By: Brad Castellanos, [place]
--- NOTE | 2024-02-02 08:45 | ED.VIS.LOWEX ---
HPI History of Present Illness HPI Narrative: 83-year-old female status post back surgery done on January 17 just over 2 weeks ago. Since the surgery she has had bilateral lower extremity swelling slightly worse in the left than the right. No prior history. No history of venous insufficiency nor kidney disease nor congestive heart failure. She did have a prior history of A-fib but had a prior ablation. Reportedly they did noninvasive studies of her legs 11 days ago which were negative for DVT. She denies any chest pain or shortness of breath. She does have mild tenderness on the front of the left lower leg. Chief Complaint: Edema Informant: patient, spouse/S.O. and family (Daughter in the room.) Onset/Context/Timing Onset: Weeks Context: Gradual Onset Timing: Continuous Current Severity: Mild Maximum Severity: Mild Associated Symptoms Associated Symptoms: Negative for Parasthesia, Weakness or Loss of Funtion Narrative Narrative: 83-year-old female history of prior A-fib with ablation and hypertension status post major back surgery just over 2 weeks ago with bilateral lower extremities swelling since that time. Prior similar symptoms: No Recent Illness/Hospitalization: Yes PFSH PFS Medical History Wears hearing aid Post-menopausal Alcohol use Arthritis Anemia High cholesterol Restless legs Back pain History of IBS Gastric reflux Non-smoker CPAP (continuous positive airway pressure) dependence Leg cramps History of pain when walking History of stress test Cardiology follow-up encounter Acute otitis externa of left ear Foreign body in right auditory canal Anxiety and depression Preoperative evaluation to rule out surgical contraindication Scabies Peripheral arterial disease Left flank pain Cough Maxillary sinusitis, acute Right shoulder pain Flu vaccine need Right knee pain Encounter for screening for COVID-19 URI (upper respiratory infection) Left shoulder pain Paroxysmal supraventricular tachycardia Sinus bradycardia Mixed hyperlipidemia Bilateral carotid artery stenosis Essential hypertension Paroxysmal atrial fibrillation Vertigo Rosacea Depression Hormone deficiency IBS (irritable bowel syndrome) Arthritis Seasonal allergies GERD (gastroesophageal reflux disease) Hypothyroidism Menieres disease Home Medications ?Medication ?Instructions ?Recorded ?Last Taken ?Type calcium carbonate 600 mg-vitamin 1 ea PO DAILY SUPPELEMENT 12/04/14 01/09/21 History D3 20 mcg (800 unit) tablet estradiol 0.5 mg tablet 0.5 mg PO DAILY HORMONE 12/04/14 01/17/24 History lactase 3,000 unit tablet 1 tab PO PRN PRN unk 12/04/14 Unknown History clindamycin phosphate 1 % topical 1 applic topical BID PRN ROSECA 11/29/19 Unknown History gel cholecalciferol (vitamin D3) 50 50 mcg PO DAILY SUPPLEMENT 01/25/20 01/16/24 History mcg (2,000 unit) tablet azelastine 205.5 mcg (0.15 %) 2 spray intranasal DAILY PRN 04/17/20 01/15/24 History nasal spray breathing rosuvastatin 20 mg tablet 20 mg PO DAILY CHOLESTEROL 10/11/20 01/16/24 History cetirizine 10 mg tablet 10 mg PO DAILY PRN allergies\ 12/05/20 01/09/21 History pantoprazole 40 mg tablet,delayed 40 mg PO DAILY GERD 10/30/22 01/18/24 History release sertraline 100 mg tablet 100 mg PO QDAY DEPRESSION 09/16/23 01/18/24 History meclizine 25 mg tablet 25 mg PO TID PRN dizziness 12/18/23 01/18/24 History acetaminophen 500 mg tablet 500 mg PO Q6H #30 tabs 01/20/24 Unknown Rx meloxicam 15 mg tablet 15 mg PO DAILY #30 tabs 01/20/24 Unknown Rx methocarbamol 500 mg tablet 750 mg (1.5 x 500 mg) PO TID PRN 01/20/24 Unknown Rx pain/spasms #30 tabs oxycodone 5 mg tablet 2.5 - 5 mg (0.5 - 1 x 5 mg) PO Q6H 01/20/24 Unknown Rx PRN pain 7 days #28 tabs sennosides 8.6 mg-docusate sodium 2 tab PO BID PRN constipation #30 01/20/24 Unknown Rx 50 mg tablet (Stimulant Laxative tabs Plus) diazepam 5 mg tablet (Valium) 5 mg PO Q6H PRN pain/spasms #28 01/22/24 Unknown Rx tabs gabapentin 100 mg capsule 100 mg PO QHS #30 caps 01/31/24 Unknown Rx buprenorphine 5 mcg/hour weekly topical 02/02/24 Unknown History transdermal patch famotidine 20 mg tablet 20 mg PO DAILY 02/02/24 Unknown History furosemide 20 mg tablet (Lasix) 20 mg PO DAILY 7 days #7 tabs 02/02/24 Unknown Rx hydrocodone-acetaminophen 5-325mg 1 tab PO 4X/DAY 02/02/24 Unknown History 5mg-325mg levothyroxine 88 mcg tablet 88 mcg PO DAILY 02/02/24 Unknown History (Synthroid) naloxone 4 mg/actuation nasal spray spray intranasal X1 02/02/24 Unknown History Allergy/AdvReac Type Severity Reaction Status Date / Time adhesive tape Allergy Unknown unknown Verified 02/02/24 08:29 influenza virus vaccine, Allergy Unknown unknown Verified 02/02/24 08:29 specific neomycin (From Neosporin Allergy Unknown unknown Verified 02/02/24 08:29 ([id number])) bacitracin (From Neosporin Allergy Rash Verified 02/02/24 08:29 ([id number])) bacitracin zinc (From Allergy Rash Verified 02/02/24 08:29 Neosporin ([id number])) neomycin sulfate (From Allergy Rash Verified 02/02/24 08:29 Neosporin ([id number])) polymyxin B (From Neosporin Allergy Rash Verified 02/02/24 08:29 ([id number])) aspirin AdvReac Other Verified 02/02/24 08:29 codeine AdvReac Other Verified 02/02/24 08:29 feathers AdvReac swelling, Verified 02/02/24 08:29 itching morphine AdvReac Other Verified 02/02/24 08:29 Family History Father Alcoholism CVA (cerebral vascular accident) Mother CVA (cerebral vascular accident) Brother CVA (cerebral vascular accident) Sister CVA (cerebral vascular accident) Thyroid disorder Kidney disease Surgical History Hx of right cataract extraction Hx of left cataract extraction History of esophagogastroduodenoscopy (EGD) Hx of colonoscopy History of lumbar fusion Hx of fusion of cervical spine History of cardiac catheterization (~07/08/19) History of bunionectomy History of laminectomy History of cholecystectomy H/O: hysterectomy Social History Smoking Status: Never smoker alcohol intake: current Alcohol type: beer and hard liquor substance use type: does not use caffeine: No what type of physical activity do you participate in: none ROS ROS ED ROS Narrative Denies recent illness. Denies shortness of breath or chest pain. Constitutional Constitutional ED: Denies chills or fever(s) Eyes Eyes: Denies blurry vision ENT ENT ED: Denies ear pain Cardiovascular Cardiovascular: Denies chest pain Respiratory/Chest Respiratory/Chest: Denies cough or dyspnea Gastrointestinal Gastrointestinal: Denies abdominal pain Genitourinary Genitourinary ED: Denies hematuria Musculoskeletal Musculoskeletal: Denies arthralgias Integumentary Denies abscess Neurologic Neurologic: Denies headache(s) Psychiatric Psychiatric: Denies anxiety or depression Endocrine Endocrinology: Denies polydipsia Hematologic/Lymphatic Hematologic/Lymphatic: Denies easy bleeding Allergic/Immunologic Allergic/Immunologic ED: Denies mouth swelling EXAM Physical Exam Narrative Exam Narrative: Well-appearing 83-year-old female. Vital signs are stable afebrile. Pulse ox 97% on room air no hypoxia. She is sitting upright in bed. No acute distress. and daughter in the room. H EENT exam unremarkable. Neck nontender no JVD. Lungs clear to auscultation bilaterally. Heart regular rhythm rate about 75 no murmur. Chest wall ribs nontender. Abdomen soft nontender. Back she has well-healing recent back surgical scars that are dry and clean. No signs of infection or discharge. Lower extremities she has 1-2+ pitting edema both lower extremities left slightly more than the right the left lower wyman is mildly tender but there is not an obvious cellulitis. Normal dorsi and plantarflexion is intact. Calves are nontender without cords. She is awake and alert with no focal motor deficits. Const Vital Signs: 02/02/24 08:27 Temperature 97.6 F L Temperature Source Temporal Pulse Rate 77 Respiratory Rate 22 H Blood Pressure 155/81 H Blood Pressure Mean 105 Pulse Ox 97 Oxygen Delivery Method Room Air Positive well nourished and well developed; Negative for cachectic, contractures or unkempt General Appearance ED: well developed and NAD; Negative for unkempt, cachectic or contractures Nutritional Appearance: Negative for cachectic HEENT Reports moist mucous membranes normocephalic and atraumatic; Negative for trauma or tenderness Eyes PERRL General Eye ED: Negative for other Neck full ROM and supple Thyroid: Negative for tender Lymph Lymphatic: Negative for other Chest Wall inspection of chest normal and palpation of chest normal Resp normal respiratory effort, no retractions and clear to auscultation bilaterally Auscultation: Negative for rales, rhonchi, wheezes or diminished lung sounds Cardio regular rate, regular rhythm, S1 normal heart sound, S2 normal heart sound and no murmurs Rate: Negative for bradycardia or tachycardic Rhythm: Negative for abnormal rhythm Bruits: Negative for other GI non-tender, non-distended and no masses Inspection: Negative for abdominal distention Palpation: soft; Negative for tender, guarding or rebound tenderness present Back/Spine no CVA tenderness Back/Spine Narrative: Well-healing recent back surgical scars that are dry and clean. Extremity full ROM; Negative for normal to inspection Extremity Narrative: Bilateral lower extremity edema 1-2+ left slightly greater than the right. No calf tenderness or cords. General Extremety ED: Yes edema General Extremity: edema Neuro oriented x3, CN's II-XII intact bilaterally and moves all extremities Sensorium / Orientation: alert, oriented to person, oriented to place and oriented to time Motor Exam: strength 5/5 throughout Psych mental status grossly normal Appearance: Negative for unkempt Skin no wounds Lesions: no lesions Trauma: Negative for abrasion, laceration or puncture MDM MDM MDM Narrative Medical decision making narrative: 83-year-old female with bilateral lower extremity swelling for about 2 weeks post recent major back surgery. She is already had an ultrasound done about 11 days ago that was negative. For DVT. She has no history of congestive heart failure. No history of venous insufficiency. No history of kidney or liver disease. Screening labs are being obtained I will we ultrasound the left leg since it is slightly worse. Repeat exam in 9:54 AM. Unchanged. I think this is venous insufficiency. She has a normal cardiac exam. Normal heart rhythm on EKG. Normal chest x-ray without edema or heart enlargement. Her labs are unremarkable her anemia is improving. She will be started on Lasix 20 mg a day. Outpatient follow-up with her primary care physician. Told to monitor blood pressure closely. I had a lengthy discussion with the patient her significant other and daughter at bedside. Outpatient follow-up with her doctor. Should be placed on Lasix 20 mg a day for 1 week. First dose given in ER. History & Record Review Discussion w/independent historian: Patient and Family Additional record(s) reviewed:: Prior inpatient record, Prior outpatient record, Prior ED visit and Prior labs Lab Data Attestation: I reviewed the patient's lab results. Lab results narrative: CBC white count 7. H&H 10.2 and 32.5. She is anemic but it is much improving since her anemia around the time of surgery. Platelet count 333. Electrolytes show sodium 135 gap 5. Normal BUN of 16 creatinine 0.8. Liver enzymes are normal. Alk phos 153. Troponin normal at 4. Chest x-ray and EKG unremarkable. Labs: Laboratory Results - last 24 hr 02/02/24 08:54 WBC 7.3 RBC 3.30 L Hgb 10.2 L Hct 32.5 L MCV 98.5 MCH 30.9 MCHC 31.4 L RDW Std Deviation 51.2 H RDW Coeff of María 14.2 Plt Count 333 MPV 8.5 Immature Gran % (Auto) 0.400 Neut % (Auto) 58.7 Lymph % (Auto) 29.4 [place] % (Auto) 8.9 Eos % (Auto) 1.9 Baso % (Auto) 0.7 Absolute Neuts (auto) 4.3 Absolute Lymphs (auto) 2.15 Nucleated RBC % 0 Sodium 135 L Potassium 4.6 Chloride 104 Carbon Dioxide 26.0 Anion Gap 5 BUN 16 Creatinine 0.83 Estim Creat Clear Calc 48.24 Est GFR (MDRD) Af Amer 84 Est GFR (MDRD) Non-Af 70 BUN/Creatinine Ratio 19.3 Glucose 91 Calcium 9.3 Total Bilirubin 0.50 AST 21 ALT 20 Alkaline Phosphatase 153 H Troponin I High Sens 4 Total Protein 6.8 Albumin 3.5 Globulin 3.3 Albumin/Globulin Ratio 1.1 Radiography Chest X-Ray - ED: 1 View, Read by ED Physician, Normal, Heart, Lungs, Mediastinum, Bony Structures, No Acute Disease and Chronic Changes Diagnostic Testing: Clinical Impression(s) from Imaging Studies Chest X-Ray 02/02/24 09:00 IMPRESSION: Hyperinflation. The lungs are clear. Electronically Signed: Josias Gamez MD at 9:19 EDT , Chest x-ray, portable, single view, interpreted by myself shows no acute abnormality. Normal cardiac silhouette. Normal lung alarcon. No effusions or pulmonary edema. Rhythm Strip Rhythm Strip: Sinus Rhythm Rate: 70 Ectopy: None EKG Initial EKG: Attestation: I personally reviewed and interpreted this EKG as follows: Interpretation: Sinus Rhythm and No Acute Injury Pattern Comments: Normal sinus rhythm rate of 70 no acute signs of [place], ischemia nor dysrhythmia. Discharge Plan Triage Chief Complaint: Edema ED Provider: Jhoan Barrow Dx/Rx/DC Orders Clinical Impression: Edema of both lower extremities due to peripheral venous insufficiency, History of atrial fibrillation, History of hypertension, History of back surgery Instructions: ED Peripheral Edema, Bilateral Prescriptions: New furosemide [Lasix] 20 mg tablet 20 mg PO DAILY 7 Days Qty: 7 0RF No Action clindamycin phosphate 1 % gel 1 applic TOPICAL BID PRN (Reason: ROSECA) meclizine 25 mg tablet 25 mg PO TID PRN (Reason: dizziness) Patient Comments: pt reports she takes TID routine cholecalciferol (vitamin D3) 50 mcg (2,000 unit) tablet 50 mcg PO DAILY azelastine 0.15 % (205.5 mcg) spray,non-aerosol 2 spray INTRANASAL DAILY PRN (Reason: breathing) Rx Instructions: administer into each nostril cetirizine 10 mg tablet 10 mg PO DAILY PRN (Reason: allergies\) rosuvastatin 20 mg tablet 20 mg PO DAILY pantoprazole 40 mg tablet,delayed release (DR/EC) 40 mg PO DAILY Patient Comments: TAKE 1 TABLET BY MOUTH EVERY DAY sertraline 100 mg tablet 100 mg PO QDAY gabapentin 100 mg capsule 100 mg PO QHS Qty: 30 0RF diazepam [Valium] 5 mg tablet 5 mg PO Q6H PRN (Reason: pain/spasms) Qty: 28 0RF lactase 3,000 UNIT tablet 1 tab PO PRN PRN (Reason: unk) Patient Comments: when eating dairy estradiol 0.5 MG tablet 0.5 mg PO DAILY Patient Comments: hormone calcium carbonate-vitamin D3 1 EACH tablet 1 ea PO DAILY Patient Comments: bone health meloxicam 15 mg Tablet 15 mg PO DAILY Qty: 30 0RF methocarbamol 500 mg Tablet 750 mg PO TID PRN (Reason: pain/spasms) Qty: 30 0RF oxycodone 5 mg Tablet 2.5 - 5 mg PO Q6H PRN (Reason: pain) 7 Days Qty: 28 0RF sennosides-docusate sodium [Stimulant Laxative Plus] 8.6-50 mg Tablet 2 tab PO BID PRN (Reason: constipation) Qty: 30 0RF acetaminophen 500 mg Tablet 500 mg PO Q6H Qty: 30 0RF hydrocodone-acetaminophen 5-325 mg tablet 1 tab PO 4X/DAY levothyroxine [Synthroid] 88 mcg tablet 88 mcg PO DAILY famotidine 20 mg tablet 20 mg PO DAILY buprenorphine 5 mcg/hour patch weekly topical naloxone 4 mg/actuation spray,non-aerosol INTRANASAL X1 Primary Care Provider: Lindy Fonseca Referrals: Lindy Fonseca MD [Primary Care Provider] - 1 Week Activity Restrictions/Additional Instructions: You will be put on the medication Lasix which will make you pee a lot. Will try to get rid of the fluid in your legs. Make sure you are up and walking. Take it in the morning so you are not up all night peeing. Watch your blood pressure. If it is below 100 stop taking the Lasix. Follow-up with your doctor ensure you are improving. Any problems return. Elevate your legs when you are not up walking around. Elevate them at night when you are sleeping. Print Language: Tamazight Disposition Disposition: Home, Self Care
[2024-02-02 09:00] LABS: Absolute Lymphocyte Count 2.15 X10^3/uL (0.83-4.51); Absolute Neutrophil Count 4.3 X10^3/uL (2.0-7.7); Basophil# 0.05 X10^3/uL; Basophil% 0.7 % (0-1); Eosinophil# 0.14 X10^3/uL; Eosinophils% 1.9 % (0-5); Hematocrit 32.5 % (37-47); Hemoglobin 10.2 g/dL (12.0-15.0); Lymphocyte # 2.15 X10^3/ul (0.83-4.51); Lymphocyte % 29.4 % (19-41); Mean Corp Hgb Conc 31.4 g/dL (32-36); Mean Corpuscular Hgb 30.9 pg (27.0-32.0); Mean Corpuscular Volume 98.5 fL (81-99); Mean Platelet Vol. 8.5 fl (6.2-12.0); Monocyte# 0.65 X10^3/uL; Monocyte% 8.9 % (0-10); NRBC Flagged by Analyzer 0 % (0-5); Neutrophil # 4.29 X10^3/uL (2.7-7.7); Neutrophil % 58.7 % (47-70); Platelet Count 333 K/mm3 (150-450); RBC Distribution Width CV 14.2 % (11.6-14.6); RBC Distribution Width SD 51.2 fl (35.1-43.9); White Blood Count 7.3 K/mm3 (4.4-11.0)
--- NOTE | 2024-02-02 09:00 | RAD_ITS ---
STUDY: X-RAY CHEST REASON FOR EXAM: Female, 83 years old. Leg edema TECHNIQUE: Single AP portable view of the chest. COMPARISON: Comparison is made with prior study dated September 17, 2023. FINDINGS: Hyperinflation. Lungs are clear. There is no demonstrated pleural abnormality. Normal size heart. Normal mediastinum and lyle. Normal visualized pulmonary arteries. Normal visualized aortic arch and descending thoracic aorta. Normal visualized thoracic spine. Prior lower cervical fusion. There is no demonstrated abnormality of the visualized soft tissue structures of the upper abdomen. RAD/Chest 1 View (Portable) IMPRESSION: Hyperinflation. The lungs are clear. Electronically Signed: Josias Gamez MD at 9:19 EDT ,
[2024-02-02 09:19] LABS: ALB/GLOB Ratio 1.1 RATIO (0.9-2.4); AST(SGOT) 21 U/L (15-37); Alanine Aminotransfer ALT/SGPT 20 U/L (13-56); Albumin, Serum 3.5 g/dL (3.2-5.0); Alkaline Phosphatase 153 U/L (45-117); Anion Gap 5 (5-15); BUN 16 mg/dL (7-18); BUN/Creat Ratio 19.3 RATIO (10-20); Calcium,Total 9.3 mg/dL (8.5-10.1); Chloride 104 mmol/L (98-107); Creatinine, Serum 0.83 mg/dL (0.55-1.02); EST Glomerular Filtration Rate 70 mL/min (>60); Est Glom Filt Rate - Afr Amer 84 mL/min (>60); Estimated Creatinine Clearance 48.24 ml/min; Globulin 3.3 g/dL (2.2-4.2); Glucose 91 mg/dL (74-106); Potassium 4.6 mmol/L (3.5-5.1); Protein, Total 6.8 g/dL (6.4-8.2); Sodium Level 135 mmol/L (136-145); Troponin-I HS 4 pg/mL (3.0-54.0)
[2024-02-02 10:17] VITALS: BP 163/62; PULSE 70; RESP 18; TEMP 36.8; O2SAT 99
[2024-02-02 10:27] VITALS: BP 162/63
[2024-02-02] MEDS: Furosemide 20 MG Tablet PO (10:35)
== END 2024-02-02 10:36 | disposition home or self-care (01) ==
PROVIDERS: Emergency Provider Emergency Medicine; PCP Internal Medicine; Visit Provider Emergency Medicine
DX: I87.2 Venous insufficiency (chronic) (peripheral) (principal); I48.0 Paroxysmal atrial fibrillation; I10 Essential (primary) hypertension; E78.2 Mixed hyperlipidemia; Z79.899 Other long term (current) drug therapy
CPT/HCPCS: 71045; 80053; 84484; 85025; 93005; 93971; 99282; A4216

== ENCOUNTER 2024-02-10 14:37 | Emergency (ER) | payer MEDICARE, SELFPAY ==
[2024-02-10 14:38] VITALS: BP 149/54; PULSE 87; RESP 22; TEMP 36.6; O2SAT 95; BMI 34.2
--- NOTE | 2024-02-10 15:28 | CT_ITS ---
INDICATION: diffuse abd pain EXAMINATION: CT Abdomen And Pelvis W/ Contrast Injection TECHNIQUE: Helically acquired images were obtained of the abdomen and pelvis after IV contrast. A radiation dose optimization technique was used for this scan. IV Contrast dosage and agent: IV 100mL [id number]-300 Oral contrast: None. COMPARISON: None. FINDINGS: Visualized lung bases: Unremarkable Liver: Unremarkable Gallbladder: Unremarkable Spleen: Unremarkable Pancreas: Unremarkable Adrenal Glands: Unremarkable Kidneys: Unremarkable Vasculature: Severe aortoiliac atherosclerotic disease. GI Tract: Scattered diverticula throughout the colon without evidence of inflammation. Lymphadenopathy: None Peritoneum: No ascites. Bladder: Unremarkable Reproductive organs: Unremarkable Bones/Soft tissues: Postsurgical changes of the lumbar spine. CT/Abdomen/Pelvis W IV Cont ONLY IMPRESSION: No acute abnormalities in the abdomen or pelvis. Electronically Signed: Amol Carvalho MD at 18:24 EDT ,
--- NOTE | 2024-02-10 15:30 | EDS_ITS ---
HPI History of Present Illness Chief Complaint: Weakness Informant: patient, spouse/S.O. and family Narrative Narrative: 83-year-old female very weak after having nausea, vomiting, diarrhea all morning. Started today. Nonbilious nonbloody emesis, diffuse periumbilical abdominal pain feels like mostly cramping, cold chills, and loose nonbloody nonmelanotic diarrhea, the last bout was watery. 6 bouts or so today. Recently was on Lasix because she was having edema in both of her legs after having back surgery 3 weeks ago. She opted not to go to inpatient rehab. She had a major back surgery, with hardware removed, family states it was a 9-hour surgery. The daughter is here with the patient and her saying this is the fourth or fifth visit to either urgent care or ER for various things, in addition to visits to the surgeon and pain management; the abdominal discomfort and vomiting/diarrhea is new today, but she has been having left knee and leg pain, bilateral lower extremity edema all since the surgery, they have had a couple different venous Doppler studies that were negative and has been put on Lasix, which helped the last pill was yesterday morning. There is redness in the left leg and the daughter thinks it is a little worse today, but it has not been spreading quickly if it has at all. She has been on no antibiotics after surgery or before hand except for what ever she received during surgery. She does not have a history of C. difficile that they know of. No known sick contacts. No medication changes since surgery. No travel out of the region. She is having low back pain, she has a pain patch as well as oral hydrocodone, but she has been able to get up and get around. In addition to being stressed about all of her recent issues the daughter is asking for home health. [facility] Medical History Wears hearing aid Post-menopausal Alcohol use Arthritis Anemia High cholesterol Restless legs Back pain History of IBS Gastric reflux Non-smoker CPAP (continuous positive airway pressure) dependence Leg cramps History of pain when walking History of stress test Cardiology follow-up encounter Acute otitis externa of left ear Foreign body in right auditory canal Anxiety and depression Preoperative evaluation to rule out surgical contraindication Scabies Peripheral arterial disease Left flank pain Cough Maxillary sinusitis, acute Right shoulder pain Flu vaccine need Right knee pain Encounter for screening for COVID-19 URI (upper respiratory infection) Left shoulder pain Paroxysmal supraventricular tachycardia Sinus bradycardia Mixed hyperlipidemia Bilateral carotid artery stenosis Essential hypertension Paroxysmal atrial fibrillation Vertigo Rosacea Depression Hormone deficiency IBS (irritable bowel syndrome) Arthritis Seasonal allergies GERD (gastroesophageal reflux disease) Hypothyroidism Menieres disease Home Medications ?Medication ?Instructions ?Recorded ?Last Taken ?Type calcium 600 mg (as 1 ea PO DAILY SUPPELEMENT 12/04/14 01/09/21 History carbonate)-vitamin D3 20 mcg (800 unit) tablet estradiol 0.5 mg tablet 0.5 mg PO DAILY HORMONE 12/04/14 01/17/24 History lactase 3,000 unit tablet 1 tab PO PRN PRN unk 12/04/14 Unknown History clindamycin phosphate 1 % topical 1 applic topical BID PRN ROSECA 11/29/19 Unknown History gel cholecalciferol (vitamin D3) 50 50 mcg PO DAILY SUPPLEMENT 01/25/20 01/16/24 History mcg (2,000 unit) tablet azelastine 205.5 mcg (0.15 %) 2 spray intranasal DAILY PRN 04/17/20 01/15/24 History nasal spray breathing rosuvastatin 20 mg tablet 20 mg PO DAILY CHOLESTEROL 10/11/20 01/16/24 History cetirizine 10 mg tablet 10 mg PO DAILY PRN allergies\ 12/05/20 01/09/21 History pantoprazole 40 mg tablet,delayed 40 mg PO DAILY GERD 10/30/22 01/18/24 History release sertraline 100 mg tablet 100 mg PO QDAY DEPRESSION 09/16/23 01/18/24 History meclizine 25 mg tablet 25 mg PO TID PRN dizziness 12/18/23 01/18/24 History acetaminophen 500 mg tablet 500 mg PO Q6H #30 tabs 01/20/24 Unknown Rx meloxicam 15 mg tablet 15 mg PO DAILY #30 tabs 01/20/24 Unknown Rx methocarbamol 500 mg tablet 750 mg (1.5 x 500 mg) PO TID PRN 01/20/24 Unknown Rx pain/spasms #30 tabs sennosides 8.6 mg-docusate sodium 2 tab PO BID PRN constipation #30 01/20/24 Unknown Rx 50 mg tablet (Stimulant Laxative tabs Plus) gabapentin 100 mg capsule 100 mg PO QHS #30 caps 01/31/24 Unknown Rx buprenorphine 5 mcg/hour weekly 1 patch topical Q7D 02/02/24 Unknown History transdermal patch famotidine 20 mg tablet 20 mg PO DAILY 02/02/24 Unknown History hydrocodone-acetaminophen 5-325mg 1 tab PO 4X/DAY 02/02/24 Unknown History 5mg-325mg levothyroxine 88 mcg tablet 88 mcg PO DAILY 02/02/24 Unknown History (Synthroid) naloxone 4 mg/actuation nasal spray 1 spray intranasal X1 PRN opioid 02/02/24 Unknown History overdose cephalexin 500 mg capsule 500 mg PO Q6 #40 CAPSULES 02/10/24 Unknown Rx Allergy/AdvReac Type Severity Reaction Status Date / Time adhesive tape Allergy Unknown unknown Verified 02/10/24 14:44 influenza virus vaccine, Allergy Unknown unknown Verified 02/10/24 14:44 specific neomycin (From Neosporin Allergy Unknown unknown Verified 02/10/24 14:44 ([id number])) bacitracin (From Neosporin Allergy Rash Verified 02/10/24 14:44 ([id number])) bacitracin zinc (From Allergy Rash Verified 02/10/24 14:44 Neosporin ([id number])) neomycin sulfate (From Allergy Rash Verified 02/10/24 14:44 Neosporin ([id number])) polymyxin B (From Neosporin Allergy Rash Verified 02/10/24 14:44 ([id number])) aspirin AdvReac Other Verified 02/10/24 14:44 codeine AdvReac Other Verified 02/10/24 14:44 feathers AdvReac swelling, Verified 02/10/24 14:44 itching morphine AdvReac Other Verified 02/10/24 14:44 Family History Father Alcoholism CVA (cerebral vascular accident) Mother CVA (cerebral vascular accident) Brother CVA (cerebral vascular accident) Sister CVA (cerebral vascular accident) Thyroid disorder Kidney disease Surgical History Hx of right cataract extraction Hx of left cataract extraction History of esophagogastroduodenoscopy (EGD) Hx of colonoscopy History of lumbar fusion Hx of fusion of cervical spine History of cardiac catheterization (~07/08/19) History of bunionectomy History of laminectomy History of cholecystectomy H/O: hysterectomy Social History Smoking Status: Never smoker alcohol intake: current Alcohol type: beer and hard liquor substance use type: does not use caffeine: No what type of physical activity do you participate in: none ROS ROS ED Constitutional Constitutional ED: Reports chills, fatigue, fever(s) and subjective Eyes Eyes: Denies change in vision or diplopia ENT ENT ED: Denies rhinorrhea or sore throat Cardiovascular Cardiovascular: Reports fatigue and leg edema; Denies chest pain, lightheadedness, palpitations or syncope Respiratory/Chest Respiratory/Chest: Denies cough or dyspnea Gastrointestinal Gastrointestinal: Reports abdominal pain, diarrhea, nausea and vomiting; Denies melena Genitourinary Genitourinary ED: Denies dysuria or hematuria Musculoskeletal Musculoskeletal: Reports as per HPI, back pain and extremity pain; Denies neck pain Integumentary Denies abscess or rash Neurologic Neurologic: Denies headache(s), paresthesias or weakness Psychiatric Psychiatric: Denies anxiety or suicidal thoughts EXAM Physical Exam Const Vital Signs: 02/10/24 14:38 02/10/24 14:42 02/10/24 16:37 Temperature 97.8 F Temperature Source Oral Pulse Rate 87 90 Respiratory Rate 22 H 16 Respiratory Pattern Normal Blood Pressure 149/54 H 140/63 H Blood Pressure Mean 85 88 Pulse Ox 95 02/10/24 18:00 Temperature Temperature Source Pulse Rate 96 Respiratory Rate 18 Respiratory Pattern Blood Pressure 139/43 H Blood Pressure Mean 75 Pulse Ox Positive well nourished and well developed General Appearance ED: well developed and NAD HEENT Reports moist mucous membranes normocephalic and atraumatic Eyes PERRL and EOMs intact bilaterally Neck full ROM and supple Resp normal respiratory effort and clear to auscultation bilaterally Cardio regular rate and regular rhythm GI non-distended GI Narrative: Diffuse tenderness, nonfocal. No guarding or rebound. Auscultation: hyperactive bowel sounds Palpation: soft Back/Spine no CVA tenderness General Back: other FROM with discomfort but able Extremity Extremity Narrative: Warm blanching erythema to the medial aspect of the left lower leg about senior care up the medial calf, also into the medial foot. All tender. No subcutaneous emphysema or abscess or obvious nidus for infection. Full range of motion of the knee and ankle without difficulty. No knee effusion. No lymphangitis. No other calf tenderness. Symmetric edema to both ankles. General Extremety ED: Yes edema and tenderness; Negative for pulses abnormal General Extremity: edema; Negative for pulses abnormal Neuro oriented x3, CN's II-XII intact bilaterally and no sensory deficits noted Sensorium / Orientation: awake and alert Motor Exam: strength 5/5 throughout Psych mental status grossly normal Skin no wounds Skin Narrative: Tender erythema that is warm to the left lower leg otherwise no rashes or lesions. See above. MDM MDM MDM Narrative Medical decision making narrative: Obtained labs including liver and lipase as well as a lactic acid considering mesenteric ischemia, although it is normal except for mildly elevated alkaline phosphatase which is nonspecific and the vomiting patient, her creatinine is 1.10 with a slightly elevated BUN, and she has mild leukocytosis. She was given IV fluids, Zofran, and sublingual Levsin. On reevaluation she feels much better. She is no longer having chills, she did not develop a fever here. She tells me that the intermittent chills she has been having has been for several days, and preceded the vomiting and diarrhea today. She and family then proceed to tell me that she has a history of irritable bowel syndrome and she has had pain and diarrhea like this in the past. She thinks it may be related. I more concerned about the redness on her left lower leg where she is having pain and it is warm and tender, may be consistent with cellulitis. When I discussed this with the patient and family, they state that since she was on the Lasix, which has probably caused her elevated creatinine, the edema in her legs is much better but the daughter states that the erythema looks similar or may be a little worse/proximal to her. It is possible this is the source of her chills and leukocytosis. I think reasonable to try her on an antibiotic. We discussed the pros and cons of this, as well as the risks of not putting her on antibiotics. They are in agreement with me with trying this and would like to try the antibiotics. I understand that there is possibility of making the diarrhea worse, and that viral and bacterial infections in addition to C. difficile since she presumably received antibiotics while she was in the operating room 3 weeks ago, are all in the differential. She was not able to produce stool for us to send for testing here which we intended to do if possible. We did perform a CT of the abdomen/pelvis however, I reviewed the imaging and the report which I agree with, it is negative for any acute, which is not surprising based on the above information. In addition I also performed cardiac testing in the form of EKG, troponin, BNP given the edema she was having in her legs postoperatively, and it is all normal. I offered admission based on her functional status and/or ability to perform ADLs and/or family's ability to help, they all declined admission based on functional status only at this time. They would like home health evaluation which I think is reasonable to request. We do not have social work in the ER today. I discussed all this with the physician on-call to try to expedite that for them, and we will send her home on cephalexin and she knows to take a probi otic twice daily while on the antibiotic if possible. Lab Data Attestation: I reviewed the patient's lab results. Labs: Laboratory Results - last 24 hr 02/10/24 02/10/24 15:50 17:32 WBC 13.4 H RBC 3.57 L Hgb 11.1 L Hct 34.0 L MCV 95.2 MCH 31.1 MCHC 32.6 RDW Std Deviation 45.2 H RDW Coeff of María 12.9 Plt Count 236 MPV 8.7 Immature Gran % (Auto) 0.400 Neut % (Auto) 90.9 H Lymph % (Auto) 4.1 L [place] % (Auto) 4.3 Eos % (Auto) 0.1 Baso % (Auto) 0.2 Absolute Neuts (auto) 12.1 H Absolute Lymphs (auto) 0.55 L Nucleated RBC % 0 Sodium 130 L Potassium 4.7 Chloride 98 Carbon Dioxide 27.0 Anion Gap 5 BUN 19 H Creatinine 1.10 H Estim Creat Clear Calc 36.97 Est GFR (MDRD) Af Amer 61 Est GFR (MDRD) Non-Af 50 L BUN/Creatinine Ratio 17.3 Glucose 93 Lactic Acid 1.8 Calcium 9.2 Total Bilirubin 0.60 AST 28 ALT 28 Alkaline Phosphatase 140 H Troponin I High Sens 6 B-Natriuretic Peptide 51.9 Total Protein 6.9 Albumin 3.5 Globulin 3.4 Albumin/Globulin Ratio 1.0 Lipase 24 Urine Color Yellow Urine Clarity Sl. Cloudy Urine pH 7.0 Ur Specific [place] 1.005 Urine Protein Negative Urine Glucose (UA) Normal Urine Ketones Negative Urine Occult Blood Negative Urine Nitrite Negative Urine Bilirubin Negative Urine Urobilinogen Normal Ur Leukocyte Esterase 25 H Urine RBC 0 SEEN Urine WBC 0-5 SEEN Ur Squamous Epith Cells 0-5 SEEN Ur Transition Epith Cell 0-5 SEEN Urine Bacteria RARE Urine Mucus 0 SEEN Radiography Diagnostic Testing: Clinical Impression(s) from Imaging Studies Abdomen/Pelvis CT 02/10/24 15:28 IMPRESSION: No acute abnormalities in the abdomen or pelvis. Electronically Signed: Amol Carvalho MD at 18:24 EDT , Rhythm Strip Rhythm Strip: Sinus Rhythm Rate: 83 Ectopy: None EKG Initial EKG: Attestation: I personally reviewed and interpreted this EKG as follows: Interpretation: Sinus Rhythm and No Acute Injury Pattern Prior EKG tracings: available for review Prior: Unchanged Management Discussion w/another healthcare provider: PCP (SANTY Gaffney) Discharge Plan Triage Chief Complaint: Weakness ED Provider: Justin Yoder Dx/Rx/DC Orders Clinical Impression: Cellulitis of left lower leg, Edema of both lower extremities, Postoperative back pain, Nausea vomiting and diarrhea, Diffuse abdominal pain, Hx of irritable bowel syndrome Instructions: ED Cellulitis, ED Vomit Diarrhea Nonspec Adult Prescriptions: New cephalexin 500 mg capsule 500 mg PO Q6 Qty: 40 0RF No Action clindamycin phosphate 1 % gel 1 applic TOPICAL BID PRN (Reason: ROSECA) meclizine 25 mg tablet 25 mg PO TID PRN (Reason: dizziness) Patient Comments: pt reports she takes TID routine cholecalciferol (vitamin D3) 50 mcg (2,000 unit) tablet 50 mcg PO DAILY azelastine 0.15 % (205.5 mcg) spray,non-aerosol 2 spray INTRANASAL DAILY PRN (Reason: breathing) Rx Instructions: administer into each nostril cetirizine 10 mg tablet 10 mg PO DAILY PRN (Reason: allergies\) rosuvastatin 20 mg tablet 20 mg PO DAILY pantoprazole 40 mg tablet,delayed release (DR/EC) 40 mg PO DAILY Patient Comments: TAKE 1 TABLET BY MOUTH EVERY DAY sertraline 100 mg tablet 100 mg PO QDAY gabapentin 100 mg capsule 100 mg PO QHS Qty: 30 0RF lactase 3,000 UNIT tablet 1 tab PO PRN PRN (Reason: unk) Patient Comments: when eating dairy estradiol 0.5 MG tablet 0.5 mg PO DAILY Patient Comments: hormone calcium carbonate-vitamin D3 1 EACH tablet 1 ea PO DAILY Patient Comments: bone health meloxicam 15 mg Tablet 15 mg PO DAILY Qty: 30 0RF methocarbamol 500 mg Tablet 750 mg PO TID PRN (Reason: pain/spasms) Qty: 30 0RF sennosides-docusate sodium [Stimulant Laxative Plus] 8.6-50 mg Tablet 2 tab PO BID PRN (Reason: constipation) Qty: 30 0RF acetaminophen 500 mg Tablet 500 mg PO Q6H Qty: 30 0RF hydrocodone-acetaminophen 5-325 mg tablet 1 tab PO 4X/DAY levothyroxine [Synthroid] 88 mcg tablet 88 mcg PO DAILY famotidine 20 mg tablet 20 mg PO DAILY buprenorphine 5 mcg/hour patch weekly 1 patch topical Q7D naloxone 4 mg/actuation spray,non-aerosol 1 spray INTRANASAL X1 PRN (Reason: opioid overdose) Primary Care Provider: Lindy Fonseca Referrals: Lindy Fonseca MD [Primary Care Provider] - Activity Restrictions/Additional Instructions: Make sure you are taking a probiotic twice daily while on the antibiotic. Keep an eye on the redness of your left leg to see if the antibiotic makes a difference. Follow-up with your doctor when able/scheduled. They should be in contact with you regarding home health evaluation. Print Language: Azeri Disposition Disposition: Home, Self Care
--- NOTE | 2024-02-10 15:39 | EKG12_ITS ---
Test Reason : DIZZINESS Blood Pressure : / mmHG Vent. Rate : 083 BPM Atrial Rate : 083 BPM P-R Int : 168 ms QRS Dur : 074 ms QT Int : 400 ms P-R-T Axes : 066 049 060 degrees QTc Int : 470 ms Normal sinus rhythm Normal ECG Confirmed by MILLI ALEGRIA, PATRICIA ([id number]), market editor MEHNAZ ARENAS ([id number]) on 02/12/2024 11:44:08 AM Referred By: Confirmed By:PATRICIA MORLEY MD
[2024-02-10] MEDS: Hyoscyamine Sulfate 0.125 MG Tablet SL (15:59)
[2024-02-10] MEDS: Ondansetron 4 MG/2 ML Vial IV (15:59)
[2024-02-10] MEDS: 0.9% Normal Saline (1000mL) 1,000 ML 125 ML IV (15:59)
[2024-02-10 16:07] LABS: Absolute Lymphocyte Count 0.55 X10^3/uL (0.83-4.51); Absolute Neutrophil Count 12.1 X10^3/uL (2.0-7.7); Basophil# 0.03 X10^3/uL; Basophil% 0.2 % (0-1); Eosinophil# 0.02 X10^3/uL; Eosinophils% 0.1 % (0-5); Hemoglobin 11.1 g/dL (12.0-15.0); Lymphocyte # 0.55 X10^3/ul (0.83-4.51); Lymphocyte % 4.1 % (19-41); Mean Corp Hgb Conc 32.6 g/dL (32-36); Mean Corpuscular Hgb 31.1 pg (27.0-32.0); Mean Corpuscular Volume 95.2 fL (81-99); Mean Platelet Vol. 8.7 fl (6.2-12.0); Monocyte# 0.58 X10^3/uL; Monocyte% 4.3 % (0-10); NRBC Flagged by Analyzer 0 % (0-5); Neutrophil # 12.13 X10^3/uL (2.7-7.7); Neutrophil % 90.9 % (47-70); POSITIVE DIFFERENTIAL YES; Platelet Count 236 K/mm3 (150-450); RBC Distribution Width CV 12.9 % (11.6-14.6); RBC Distribution Width SD 45.2 fl (35.1-43.9); Red Blood Count 3.57 M/mm3 (4.2-5.4); White Blood Count 13.4 K/mm3 (4.4-11.0)
[2024-02-10 16:27] LABS: AST(SGOT) 28 U/L (15-37); Alanine Aminotransfer ALT/SGPT 28 U/L (13-56); Albumin, Serum 3.5 g/dL (3.2-5.0); Alkaline Phosphatase 140 U/L (45-117); Anion Gap 5 (5-15); BUN 19 mg/dL (7-18); BUN/Creat Ratio 17.3 RATIO (10-20); Calcium,Total 9.2 mg/dL (8.5-10.1); Chloride 98 mmol/L (98-107); EST Glomerular Filtration Rate 50 mL/min (>60); Est Glom Filt Rate - Afr Amer 61 mL/min (>60); Estimated Creatinine Clearance 36.97 ml/min; Globulin 3.4 g/dL (2.2-4.2); Glucose 93 mg/dL (74-106); Lipase 24 U/L (13-75); Potassium 4.7 mmol/L (3.5-5.1); Protein, Total 6.9 g/dL (6.4-8.2); Sodium Level 130 mmol/L (136-145); Troponin-I HS 6 pg/mL (3.0-54.0)
[2024-02-10 16:37] VITALS: BP 140/63; PULSE 90; RESP 16
[2024-02-10 16:42] LABS: BNP,B-Type NATRIURETIC PEPTIDE 51.9 pg/mL (0-100); Lactic Acid 1.8 mmol/L (0.4-1.9)
[2024-02-10 17:41] LABS: Mucous, Urine 0 SEEN /hpf (<or=2+); Red Blood Cells-Urine 0 SEEN /hpf (0-5)
[2024-02-10 17:44] LABS: Color, Urine Yellow (Yellow); Glucose, Dipstick Normal (Normal); Ketone-Dipstick Negative (Negative); Leukocyte Esterase-Dipstick 25 /ul (Negative); Nitrite-Dipstick Negative (Negative); Occult Blood-Urine Negative /ul (Negative); Protein-Dipstick Negative (Negative); Specific Gravity, Urine 1.005 (1.002-1.030); Urine Bilirubin Dipstick Negative (Negative); Urine Clarity Sl. Cloudy (Clear); Urine Urobilinogen Normal (Normal)
[2024-02-10 18:00] VITALS: BP 139/43; PULSE 96; RESP 18
[2024-02-10 18:01] LABS: Squamous Epithelial Cells - UA 0-5 SEEN /hpf (5-10); White Blood Cells 0-5 SEEN /hpf (0-5)
[2024-02-10 18:02] LABS: Bacteria RARE /hpf (None Seen); Transitional Epithelial - Ur 0-5 SEEN /hpf (0-5)
[2024-02-10] MEDS: Cephalexin 250 MG Capsule 500 MG PO (18:59)
[2024-02-10 19:02] VITALS: BP 114/56; PULSE 90; RESP 18; TEMP 36.6; O2SAT 95
== END 2024-02-10 19:11 | disposition home or self-care (01) ==
PROVIDERS: Emergency Provider Emergency Medicine; PCP Internal Medicine; Visit Provider Emergency Medicine
DX: L03.116 Cellulitis of left lower limb (principal); R60.0 Localized edema; M54.9 Dorsalgia, unspecified; R19.7 Diarrhea, unspecified; I10 Essential (primary) hypertension; R11.2 Nausea with vomiting, unspecified; E78.2 Mixed hyperlipidemia; R10.84 Generalized abdominal pain; Z79.899 Other long term (current) drug therapy
CPT/HCPCS: 74177; 80053; 81001; 83605; 83690; 83880; 84484; 85025; 93005; 96361; 96374; 99283; J7030; Q9967; A4216; J2405

== ENCOUNTER → 2024-02-12 | Outpatient (CLI) | payer MEDICARE, SELFPAY ==
[2024-02-12 11:58] LABS: Absolute Lymphocyte Count 1.35 X10^3/uL (0.83-4.51); Absolute Neutrophil Count 2.7 X10^3/uL (2.0-7.7); Basophil# 0.03 X10^3/uL; Basophil% 0.6 % (0-1); Eosinophil# 0.17 X10^3/uL; Eosinophils% 3.6 % (0-5); Hematocrit 32.7 % (37-47); Hemoglobin 10.1 g/dL (12.0-15.0); Lymphocyte # 1.35 X10^3/ul (0.83-4.51); Lymphocyte % 28.4 % (19-41); Mean Corp Hgb Conc 30.9 g/dL (32-36); Mean Corpuscular Hgb 30.7 pg (27.0-32.0); Mean Corpuscular Volume 99.4 fL (81-99); Mean Platelet Vol. 9.2 fl (6.2-12.0); Monocyte# 0.51 X10^3/uL; Monocyte% 10.7 % (0-10); NRBC Flagged by Analyzer 0 % (0-5); Neutrophil # 2.69 X10^3/uL (2.7-7.7); Neutrophil % 56.5 % (47-70); Platelet Count 246 K/mm3 (150-450); RBC Distribution Width SD 46.6 fl (35.1-43.9); Red Blood Count 3.29 M/mm3 (4.2-5.4); White Blood Count 4.8 K/mm3 (4.4-11.0)
[2024-02-12 12:42] LABS: ALB/GLOB Ratio 1.1 RATIO (0.9-2.4); AST(SGOT) 26 U/L (15-37); Alanine Aminotransfer ALT/SGPT 24 U/L (13-56); Albumin, Serum 3.5 g/dL (3.2-5.0); Alkaline Phosphatase 126 U/L (45-117); Anion Gap 5 (5-15); BUN 20 mg/dL (7-18); Chloride 106 mmol/L (98-107); Creatinine, Serum 0.87 mg/dL (0.55-1.02); EST Glomerular Filtration Rate 66 mL/min (>60); Est Glom Filt Rate - Afr Amer 80 mL/min (>60); Globulin 3.3 g/dL (2.2-4.2); Glucose 96 mg/dL (74-106); Potassium 4.7 mmol/L (3.5-5.1); Protein, Total 6.8 g/dL (6.4-8.2); Sodium Level 136 mmol/L (136-145)
== END | disposition home or self-care (01) ==
LOC: BIMLAB 10:13
PROVIDERS: PCP Internal Medicine; Referring Provider Nurse Practitioner; Visit Provider Nurse Practitioner
DX: I10 Essential (primary) hypertension (principal); E78.5 Hyperlipidemia, unspecified
CPT/HCPCS: 36415; 80053; 85025

== ENCOUNTER → 2024-02-12 | Outpatient (CLI) | payer MEDICARE, SELFPAY ==
--- NOTE | 2024-02-12 13:41 | VDLE_ITS ---
Reason For Study: LLE SWELLING RIGHT LEFT CFV is compressible, spontaneous, phasic, GSV is normal. competent and demonstrates normal CFV is compressible, spontaneous, phasic, augmentation. competent, and demonstrates normal Procedure augmentation. This is a venous duplex using B-mode, color FV is compressible, spontaneous, phasic, flow and spectral Doppler. competent and demonstrates normal Exam performed in department. augmentation. A preliminary report was called and/or faxed POP V is compressible, spontaneous, phasic, to Yeimy Estrada NP-C @ [phone] @ 14:15. competent and demonstrates normal augmentation. T/P Trunk is compressible. PTV is compressible. LT PerV is compressible. VL/Venous Duplex US, Unilateral Interpretation Summary Deep veins of the left lower extremity are patent and compressible segmentally. There is no evidence of left lower extremity deep vein thrombosis. Valvular competence appears intac t within the proximal deep venous system on the left . The left great saphenous vein appears patent a nd compressible segmentally. The right common femoral vein is patent and compressible . Ordering Physician: Yeimy Estrada Referring Physician: Lindy Fonseca Performed By: Shahida Bergeron, NESSA, RVT
== END | disposition home or self-care (01) ==
LOC: CVS 13:40
PROVIDERS: PCP Internal Medicine; Referring Provider Nurse Practitioner; Visit Provider Nurse Practitioner
DX: M79.89 Other specified soft tissue disorders (principal)
CPT/HCPCS: 93971

== ENCOUNTER 2024-03-09 13:00 | Outpatient (RCR) | payer MEDICARE, SELFPAY ==
--- NOTE | 2024-02-03 11:56 | HP.PTEVAL ---
Patient's Visit Information Visit Information Visit Information: LISBET RIVERA is a 83 year old F referred to Physical Therapy by [facility] Ellison with a diagnosis of ARTHRODESIS. Date of Evaluation: 02/03/24 Physical Therapist: Adria Cartwright, PT, Cert MDT, OCS Visit Plan Frequency: 2x /Week Duration: 6 Weeks Plan: S/P LUMBAR FUSION PT INTERVENTIONS DLS ,POSTURAL EX'S , BLE ( ESPECIALLY LEFT LEG ),LE FLEXABILITY ,ACTIVITY MODIFICATION AND CP Subjective Subjective: This 83 y/o female presents to physical therapy with s/p lumbar fusion on 01/18/24 DR Cortez at [facility] with surgery 2-4 oblique lumbar interbody fusion (OLIF), minimally invasive left sided approach, lateral decubitus: L2-3 anterolateral spinal fusion L3-4 anterolateral L2-3 insertion of cage ,L3-4 insertion of cage Exploration of previous fusion. Patient has lumbar precautions no BLT and gallon of milk 8#. Medication for pain hydrocodone ,meloxicam. Patient also was d/c with [facility]ww.. Patient was d/c 01/19 with [facility]. Patient had prior surgery 2003 ,and 2nd surgery revision of surgery lumbar 2021 .Patient pain worse past several months. Seen Dr Cortez had MRI. Patient has had pain management and prior PT. Patient uses [facility] community distances. Patient walks no device in home. Patient needs assist with bathing and shoes. Daughter in law cooks and cleaning. Lives 1 story home with walk in shower grab bars. Patient has leg leg pain worse at night. Aggravating factors walking/standing .Alleviating factors rest. c/o paresthesia/tingling left leg. Coughing/sneezing . Bowel/bladder good. Patient condition affects QOL and function. Patient goals less pain adn walk. SOCIAL: VOCATION: RETIRED Pain Bilateral Back: Pain Intensity (Out of 10): 9 Pain Intensity Range: 10 Left Lower Extremity: Pain Intensity (Out of 10): 9 Pain Intensity Range: 10 Objective Objective: POSTURE: mild forward posture INCISION: well approximate GAIT: reciprocal pattern with fww mild forward posture NEURO: c/o paresthesia/tingling ,reflexes L3-4,L4-5 ,L5-S1 1/3 LUMBAR ROM: flexion mod loss ,extension severe ,side glides mod FLEXIBILITY: hamstrings mod tight pain left MMT: ( peak force) left quads 8.0 ,hamstrings 8.1 ,hip flexion 8.9 ,ankle 4/5 ,right 4/5 except 4-/5 hip flexion Special Tests L/S Slump test left side: Positive L/S Slump test right side: Negative L/S Left Straight Leg Raise: Positive L/S Right Straight Leg Raise: Negative Balance/Special Test Scores Oswestry Low Back Score: 36 Goals Goal 1:: Patient to be I with HEP for back Goal Time Frame: 4-6 Weeks Goal 2:: Patient to demonstrate 50% improvement with less pain and improved function and gait Goal Time Frame: 4-6 Weeks Goal 3:: Patient to improve lumbar ROM for function of recovery to put on shoes. Goal Time Frame: 4-6 Weeks Goal 4:: Patient to improve peak force quads/hams /hip by 5-10# to improve function and gait Goal Time Frame: 4-6 Weeks Goal 5:: Patient to improve gait community distance with improve endurance no device Goal Time Frame: 4-6 Weeks Goal 6:: Patient to improve back oswestry score by 5 points to improve function Goal Time Frame: 4-6 Weeks Rehabilitation Potential Physical Therapy Diagnosis: This patient underwent s/p lumbar fusion 01/18/24 with pain ,weakness LLE ,decrease gait ,decrease lumbar ROM thus benefit from skilled PT Rehabilitation Potential: Good Anticipated Interventions Patient/Client Instruction: Educate patient on: Condition and Plan of Care For the Purpose of:: To decrease pain, To increase ROM, To improve muscle performance and motor function, To improve ability to perform ADL's, To increase tolerance to activity/condition/position, To improve ability of physical actions for home/community/work/leisure, To improve health of tissue, To decrease soft tissue restriction, To increase flexibility/ROM, To improve balance, To assume or resume ADL's and To reduce risk of recurrence Therapeutic Exercise to Include: Strength training, Endurance training, Balance training, Body mechanics, Postural training, Flexibilty training, Gait and locomotor training and Dynamic Lumbar Stabilization Comment: BLE ESPECIALLY LEFT LEG For the Purpose of:: To decrease pain, To increase ROM, To improve muscle performance and motor function, To improve ability to perform ADL's, To increase tolerance to activity/condition/position, To improve performance and independence with ADL's, To improve ability of physical actions for home/community/work/leisure, To improve gait and locomotor functions, To increase flexibility/ROM, To improve endurance, To improve balance and To improve tolerance to ADL's Text: Thank you for the opportunity to evaluate your patient. For Medicare and Medicare HMO plans, please review the plan of care and approve it. It will need to be FAXED BACK to us at [phone] for Medicare purposes. For Medicare only, by signing this I certify the plan of care. Please let me know if there are questions or concerns regarding this plan of care. Physician Signature: Date:
--- NOTE | 2024-03-09 13:24 | HP.PTDCSUM_ITS ---
Discharge Summary D/C summary: It has been my pleasure to treat LISBET RIVERA referred by FER Ellison, with the diagnosis of ARTHRODESIS for a total of 9 visit(s). Discharge Date: 03/09/24 Please see the following information for a summary of their discharge status. Subjective Subjective: Patient is happy with progress . Seen DR doing well ,x-rays looked good Pain Bilateral Back: Pain Intensity (Out of 10): 0 Left Lower Extremity: Pain Intensity (Out of 10): 0 R hip: Pain Intensity (Out of 10): 0 Overall Improvement % Improvement: 90 Objective Objective/Function: POSTURE: mild forward posture INCISION: well approximate GAIT: reciprocal pattern NEURO: c/o paresthesia/tingling ,reflexes L3-4,L4-5 ,L5-S1 1/3 LUMBAR ROM: flexion min loss ,extension min/mod ,side glides mod FLEXIBILITY: hamstrings mod tight pain left MMT: ( peak force) left quads 33.9 ,hamstrings 28.9 ,hip flexion 23.9 ,ankle 4/5 ,right 4/5 except 4-/5 hip flexion Goals Goal 1:: Patient to be I with HEP for back Goal Progress: Goal Met Goal 2:: Patient to demonstrate 50% improvement with less pain and improved fun ction and gait Goal Progress: Goal Met Goal 3:: Patient to improve lumbar ROM for function of recovery to put on shoes. Goal Progress: Goal Met Goal 4:: Patient to improve peak force quads/hams /hip by 5-10# to improve function and gait Goal Progress: Goal Met Goal 5:: Patient to improve gait community distance with improve endurance no device Goal Progress: Goal Met Goal 6:: Patient to improve back oswestry score by 5 points to improve function Goal Progress: Goal Met Plan Plan: D/C TO HEP D/C Information Discharge Comments: HEP d/c sentence: If there are questions or concerns regarding this patient's physical therapy, please feel free to call me at [phone]. Thank you for the referral of this patient. Sincerely, Adria Cartwright, PT, Cert MDT, OCS Balance/Gait/Functional tests Balance/Special Test Scores Oswestry Low Back Score: 7 Improvement % Improvement: 90
== END 2024-03-09 19:00 | disposition home or self-care (01) ==
LOC: PT 13:00
PROVIDERS: PCP Internal Medicine; Referring Provider Student in an Organized Health Care Education/Training Program; Visit Provider Student in an Organized Health Care Education/Training Program
DX: Z98.1 Arthrodesis status (principal)
CPT/HCPCS: 97110; 97162; 97530